=== PATIENT | female | born 1950 | race Caucasian/White ===

== ENCOUNTER 2017-11-17 07:13 | Emergency (ER) | payer MEDICARE, SELFPAY ==
[2017-11-17 07:19] VITALS: BP 147/77; PULSE 78; RESP 16; TEMP 36.6; O2SAT 97
--- NOTE | 2017-11-17 07:23 | ED.GENADUL ---
Disposition Clinical Impression: Olecranon bursitis, left elbow Disposition: HOME Condition: Stable Instructions: Elbow Bursitis (ED) Additional Instructions: follow up with your primary care provider if no improvement in 1 week if you have severe worsening of pain or it becomes red and warm to touch return to the emergency department Medical Decision Making - Medical Decision Making pt here with olecranon bursitis, no evidence of infection at this time. Advised RICE and f/u with pcp - Differential Diagnosis olecranon bursitis, cellulitis History of Present Illness - General Chief complaint: Orthopedic Stated complaint: LT ELBOW SWOLLEN Time Seen by Provider: 11/17/17 07:15 Source: patient Mode of arrival: ambulatory Limitations: no limitations - History of Present Illness Initial comments: 67 yo female comes in with cc of left elbow swelling for over a week. Denies trauma, redness, or pain. She has an enlarged olecranon bursa with no redness, warmth, tenderness and has full rom of the elbow. MD Complaint: left elbow swelling Onset/Timin -: week(s) Improves with: none Worsens with: none - Related Data Multivitamin 1 tab PO DAILY tab 10/01/16 Fluoxetine HCl 40 mg PO DAILY #90 tab-cap 12/12/16 Vitamin B Complex 1 each PO DAILY #90 cap 04/17/17 Ferrous Sulfate [Feosol] 325 mg PO DAILY #60 cap 05/13/17 Quetiapine Fumarate 50 mg PO hs prn #120 tab-cap 07/08/17 Thiamine Mononitrate [Vitamin B-1] 100 mg PO DAILY #90 tab 07/08/17 Pantoprazole Sodium 40 mg PO DAILY@0730 #90 tabcr 07/31/17 Cholecalciferol (Vitamin D3) [Vitamin D3] 3,000 unit PO DAILY #90 cap 08/10/17 Fluticasone Propionate [Flonase] 2 sprays NS BID #1 btl 08/18/17 Amlodipine Besylate 5 mg PO DAILY #60 tab-cap 09/25/17 Trazodone HCl 100 mg PO HS #120 tab-cap 09/25/17 Ventress-3 Fatty Acids/Fish Oil [Fish Oil 1,000 mg Softgel] 1 each PO DAILY #90 cap 11/13/17 Simvastatin 10 mg PO HS #90 tab 11/13/17 Sucralfate 1 gm PO AC & HS #90 tab 11/13/17 Allergies Allergy/AdvReac Type Severity Reaction Status Date / Time No Known Allergies Allergy Unverified 11/17/17 07:24 Review of Systems Constitutional: denies: fever Respiratory: denies: shortness of breath Cardiovascular: denies: chest pain Musculoskeletal: denies: back pain Skin: denies: rash Comment: All other systems reviewed and negative Past Medical History - Past Medical History Medical history: hypertension, liver disease anemia, duodenitis, gastritis, C. diff colitis Surgical history: hysterectomy - Social History Alcohol use: occasionally (reports significant decrease in alcohol consumption since last year) Drug use: none General Exam - General Limitations: no limitations General appearance: alert, in no apparent distress - Head Head exam: Present: atraumatic - Eye Eye exam: Present: normal apperance - ENT ENT exam: Present: mucous membranes moist - Neck Neck exam: Present: normal inspection - Respiratory Respiratory exam: Absent: respiratory distress - Cardiovascular Cardiovascular Exam: Present: regular rate - Extremities Exam Extremities exam: Present: full ROM, normal capillary refill - Neurological Exam Neurological exam: Present: alert, oriented X3. Absent: motor sensory deficit - Skin Skin exam: Present: warm Course Vital Signs - 24 hr 11/17/17 07:19 Temperature 97.8 F Pulse 78 Respiratory 16 Rate Blood Pressure 147/77 Pulse Oximetry 97
== END 2017-11-17 07:32 | disposition home or self-care (01) ==
PROVIDERS: Emergency Provider Emergency Medicine; PCP Internal Medicine
DX: M70.22 Olecranon bursitis, left elbow (principal); I10 Essential (primary) hypertension
CPT/HCPCS: 99282 ×2

== ENCOUNTER → 2017-12-03 07:53 | Outpatient (CLI) | payer MEDICARE, SELFPAY ==
[2017-12-03 11:27] LABS: Abs Immature Grans 0.01 k/cumm (0.0-0.09); Absolute Basophil Count 0.03 k/cumm (0.0-0.2); Absolute Lymphocyte Count 0.93 k/cumm (1.2-3.4); Absolute Monocyte Count 0.37 k/cumm (0.11-0.7); Absolute Neutrophil Count 4.51 k/cumm (1.2-6.7); Basophils % 0.5; Eosinophils % 1.7; HCT 38.5 % (36.0-46.0); HGB 13.1 g/dL (12.0-15.5); Immature Grans % 0.2; Lymphocytes % 15.6; Mean Corpuscular Hemoglobin 31.6 pg (27.0-33.0); Mean Platelet Volume 12.3 fL (8.0-11.0); Monocytes % 6.2; Neutrophils % 75.8; Platelet Count 193 x1000/uL (130-400); RBC 4.14 m/cumm (4.00-5.20); RBC Distribution Width 12.6 % (11.7-14.6); White Blood Cell Count 5.95 k/cumm (4.4-10.8)
[2017-12-03 11:41] LABS: Iron 80 ug/dL (50-175); Total Iron Binding Capacity 257 ug/dL (250-450); Transferrin Sat 31 % (15-50)
== END ==
PROVIDERS: PCP Internal Medicine; Visit Provider Internal Medicine
DX: D64.9 Anemia, unspecified (principal)
CPT/HCPCS: 36415; 83540; 83550; 85025

== ENCOUNTER 2018-04-21 09:08 | Outpatient (CLI) | payer MEDICARE, SELFPAY ==
[2018-04-21 11:43] LABS: Abs Immature Grans 0.01 k/cumm (0.0-0.09); Absolute Basophil Count 0.03 k/cumm (0.0-0.2); Absolute Eosinophil Count 0.23 k/cumm (0.0-0.7); Absolute Lymphocyte Count 0.81 k/cumm (1.2-3.4); Absolute Monocyte Count 0.44 k/cumm (0.11-0.7); Absolute Neutrophil Count 4.98 k/cumm (1.2-6.7); Basophils % 0.5; Eosinophils % 3.5; HCT 39.9 % (36.0-46.0); HGB 13.4 g/dL (12.0-15.5); Immature Grans % 0.2; Lymphocytes % 12.5; Mean Corp. HGB Concentration 33.6 g/dL (32.0-36.0); Mean Corpuscular Hemoglobin 30.4 pg (27.0-33.0); Mean Corpuscular Volume 90.5 fL (80-95); Mean Platelet Volume 12.3 fL (8.0-11.0); Monocytes % 6.8; Neutrophils % 76.5; Platelet Count 206 x1000/uL (130-400); RBC 4.41 m/cumm (4.00-5.20); RBC Distribution Width 12.3 % (11.7-14.6)
[2018-04-21 11:49] LABS: Iron 33 ug/dL (50-175); Total Iron Binding Capacity 269 ug/dL (250-450); Transferrin Sat 12 % (15-50)
[2018-04-21 11:57] LABS: ALT 19 U/L (12-78); AST 12 U/L (15-37); Alkaline Phosphatase 74 U/L (46-116); Anion Gap 7.5 mmol/L (3-11); BUN 21 mg/dL (7-18); Bilirubin, Total 0.6 mg/dL (0.2-1.0); CO2 27.5 mmol/L (21.0-32.0); CREATININE 1.09 mg/dL (0.55-1.02); Calcium 9.6 mg/dL (8.5-10.1); Chloride 104 mmol/L (98-107); Estimated GFR 50.07 (mL/min/1.73m2); Glucose 103 mg/dL (70-100); Potassium 3.6 mmol/L (3.5-5.1); Sodium 139 mmol/L (136-145); Total Protein 6.9 g/dL (6.4-8.2)
== END 2018-04-21 09:28 ==
PROVIDERS: PCP Internal Medicine; Visit Provider Internal Medicine
DX: F10.10 Alcohol abuse, uncomplicated (principal); D64.9 Anemia, unspecified; R42 Dizziness and giddiness; Z86.79 Personal history of other diseases of the circulatory system
CPT/HCPCS: 36415; 80053; 83540; 83550; 85025

== ENCOUNTER 2019-01-19 09:45 | Outpatient (CLI) | payer MEDICARE, SELFPAY ==
[2019-01-19 12:45] LABS: Abs Immature Grans 0.03 k/cumm (0.0-0.09); Absolute Basophil Count 0.04 k/cumm (0.0-0.2); Absolute Eosinophil Count 0.14 k/cumm (0.0-0.7); Absolute Lymphocyte Count 0.87 k/cumm (1.2-3.4); Absolute Neutrophil Count 6.05 k/cumm (1.2-6.7); Basophils % 0.5; Eosinophils % 1.9; HCT 37.8 % (36.0-46.0); HGB 12.5 g/dL (12.0-15.5); Immature Grans % 0.4; Lymphocytes % 11.6; Mean Corp. HGB Concentration 33.1 g/dL (32.0-36.0); Mean Corpuscular Hemoglobin 29.8 pg (27.0-33.0); Mean Corpuscular Volume 90.2 fL (80-95); Mean Platelet Volume 11.6 fL (8.0-11.0); Monocytes % 5.3; Neutrophils % 80.3; Platelet Count 235 x1000/uL (130-400); RBC 4.19 m/cumm (4.00-5.20); RBC Distribution Width 12.8 % (11.7-14.6); White Blood Cell Count 7.53 k/cumm (4.4-10.8)
[2019-01-19 13:48] LABS: ALT 14 U/L (14-59); AST 10 U/L (15-37); Alkaline Phosphatase 71 U/L (46-116); Anion Gap 6.7 mmol/L (3-11); BUN 15 mg/dL (7-18); Bilirubin, Total 0.6 mg/dL (0.2-1.0); CO2 28.3 mmol/L (21.0-32.0); CREATININE 1.21 mg/dL (0.55-1.02); Calcium 9.2 mg/dL (8.5-10.1); Chloride 103 mmol/L (98-107); Estimated GFR 44.38 (mL/min/1.73m2); Glucose 91 mg/dL (70-100); Potassium 4.2 mmol/L (3.5-5.1); Sodium 138 mmol/L (136-145); Total Protein 6.7 g/dL (6.4-8.2)
[2019-01-19 14:22] LABS: Iron 33 ug/dL (50-175); Total Iron Binding Capacity 282 ug/dL (250-450); Transferrin Sat 12 % (15-50)
== END 2019-01-19 10:05 ==
PROVIDERS: PCP Internal Medicine; Visit Provider Internal Medicine
DX: R50.9 Fever, unspecified (principal); I10 Essential (primary) hypertension; Z98.890 Other specified postprocedural states; D50.9 Iron deficiency anemia, unspecified
CPT/HCPCS: 36415; 80053; 83540; 83550; 85025

== ENCOUNTER 2019-02-19 02:09 | Outpatient (CLI) | payer MEDICARE, SELFPAY ==
--- NOTE | 2019-02-19 07:39 | DI.MAMMO_ITS ---
EXAM: MAMMO SCREENING CLINICAL HISTORY: screening, Z12.39 TECHNIQUE: Mammograms were interpreted according to the usual protocol including computer analysis w [employer] CAD system, tomosynthesis and C-view imaging. COMPARISON: January 2016 FINDINGS: The breasts are heterogeneously dense. No dominant mass or clumped microcalcification is identified in either breast. The current examination is compared with previous examinations including February 01 and there has been no gross interval change in appearance in comparison with the previous studies. IMPRESSION: No specific evidence of at this time. Routine screening examinations are suggested at yearly interva ls in this age group according to the ACS ACR guidelines. Category 1, breast density category C. BI-RADS Cat 1 - Negative Breast Density - Category C - Heterogeneously dense
== END 2019-02-19 02:29 ==
PROVIDERS: PCP Internal Medicine; Visit Provider Internal Medicine
DX: Z12.31 Encounter for screening mammogram for malignant neoplasm of breast (principal)
CPT/HCPCS: 77063; 77067

== ENCOUNTER 2019-10-05 14:32 | Emergency (ER) | payer MEDICARE, SELFPAY ==
[2019-10-05 14:37] VITALS: BP 165/84; PULSE 83; RESP 16; TEMP 36.7; O2SAT 97
--- NOTE | 2019-10-05 18:40 | ED.GENADUL_ITS ---
Discharge Plan Disposition Patient Disposition: HOME Condition: Stable Discharge Details Chief Complaint: RashLesion Clinical Impression: Bed bug bite, Itching Primary Care Provider: Allyson Gamez ED Provider: Jaz Golden Home Meds and New Rx's Prescriptions: New permethrin 5 % cream 1 applic TP ONCE Qty: 60 RF: 0 prednisone 20 mg tablet 40 mg PO DAILY Qty: 10 RF: 0 Continued sucralfate 1 gram tablet 1 gm PO BID RF: 0 ketoconazole 2 % shampoo 1 applic Topical PRN Qty: 120 RF: 3 simvastatin 10 mg tablet 10 mg PO HS Qty: 90 RF: 4 thiamine mononitrate (vit B1) 100 mg tablet 100 mg PO DAILY Qty: 90 RF: 4 amlodipine 5 mg tablet 5 mg PO DAILY Qty: 90 RF: 3 fluoxetine 40 mg capsule 40 mg PO DAILY Qty: 90 RF: 3 vitamin B complex Capsule 1 cap PO DAILY Qty: 90 RF: 3 quetiapine 25 mg tablet 50 mg PO hs prn Qty: 120 RF: 4 cholecalciferol (vitamin D3) 3,000 unit tablet 3,000 unit PO DAILY Qty: 90 RF: 4 pantoprazole 40 mg tablet,delayed release (DR/EC) 40 mg PO DAILY Qty: 90 RF: 3 trazodone 50 mg tablet 100 mg PO HS Qty: 120 RF: 4 omega-3 fatty acids-fish oil 300-1,000 mg capsule 1 cap PO DAILY Qty: 90 RF: 3 Discharge Instructions Instructions: Bed Bugs (ED) Additional Instructions: Use treatment for scabies after all close and bedding have been washed with hot water. Apply cream sparingly her face and leave on overnight then wash off in the morning and again re-wash the bedding in the clothes you slept in. Use Benadryl every 6 hours for itching if needed. Prednisone for inflammation for the next 5 days and to help alleviate itching. Follow-up with primary care doctor if not improved in the next 3 to 5 days. Return for any worsening, concerns or alarming symptoms sooner if needed Medical Decision Making 69-year-old woman concerned for possibility of bedbugs or mite infestation. Patient has had 1 month of symptoms described as itching and quite bothersome. Patient denies any changes to her lifestyle or new exposures. Patient reports her apartment complex was recently treated for bedbugs however patient symptoms have not resolved. Patient denies any difficulty breathing or shortness of breath or wheezing. Denies any symptoms of angioedema. Patient does have a diffuse hive-like rash which is somewhat confluent behind the knees. Rash is blanching. Patient is in no distress, breath sounds are clear and full. Patient's vital signs reviewed and mild hypertension noted without any sign of hypertension urgency or emergency. After evaluation of the patient will plan to treat with permethrin for the possibility of scabies as patient's rash has been present for quite some time and does have areas behind the folds of the knee which are somewhat concerning appearing. No significant webspace involvement. Patient does have a hive-like appearance to the rash therefore will recommend addition of Benadryl and prednisone x5 days. Patient agrees with this plan of care. Patient discussed and recommended precautions regarding washing her bedding and clothing prior to scabies treatment. Recommended patient follow-up with PCP for any persistence of symptoms or return to the emergency room for any worsening or concerns. Patient agrees with this plan of care. The patient was stable and requested discharge. Prior to discharge, my usual and customary return precautions were reviewed with the patient - this included follow-up instructions and reasons to return to the Emergency Department if conditions worsens, does not improve as expected, or other new concerns arise. HPI General Date/Time Provider Initiated Documentation: 10/05/19 14:57 . HPI Narrative: This is a pleasant 69-year-old woman who is describing a diffuse rash to her arms trunk and legs. Patient reports itching rash for the last month which began on August 22. Patient reports that the apartment complex in which she lives had noted bedbugs. Patient ultimately reports that her place of living was treated for bedbugs on September 22 however patient has persistent itching. Patient complains of diffuse itching and scattered hive-like rash. Patient denies any new exposures. Denies any new detergents. Patient denies any difficulty breathing shortness of breath or wheezing. She has no headache or dizziness. Patient reports been eating and drinking without difficulty. Urinating and moving bowels normally. Patient is in no apparent distress at this time. Patient has tried no management of her rash and itching. Patient concerned with the possibility of bed bugs and is requesting medication management. Patient denies any throat or perioral tingling or swelling. No sore throat, voice change. Patient again denies any new medications or changes in her lifestyle. Related Data Home Medications Medication Instructions Recorded Confirmed simvastatin 10 mg tablet 10 mg PO HS #90 tab 12/19/18 10/05/19 thiamine mononitrate (vit B1) 100 100 mg PO DAILY #90 tab 02/17/19 10/05/19 mg tablet amlodipine 5 mg tablet 5 mg PO DAILY #90 tab 03/20/19 10/05/19 fluoxetine 40 mg capsule 40 mg PO DAILY #90 cap 03/23/19 10/05/19 vitamin B complex 1 cap PO DAILY #90 cap 03/23/19 10/05/19 quetiapine 25 mg tablet 50 mg PO hs prn #120 tab-cap 04/16/19 10/05/19 cholecalciferol (vitamin D3) 75 3,000 unit PO DAILY #90 tab 06/02/19 10/05/19 mcg (3,000 unit) tablet pantoprazole 40 mg tablet,delayed 40 mg PO DAILY #90 tab 06/17/19 10/05/19 release ketoconazole 2 % shampoo 1 applic TOPICAL PRN #120 ml 07/09/19 10/05/19 sucralfate 1 gram tablet 1 gm PO BID tab 07/09/19 10/05/19 trazodone 50 mg tablet 100 mg PO HS #120 tab-cap 07/10/19 10/05/19 omega-3 fatty acids-fish oil 300 1 cap PO DAILY #90 cap 08/14/19 10/05/19 mg-1,000 mg capsule permethrin 1 applic TP ONCE #60 gm 10/05/19 prednisone 40 mg PO DAILY #10 tab 10/05/19 Previous Rx's Medication Instructions Recorded simvastatin 10 mg tablet 10 mg PO HS #90 tab 12/19/18 thiamine mononitrate (vit B1) 100 100 mg PO DAILY #90 tab 02/17/19 mg tablet amlodipine 5 mg tablet 5 mg PO DAILY #90 tab 03/20/19 fluoxetine 40 mg capsule 40 mg PO DAILY #90 cap 03/23/19 vitamin B complex 1 cap PO DAILY #90 cap 03/23/19 quetiapine 25 mg tablet 50 mg PO hs prn #120 tab-cap 04/16/19 cholecalciferol (vitamin D3) 75 3,000 unit PO DAILY #90 tab 06/02/19 mcg (3,000 unit) tablet pantoprazole 40 mg tablet,delayed 40 mg PO DAILY #90 tab 06/17/19 release ketoconazole 2 % shampoo 1 applic TOPICAL PRN #120 ml 07/09/19 trazodone 50 mg tablet 100 mg PO HS #120 tab-cap 07/10/19 omega-3 fatty acids-fish oil 300 1 cap PO DAILY #90 cap 08/14/19 mg-1,000 mg capsule permethrin 1 applic TP ONCE #60 gm 10/05/19 prednisone 40 mg PO DAILY #10 tab 10/05/19 Allergies Allergy/AdvReac Type Severity Reaction Status Date / Time No Known Allergies Allergy Unverified 10/05/19 14:44 General Stated Complaint: RashLesion MAUDE: 4 Review of Systems All systems reviewed & are unremarkable except as noted in HPI and below PFSH Medical History adult child of alcoholic parents (Inactive) Anxiety (Inactive) adult child of alcoholic Arthritis of first MTP joint (Inactive) Clostridium difficile colitis (Inactive) Family estrangement (Inactive) History of anxiety disorder (Inactive) 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 Brother No problems noted. Social History Smoking/Tobacco Use Status: Former Tobacco Use Alcohol Intake: current Alcohol Intake frequency: a few times a week Drug use: Occasionally Substance use type: marijuana Household members: none Pets and animals: No Duration: 30-45 minutes/day Frequency: 5-6 times per week Shira/Buddhism: None Special shira needs: No Do you feel safe at home: Yes Do you feel safe in your relationship?: Yes Exam Narrative Exam Narrative: CONST: Healthy appearing patient, in no acute distress. Well hydrated. Alert and oriented. HENMT: Head nomocephalic, normal to inspection. Atraumatic. Hearing grossly normal. Normal facial exam. Oral mucosa normal. Tounge normal. Dentition normal. Normal posterior oropharynx. Uvula midline. EYES: General normal appearance. Alignment normal. Eyelids normal. Conjunctiva normal. Sclera normal. NECK: Normal visual inspection. FROM. No lymphadenopathy. Trachea midline. No Midline tenderness. CHEST: Normal insepection of the chest. RESP: Normal respiratory effort. Speaking full sentences. No cough. No wheezing. No retractions. Clear to auscaltation. Breath sound equal and present bilaterally. CARDIO: No JVD. Normal PMI. Regular Rate. Regular Rhythm. Normal peripheral pulses. GI: Normal inspection of abdomen. No distension. Soft. Nontender. Bowel sounds present in all 4 quadrants. No rebound. No gaurding. MUSCULOSKELETAL: Normal Gait. FROM of all extremities. Distal neurovascularly intact. Sensation intact distally. SKIN: Normal. Dry. No rashes. Diffuse scattered hive-like rash, some areas that appear as if they could be tracts of rash. Patient indicates area behind her knees is mostly bothersome. Patient has welts noted diffusely which do jonathan. There is a area of swelling noted to the right thenar eminence consistent with either a confluent area of rash or a recent insect bite versus sting. Spares face and scalp NEURO: Alert and awake. Speech clear. PSYCH: Normal affect. Cooperative. Course Vital Signs Vital signs: Vital Signs Temperature 36.7 C 10/05/19 14:37 Pulse 83 10/05/19 14:37 Respiratory Rate 16 10/05/19 14:37 Blood Pressure 165/84 H 10/05/19 14:37 Pulse Oximetry 97 10/05/19 14:37 Temperature 36.7 C 10/05/19 14:37 Temperature Source Temporal Artery Scan 10/05/19 14:37 Pulse 83 10/05/19 14:37 Respiratory Rate 16 10/05/19 14:37 Respiratory Effort Non-Labored 10/05/19 14:42 Blood Pressure 165/84 H 10/05/19 14:37 Blood Pressure Position Sitting 10/05/19 14:37 Pulse Oximetry 97 10/05/19 14:37 Oxygen Delivery Method Room Air 10/05/19 14:37 Oxygen Flow Rate 0 10/05/19 14:37
== END 2019-10-05 15:55 | disposition home or self-care (01) ==
PROVIDERS: Emergency Provider Physician Assistant; PCP Nurse Practitioner
DX: L29.8 Other pruritus (principal); S80.871A Other superficial bite, right lower leg, initial encounter; S80.872A Other superficial bite, left lower leg, initial encounter; W57.XXXA Bitten or stung by nonvenomous insect and other nonvenomous arthropods, initial encounter; I10 Essential (primary) hypertension
CPT/HCPCS: 99283

== ENCOUNTER 2020-01-12 09:49 | Outpatient (REF) | payer MEDICARE, SELFPAY ==
[2020-01-12 13:55] LABS: Bilirubin Negative (Negative); Blood Negative (Negative); Clarity Sl Cloudy (Clear); Glucose Negative (Negative); Ketones Negative (Negative); Leukocyte Esterase Negative (Negative); Nitrite Negative (Negative)
== END 2020-01-12 10:09 ==
LOC: LBN 09:49
PROVIDERS: PCP Nurse Practitioner; Visit Provider Nurse Practitioner
DX: R39.15 Urgency of urination (principal)
CPT/HCPCS: 81003; 87086

== ENCOUNTER 2020-07-14 03:19 | Outpatient (CLI) | payer MEDICARE, SELFPAY ==
--- NOTE | 2020-07-14 07:15 | DI.MAMMO_ITS ---
EXAM: MG MAMMO SCREENING CLINICAL HISTORY: screening,z12.39. TECHNIQUE: Bilateral full field digital CC and MLO mammographic images were obtained with 3D tomosyn thesis and utilizing computer aided detection (CAD). COMPARISON: Prior mammograms dating back to 2011, the most recent being February 2019. FINDINGS: No new significant radiograph findings in the right breast. In the left breast a nodular densities anteriorly are unchanged from prior studies. No new spiculate d masses nor malignant-appearing microcalcification groups in either breast.. There is no significant architectural distortion nor skin thickening-retraction. IMPRESSION: Stable benign findings. No radiographic evidence of malignancy. BI-RADS Category 2 - Benign Findings Breast Density - Category C - Heterogeneously dense Breast density Category C or D implies that the patient has dense breast tissue. Dense breast tissue can make it harder to find cancer on a mammogram. Dense breast tissue is also associated with an incr eased risk of breast cancer. This information about the result of the mammogram report was provided to the patient to raise their awareness. Use this report when you speak with the patient about their risks for breast cancer, which includes their family history. At that time, you may recommend additional screening tests (Ultrasoun d or MRI) as these tests may add significant information. A negative radiographic report should not delay biopsy if a dominant or clinically suspicious mass is present. Up to ten percent of cancers are not identified on mammography. A negative report may reinforce clinical impression. Adenosis and dense breasts may obscure an underlying neoplasm. False positive reports average 6 to 10%. Patient will receive a letter notifying them of these results.
[2020-07-14 11:48] LABS: ALT 21 U/L (14-59); AST 14 U/L (15-37); Albumin 3.7 g/dL (3.4-5.0); Alkaline Phosphatase 78 U/L (46-116); Bilirubin, Direct 0.3 mg/dL (0.0-0.2); Total Protein 6.6 g/dL (6.4-8.2)
[2020-07-14 12:00] LABS: Calculated LDL 86 mg/dL (<100); Cholesterol 162 mg/dL (<200); HDL Cholesterol 60 mg/dL (40-60); Triglyceride 80 mg/dL (<150)
== END 2020-07-14 03:20 | disposition home or self-care (01) ==
LOC: LBO 03:19
PROVIDERS: PCP Nurse Practitioner; Visit Provider Nurse Practitioner
DX: Z12.31 Encounter for screening mammogram for malignant neoplasm of breast (principal); I10 Essential (primary) hypertension; F10.21 Alcohol dependence, in remission
CPT/HCPCS: 36415; 77063; 77067; 80061; 80076

== ENCOUNTER 2020-10-01 16:17 | Outpatient (REF) | payer MEDICARE, SELFPAY ==
[2020-10-01 16:41] LABS: ALT 13 U/L (14-59); AST 13 U/L (15-37); Albumin 3.7 g/dL (3.4-5.0); Alkaline Phosphatase 78 U/L (46-116); Anion Gap 12.5 mmol/L (3-11); BUN 17 mg/dL (7-18); CO2 25.5 mmol/L (21.0-32.0); CREATININE 1.3 mg/dL (0.55-1.02); Calcium 8.8 mg/dL (8.5-10.1); Chloride 103 mmol/L (98-107); Estimated GFR 40.61 (mL/min/1.73m2); Glucose 105 mg/dL (74-106); Magnesium 1.6 mg/dL (1.8-2.4); Sodium 141 mmol/L (136-145); Total Protein 6.4 g/dL (6.4-8.2)
[2020-10-01 16:50] LABS: Potassium 2.8 mmol/L (3.5-5.1)
== END 2020-10-02 16:18 | disposition home or self-care (01) ==
LOC: LBN 16:17
PROVIDERS: PCP Nurse Practitioner; Visit Provider Physician Assistant
DX: R60.0 Localized edema (principal)
CPT/HCPCS: 80053; 83735

== ENCOUNTER 2020-10-07 02:44 | Outpatient (CLI) | payer MEDICARE, SELFPAY ==
[2020-10-07 11:20] LABS: Anion Gap 9.9 mmol/L (3-11); BUN 16 mg/dL (7-18); CO2 28.1 mmol/L (21.0-32.0); CREATININE 1.1 mg/dL (0.55-1.02); Calcium 9.2 mg/dL (8.5-10.1); Chloride 104 mmol/L (98-107); Estimated GFR 49.25 (mL/min/1.73m2); Glucose 102 mg/dL (74-106); Potassium 3.8 mmol/L (3.5-5.1); Sodium 142 mmol/L (136-145)
== END 2020-10-07 02:45 | disposition home or self-care (01) ==
LOC: LBO 02:44
PROVIDERS: PCP Nurse Practitioner; Visit Provider Nurse Practitioner
DX: E87.6 Hypokalemia (principal)
CPT/HCPCS: 36415; 80048

== ENCOUNTER → 2020-12-01 09:56 | Outpatient (BNVA) | payer MEDICARE, SELFPAY | PROVIDERS: PCP Nurse Practitioner; Referring Provider Nurse Practitioner; Visit Provider Physical Therapy Assistant | DX: Z12.11 Encounter for screening for malignant neoplasm of colon (principal); I10 Essential (primary) hypertension ==

== ENCOUNTER 2022-03-27 02:34 | Outpatient (CLI) | payer OTHER, SELFPAY ==
[2022-03-27 12:30] LABS: HCT 39.4 % (36.0-46.0); MCH 29.8 pg (27.0-33.0); MCV 90 fL (80-95); MPV 11.7 fL (8.0-11.0); Platelet Count 210 10^3/uL (130-400); RBC 4.36 10^6/uL (3.93-5.22); RDW 14.1 % (11.7-14.6); RDW-SD 46.9 fL; WBC 7.07 10^3/uL (4.4-10.8)
[2022-03-27 12:48] LABS: ALT 26 U/L (14-59); AST 20 U/L (15-37); Albumin 3.7 g/dL (3.4-5.0); Alkaline Phosphatase 72 U/L (46-116); Anion Gap 8.5 mmol/L (3-11); BUN 20 mg/dL (7-18); Bilirubin, Total 1.2 mg/dL (0.2-1.0); CO2 29.5 mmol/L (21.0-32.0); CREATININE 1.3 mg/dL (0.55-1.02); Calcium 9.1 mg/dL (8.5-10.1); Calculated LDL 97 mg/dL (<100); Chloride 100 mmol/L (98-107); Cholesterol 175 mg/dL (<200); Estimated GFR 43.96 (mL/min/1.73m2); Glucose 106 mg/dL (74-106); HDL Cholesterol 59 mg/dL (40-60); Potassium 3.1 mmol/L (3.5-5.1); Sodium 138 mmol/L (136-145); Triglyceride 96 mg/dL (<150)
== END 2022-03-27 02:35 | disposition home or self-care (01) ==
LOC: LOS 02:35
PROVIDERS: PCP Nurse Practitioner Family; Visit Provider Nurse Practitioner Family
DX: K29.90 Gastroduodenitis, unspecified, without bleeding (principal); Z00.00 Encounter for general adult medical examination without abnormal findings; I10 Essential (primary) hypertension
CPT/HCPCS: 36415; 80053; 80061; 85027

== ENCOUNTER 2022-04-23 03:09 | Outpatient (CLI) | payer OTHER, SELFPAY ==
[2022-04-23 12:31] LABS: Anion Gap 8.6 mmol/L (3-11); BUN 21 mg/dL (7-18); CO2 30.4 mmol/L (21.0-32.0); CREATININE 1.3 mg/dL (0.55-1.02); Calcium 9.4 mg/dL (8.5-10.1); Chloride 100 mmol/L (98-107); Estimated GFR 43.96 (mL/min/1.73m2); Glucose 86 mg/dL (74-106); Sodium 139 mmol/L (136-145)
[2022-04-23 12:49] LABS: Potassium 2.7 mmol/L (3.5-5.1)
== END 2022-04-23 03:10 | disposition home or self-care (01) ==
LOC: LOS 03:09
PROVIDERS: PCP Nurse Practitioner Family; Visit Provider Nurse Practitioner Family
DX: I10 Essential (primary) hypertension (principal)
CPT/HCPCS: 36415; 80048

== ENCOUNTER 2022-04-27 01:10 | Outpatient (CLI) | payer OTHER, SELFPAY ==
[2022-04-27 12:23] LABS: Anion Gap 9.4 mmol/L (3-11); BUN 21 mg/dL (7-18); CO2 26.6 mmol/L (21.0-32.0); CREATININE 1.3 mg/dL (0.55-1.02); Calcium 9.1 mg/dL (8.5-10.1); Chloride 102 mmol/L (98-107); Estimated GFR 43.96 (mL/min/1.73m2); Glucose 103 mg/dL (74-106); Potassium 3.5 mmol/L (3.5-5.1); Sodium 138 mmol/L (136-145)
== END 2022-04-27 01:11 | disposition home or self-care (01) ==
LOC: LOS 01:11
PROVIDERS: PCP Nurse Practitioner Family; Visit Provider Nurse Practitioner Family
DX: E87.6 Hypokalemia (principal)
CPT/HCPCS: 36415; 80048

== ENCOUNTER 2022-07-18 01:52 | Outpatient (CLI) | payer OTHER, SELFPAY ==
--- NOTE | 2022-07-18 09:28 | DI.MAMMO_ITS ---
Exam(s) MAMMO SCREENING EXAM: MAMMO SCREENING CLINICAL HISTORY: screening,Z12.39 TECHNIQUE: Mammograms were interpreted according to the usual protocol including computer analysis w [employer] CAD system, tomosynthesis and C-view imaging. COMPARISON: 2013 through 2020 FINDINGS: The breasts are composed of heterogeneously dense fibroglandular densities, Breast Density category C . No suspicious masses or suspicious microcalcifications are seen. No skin thickening or abnormal axillary lymph nodes are seen. There has been no significant change from prior exams. IMPRESSION: BI-RADS Category 1, Negative mammogram. Yearly screening mammography is recommended. Breast Density Category C, heterogeneously Dense. The mammogram demonstrates the patient's breast tissue is dense. Dense breast tissue is very common a nd is not abnormal but dense breast tissue can make it harder to find cancer on a mammogram. Also, de nse breast tissue may increase breast cancer risk. This information about the result of the mammogram report was provided to the patient to raise their awareness. Use this report when you speak with the patient about their risks for breast cancer, which includes their family history. At that time, you may recommend additional screening tests (Ultrasound or MRI) as they might be useful based on their r isk. A negative radiographic report should not delay biopsy if a dominant or clinically suspicious mass is present. Up to ten percent of cancers are not identified on mammography. A negative report may reinforce clinical impression. Adenosis and dense breasts may obscure an underlying neoplasm. False positive reports average 6 to 10%.
== END 2022-07-18 02:12 ==
LOC: DI 01:53
PROVIDERS: PCP Nurse Practitioner Family; Visit Provider Nurse Practitioner Family
DX: Z12.31 Encounter for screening mammogram for malignant neoplasm of breast (principal)
CPT/HCPCS: 77063; 77067

== ENCOUNTER 2022-08-21 16:48 | Observation (INO) | payer OTHER, SELFPAY ==
[2022-08-21] VITALS (68 sets, daily range): BP systolic 157–179; BP diastolic 59–101; PULSE 56–86; RESP 13–29; TEMP 36.6; O2SAT 92–100
[2022-08-21] MEDS: Normal Saline 1,000 ML 1000 ML IV (17:52)
[2022-08-21 17:53] LABS: Abs Immature Grans 0.08 10^3/uL (0.0-0.06); Absolute Basophil Count 0.07 10^3/uL (0.0-0.2); Absolute Monocyte Count 0.77 10^3/uL (0.1-0.8); Basophils % 0.5; HCT 41.5 % (36.0-46.0); HGB 14.1 g/dL (11.2-15.7); Immature Grans % 0.6; MCH 30.2 pg (27.0-33.0); MCV 89 fL (80-95); MPV 11.1 fL (8.0-11.0); Monocytes % 5.8; Neutrophils % 85.1; Platelet Count 314 10^3/uL (130-400); RBC 4.67 10^6/uL (3.93-5.22); RDW 13.8 % (11.7-14.6); RDW-SD 44.5 fL
[2022-08-21 17:54] LABS: Absolute Lymphocyte Count 1.06 10^3/uL (1.2-3.4); Absolute Neutrophil Count 11.32 10^3/uL (1.2-6.7)
[2022-08-21 18:04] LABS: Prothrombin Time 10.2 sec (9.3-11.0)
[2022-08-21 18:08] LABS: ALT 29 U/L (14-59); AST 20 U/L (15-37); Albumin 4.3 g/dL (3.4-5.0); Alkaline Phosphatase 85 U/L (46-116); Anion Gap 17.6 mmol/L (3-11); BUN 10 mg/dL (7-18); Bilirubin, Total 2.1 mg/dL (0.2-1.0); CO2 19.4 mmol/L (21.0-32.0); CREATININE 1.4 mg/dL (0.55-1.02); Calcium 10.1 mg/dL (8.5-10.1); Chloride 105 mmol/L (98-107); Estimated GFR 40.22 (mL/min/1.73m2); Glucose 141 mg/dL (74-106); Magnesium 1.5 mg/dL (1.8-2.4); Sodium 142 mmol/L (136-145); Total Protein 7.8 g/dL (6.4-8.2)
[2022-08-21 18:10] LABS: Potassium 2.8 mmol/L (3.5-5.1)
[2022-08-21] MEDS: POTASSIUM CHLORIDE 10 MEQ/100 ML BAG 100 MEQ IVPB ×4 (18:29→21:45)
--- NOTE | 2022-08-21 18:40 | W.ED.GENAD ---
Discharge Plan Disposition Patient Disposition: Admit to [facility] Discharge Details Clinical Impression: Hypokalemia, Diarrhea, Hypomagnesemia Admit Date/Time: 08/21/22 21:46 Admit Provider: David Mustafa Attending Provider: David Mustafa Primary Care Provider: Jessica Hare ED Provider: Sherry Aguilar Discharge Data Discharge Date/Time-TO BE ENTERED AT DEPARTURE: 08/21/22 23:28 Medical Decision Making <Sherry Aguilar NP - Last Filed: 08/21/22 20:59> This is a 72-year-old female patient history of alcohol abuse and C. difficile colitis no recent antibiotic use presents for 1 week history of reported bloody diarrhea. No sick contacts with similar symptoms. Differentials include colitis, GI bleed, Hemodynamically she is stable. Will obtain stool to evaluate for C. difficile or other infectious colitis. She is given 1 L of normal saline. Labs are reviewed hemoglobin and hematocrit are 14 and 41. She has been unable to produce stool here. After receiving 1 L of normal saline she reports feeling markedly improved. Her abdominal exam is benign. Vital signs remained stable while being monitored in the department. She is given pantoprazole 40 mg IV push potassium repleted with 40 mEq of IV piggyback and magnesium with 2 g IV piggyback. Rectal exam performed no stool in rectal vault stool is negative for occult blood. Repeat abdominal exam remains benign will hold off on imaging for now. Her case is discussed with hospitalist services who will refer her to observation for further management and monitoring. Stool sampling collection is still pending. Report and care of patient is handed off to Dr. Mustafa Medical Records Medical records reviewed: Yes I reviewed the patient's medical records. Lab Data Lab results reviewed: Yes I reviewed the patient's lab results. Lab results narrative: 08/21/22 17:41 Stool Lactoferrin Latex Agglutination - Pending Laboratory Tests Range/Units 08/21/22 08/21/22 08/21/22 16:20 16:20 17:10 WBC Cancelled RBC Cancelled Hgb Cancelled Hct Cancelled MCV Cancelled MCH Cancelled MCHC Cancelled RDW Cancelled Plt Count Cancelled MPV Cancelled Immature Gran % Cancelled Neutrophils % Cancelled Band Neutrophils % Cancelled Lymphocytes % Cancelled Atypical Lymphs % Cancelled Monocytes % Cancelled Eosinophils % Cancelled Basophils % Cancelled Metamyelocytes % Cancelled Myelocytes % Cancelled Promyelocytes % Cancelled Other Cells % Cancelled Nucleated RBC % Cancelled Absolute Neutrophils Cancelled Absolute Lymphocytes Cancelled Absolute Monocytes Cancelled Absolute Eosinophils Cancelled Absolute Basophils Cancelled RBC Morphology Cancelled Polychromasia Cancelled Hypochromasia Cancelled Poikilocytosis Cancelled Basophilic Stippling Cancelled Anisocytosis Cancelled Microcytosis Cancelled Macrocytosis Cancelled Spherocytes Cancelled Tear Drop Cells Cancelled Ovalocytes Cancelled Stomatocytes Cancelled Joseph-[place] Bodies Cancelled [place] Cells/Echinocytes Cancelled Acanthocytes (Spur) Cancelled Schistocytes Cancelled PT (9.3-11.0) sec INR (0.9-1.1) VBG Lactate Sodium Cancelled 142 Potassium Cancelled 2.8 L* Chloride Cancelled 105 Carbon Dioxide Cancelled 19.4 L Anion Gap Cancelled 17.6 H BUN Cancelled 10 Creatinine Cancelled 1.4 H Est GFR (CKD-EPI 2020) Cancelled 40.22 Glucose Cancelled 141 H Calcium Cancelled 10.1 Magnesium (1.8-2.4) mg/dL 1.5 L Total Bilirubin Cancelled 2.1 H AST Cancelled 20 ALT Cancelled 29 Alkaline Phosphatase Cancelled 85 Total Protein Cancelled 7.8 Albumin Cancelled 4.3 Urine Color (Yellow) Urine Clarity (Clear) Urine pH (5-8) Ur Specific [place] (1.005-1.025) Urine Protein (Negative) mg/dL Urine Ketones (Negative) mg/dL Urine Blood (Negative) Urine Nitrite (Negative) Urine Bilirubin (Negative) Urine Urobilinogen (Up to 0.2) mg/dL Ur Leukocyte Esterase (Negative) Urine RBC (0-2) HPF Urine WBC (0-5) HPF Ur Epithelial Cells (Negative) HPF Urine Crystals (Negative) HPF Urine Bacteria (Negative) HPF Urine Casts (Negative) LPF Urine Mucus (Negative) Ur Culture Indicated? Urine Glucose (Negative) mg/dL Range/Units 08/21/22 08/21/22 08/21/22 17:10 17:10 19:35 WBC 13.30 H RBC 4.67 Hgb 14.1 Hct 41.5 MCV 89 MCH 30.2 MCHC 34.0 RDW 13.8 Plt Count 314 MPV 11.1 H Immature Gran % 0.6 Neutrophils % 85.1 Band Neutrophils % Lymphocytes % 8.0 Atypical Lymphs % Monocytes % 5.8 Eosinophils % 0.0 Basophils % 0.5 Metamyelocytes % Myelocytes % Promyelocytes % Other Cells % Nucleated RBC % 0.0 Absolute Neutrophils 11.32 H Absolute Lymphocytes 1.06 L Absolute Monocytes 0.77 Absolute Eosinophils 0.00 Absolute Basophils 0.07 RBC Morphology Polychromasia Hypochromasia Poikilocytosis Basophilic Stippling Anisocytosis Microcytosis Macrocytosis Spherocytes Tear Drop Cells Ovalocytes Stomatocytes Joseph-[place] Bodies [place] Cells/Echinocytes Acanthocytes (Spur) Schistocytes PT (9.3-11.0) sec 10.2 INR (0.9-1.1) 1.0 VBG Lactate Sodium Potassium Chloride Carbon Dioxide Anion Gap BUN Creatinine Est GFR (CKD-EPI 2020) Glucose Calcium Magnesium (1.8-2.4) mg/dL Total Bilirubin AST ALT Alkaline Phosphatase Total Protein Albumin Urine Color (Yellow) Yellow Urine Clarity (Clear) Clear Urine pH (5-8) 6.0 Ur Specific [place] (1.005-1.025) 1.020 Urine Protein (Negative) mg/dL Trace H Urine Ketones (Negative) mg/dL Trace H Urine Blood (Negative) Negative Urine Nitrite (Negative) Negative Urine Bilirubin (Negative) Negative Urine Urobilinogen (Up to 0.2) mg/dL 1.0 H Ur Leukocyte Esterase (Negative) Negative Urine RBC (0-2) HPF Negative Urine WBC (0-5) HPF Negative Ur Epithelial Cells (Negative) HPF Moderate Urine Crystals (Negative) HPF Negative Urine Bacteria (Negative) HPF Few Urine Casts (Negative) LPF 0-2 Hyaline Urine Mucus (Negative) Moderate Ur Culture Indicated? No/Sq. Contamination Urine Glucose (Negative) mg/dL Negative Range/Units 08/21/22 20:49 WBC RBC Hgb Hct MCV MCH MCHC RDW Plt Count MPV Immature Gran % Neutrophils % Band Neutrophils % Lymphocytes % Atypical Lymphs % Monocytes % Eosinophils % Basophils % Metamyelocytes % Myelocytes % Promyelocytes % Other Cells % Nucleated RBC % Absolute Neutrophils Absolute Lymphocytes Absolute Monocytes Absolute Eosinophils Absolute Basophils RBC Morphology Polychromasia Hypochromasia Poikilocytosis Basophilic Stippling Anisocytosis Microcytosis Macrocytosis Spherocytes Tear Drop Cells Ovalocytes Stomatocytes Joseph-[place] Bodies Cas Cells/Echinocytes Acanthocytes (Spur) Schistocytes PT (9.3-11.0) sec INR (0.9-1.1) VBG Lactate Cancelled Sodium Potassium Chloride Carbon Dioxide Anion Gap BUN Creatinine Est GFR (CKD-EPI 2020) Glucose Calcium Magnesium (1.8-2.4) mg/dL Total Bilirubin AST ALT Alkaline Phosphatase Total Protein Albumin Urine Color (Yellow) Urine Clarity (Clear) Urine pH (5-8) Ur Specific [place] (1.005-1.025) Urine Protein (Negative) mg/dL Urine Ketones (Negative) mg/dL Urine Blood (Negative) Urine Nitrite (Negative) Urine Bilirubin (Negative) Urine Urobilinogen (Up to 0.2) mg/dL Ur Leukocyte Esterase (Negative) Urine RBC (0-2) HPF Urine WBC (0-5) HPF Ur Epithelial Cells (Negative) HPF Urine Crystals (Negative) HPF Urine Bacteria (Negative) HPF Urine Casts (Negative) LPF Urine Mucus (Negative) Ur Culture Indicated? Urine Glucose (Negative) mg/dL <Martha Thorpe, DO - Last Filed: 08/22/22 02:46> This is a 72-year-old female patient history of alcohol abuse and C. difficile colitis no recent antibiotic use presents for 1 week history of reported bloody diarrhea. No sick contacts with similar symptoms. Differentials include colitis, GI bleed, Hemodynamically she is stable. Will obtain stool to evaluate for C. difficile or other infectious colitis. She is given 1 L of normal saline. Labs are reviewed hemoglobin and hematocrit are 14 and 41. She has been unable to produce stool here. After receiving 1 L of normal saline she reports feeling markedly improved. Her abdominal exam is benign. Vital signs remained stable while being monitored in the department. She is given pantoprazole 40 mg IV push potassium repleted with 40 mEq of IV piggyback and magnesium with 2 g IV piggyback. Rectal exam performed no stool in rectal vault stool is negative for occult blood. Repeat abdominal exam remains benign will hold off on imaging for now. Her case is discussed with hospitalist services who will refer her to observation for further management and monitoring. Stool sampling collection is still pending. Report and care of patient is handed off to Dr. Moon Thorpe Patient not seen or examined by me but I was available for consult if needed. HPI <Sherry Aguilar NP - Last Filed: 08/21/22 20:59> General Date/Time Provider Initiated Documentation: 08/21/22 16:52. Limitations to Documentation: no limitations. Information obtained by: patient. HPI Narrative: This is a 72-year-old female patient with a past medical history significant for alcohol abuse CVA with residual right-sided weakness, depression, who lives at the [facility] in comes in by EMS after 1 week history of reported bloody diarrhea. She states that the symptoms are similar to her previous history with C. difficile colitis. She denies any fevers. States that her oral intake has been poor secondary to her symptoms. She denies chest pain shortness of breath or fever. no recent antibiotic use She is extremely anxious on arrival. last etoh drink last night, denies history of withdrawal seizures or complications, reports drinking 4 vodka and cokes a day. Related Data Home Medications Medication Instructions Recorded Confirmed doxylamine succinate 25 mg tablet 25 mg PO QHS PRN 07/12/20 08/21/22 (Unisom (doxylamine)) losartan 100 mg tablet 100 mg PO DAILY #30 tabs 04/23/22 08/21/22 cholecalciferol (vitamin D3) 75 3,000 unit PO DAILY #90 tabs 06/28/22 08/21/22 mcg (3,000 unit) tablet omega-3 fatty acids-fish oil 300 1 cap PO DAILY #90 caps 06/28/22 08/21/22 mg-1,000 mg capsule pantoprazole 40 mg tablet,delayed 40 mg PO DAILY #90 tabs 06/28/22 08/21/22 release potassium chloride 20 mEq 20 meq PO DAILY #90 tabs 06/28/22 08/21/22 tablet,extended release simvastatin 10 mg tablet 10 mg PO HS #90 tabs 06/28/22 08/21/22 thiamine mononitrate (vit B1) 100 100 mg PO DAILY #90 tabs 06/28/22 08/21/22 mg tablet sucralfate 1 gram tablet 1 g PO BID #180 tabs 07/12/22 08/21/22 vitamin B complex 1 cap PO DAILY #90 caps 07/30/22 08/21/22 amlodipine 5 mg tablet 5 mg PO DAILY #90 tabs 08/07/22 08/21/22 fluoxetine 20 mg capsule 20 mg PO DAILY #90 caps 08/13/22 08/21/22 fluoxetine 40 mg capsule 40 mg PO DAILY #90 caps 08/13/22 08/21/22 quetiapine 50 mg tablet 50 mg PO DAILY #90 tabs 08/13/22 08/21/22 trazodone 100 mg tablet 100 mg PO QHS PRN sleep #90 tabs 08/13/22 08/21/22 Previous Rx's Medication Instructions Recorded losartan 100 mg tablet 100 mg PO DAILY #30 tabs 04/23/22 cholecalciferol (vitamin D3) 75 3,000 unit PO DAILY #90 tabs 06/28/22 mcg (3,000 unit) tablet omega-3 fatty acids-fish oil 300 1 cap PO DAILY #90 caps 06/28/22 mg-1,000 mg capsule pantoprazole 40 mg tablet,delayed 40 mg PO DAILY #90 tabs 06/28/22 release potassium chloride 20 mEq 20 meq PO DAILY #90 tabs 06/28/22 tablet,extended release simvastatin 10 mg tablet 10 mg PO HS #90 tabs 06/28/22 thiamine mononitrate (vit B1) 100 100 mg PO DAILY #90 tabs 06/28/22 mg tablet sucralfate 1 gram tablet 1 g PO BID #180 tabs 07/12/22 vitamin B complex 1 cap PO DAILY #90 caps 07/30/22 amlodipine 5 mg tablet 5 mg PO DAILY #90 tabs 08/07/22 fluoxetine 20 mg capsule 20 mg PO DAILY #90 caps 08/13/22 fluoxetine 40 mg capsule 40 mg PO DAILY #90 caps 08/13/22 quetiapine 50 mg tablet 50 mg PO DAILY #90 tabs 08/13/22 trazodone 100 mg tablet 100 mg PO QHS PRN sleep #90 tabs 08/13/22 Allergies Allergy/AdvReac Type Severity Reaction Status Date / Time No Known Allergies Allergy Verified 08/21/22 16:56 General Stated Complaint: Nausea/Vomit/Diar MAUDE: 3 Review of Systems <Sherry Aguilar NP - Last Filed: 08/21/22 20:59> All systems reviewed & are unremarkable except as noted in HPI and below PFSH <Sherry Aguilar NP - Last Filed: 08/21/22 20:59> All Active Problems (Updated 08/21/22 @ 23:37 by David Mustafa) H/O Clostridium difficile infection (Acute) Gastroenteritis (Acute) Alcoholic liver disease (Chronic) Hematochezia (Acute) Diarrhea (Acute) Hypomagnesemia (Acute) Blood in the stool (Acute) Hypokalemia (Acute) Restless leg syndrome (Acute) Insomnia (Acute) Gastroesophageal reflux disease (Acute) Alcohol use disorder, moderate, in early remission (Chronic 11/01/16) Cerebrovascular accident (CVA) (Chronic 11/18/12) residual tingling on right tn right but no weakness tell us that the residual headaches tingling Depressive disorder (Acute) Osteoarthritis (Acute) Gastritis and duodenitis (Acute) Hypertension (Acute) Medical History adult child of alcoholic parents Anxiety adult child of alcoholic Arthritis of first MTP joint Clostridium difficile colitis Elevated liver function tests normal in 2020 Family estrangement Goiter (12/04/12) NORMAL THYROID FUNCTION History of anxiety disorder Insomnia (12/05/15) uses otc Insomnia due to alcohol NSAID induced gastritis Peptic ulcer disease Right renal mass cyst CT 2017- no f/u needed Screening for colon cancer declines screening Surgical History Arthroplasty of knee (~1989) LEFT Dilation and curettage History of arthroscopy of knee Hysterectomy, Laproscopic HAS OVARIES Status post dilation and curettage Status post laparoscopic hysterectomy Family History Mother Diabetes Father Neoplasm Social History Smoking/Tobacco Use Status: Former Tobacco Use tobacco type: cigarettes Second Hand Exposure: Yes Smoking risk assessment performed?: Yes Alcohol Intake: current Alcohol Intake frequency: a few times a week Alcohol type: beer Drug use: Occasionally Substance use type: marijuana Caregiver/Support person: No Do you need help understanding health information?: Rarely Pets and animals: No Sexually active: No Do you think of yourself as: straight/heterosexual Current gender identity: female What is your relationship status?: How often do you talk on the phone with friends or family?: three or more times per week How often do you get together with friends or relatives?: once per week How often do you attend mormonism or adventist services?: 1-3 times per year Do you belong to any clubs or organized social groups?: no Panel score (0-1 are the most socially isolated patients): 1 Shira/Jain: None Special shira needs: No Seatbelt use: always Drive intox or ride w/intox driver manager: No Do you feel safe at home: Yes Do you feel safe in your relationship?: Yes Exam <Sherry Aguilar NP - Last Filed: 08/21/22 20:59> Const General: cooperative, in distress moderate (Anxiety) and ill appearing chronically Nutritional Appearance: average body habitus Orientation: alert, awake and oriented x3 HENMT Head: normal to inspection, normocephalic and atraumatic Mouth: moist mucous membranes abnormal (Slightly dry no exudate) Resp Effort & Inspection: normal respiratory effort Cardio Rate: regular rate Rhythm: regular rhythm GI Inspection: normal to inspection and non-distended Palpation: soft, not firm and no guarding Rectal Exam - female: visual inspection normal, normal sphincter tone, heme negative stool and other (No stool in rectal vault) Skin General skin exam: no rashes or lesions noted Psych Appearance: disheveled Mood: anxious mood Affect: anxious affect Attitude: cooperative Insight: fair Judgment: fair Course <Sherry Aguilar NP - Last Filed: 08/21/22 20:59> Vital Signs Vital signs: Vital Signs Temperature 36.6 C 08/21/22 16:52 Pulse 76 08/21/22 16:52 Respiratory Rate 24 08/21/22 16:52 Blood Pressure 172/88 H 08/21/22 16:52 Pulse Oximetry 100 08/21/22 16:52 Temperature 36.6 C 08/21/22 16:52 Temperature Source Skin 08/21/22 16:52 Pulse 59 L 08/21/22 18:30 Respiratory Rate 24 08/21/22 16:52 Respiratory Effort Normal 08/21/22 16:56 Blood Pressure 166/73 H 08/21/22 18:30 Blood Pressure Mean 97 08/21/22 18:30 Blood Pressure Position Sitting 08/21/22 16:52 Pulse Oximetry 97 08/21/22 18:31 Oxygen Delivery Method Room Air 08/21/22 16:52 Oxygen Flow Rate 0 08/21/22 16:52 Pain Level 2 08/21/22 16:52 Lab/Test Results Lab/Test Results: 08/21/22 17:41 Stool Lactoferrin Latex Agglutination - Pending Laboratory Tests Range/Units 08/21/22 08/21/22 08/21/22 17:10 17:10 17:10 WBC (4.4-10.8) 10^3/uL 13.30 H RBC (3.93-5.22) 10^6/uL 4.67 Hgb (11.2-15.7) g/dL 14.1 Hct (36.0-46.0) % 41.5 MCV (80-95) fL 89 MCH (27.0-33.0) pg 30.2 MCHC (32.0-36.0) % 34.0 RDW (11.7-14.6) % 13.8 Plt Count (130-400) 10^3/uL 314 MPV (8.0-11.0) fL 11.1 H Immature Gran % 0.6 Neutrophils % 85.1 Lymphocytes % 8.0 Monocytes % 5.8 Eosinophils % 0.0 Basophils % 0.5 Nucleated RBC % (0.0-0.3) % 0.0 Absolute Neutrophils (1.2-6.7) 10^3/uL 11.32 H Absolute Lymphocytes (1.2-3.4) 10^3/uL 1.06 L Absolute Monocytes (0.1-0.8) 10^3/uL 0.77 Absolute Eosinophils (0.0-0.7) 10^3/uL 0.00 Absolute Basophils (0.0-0.2) 10^3/uL 0.07 PT (9.3-11.0) sec 10.2 INR (0.9-1.1) 1.0 Sodium (136-145) mmol/L 142 Potassium (3.5-5.1) mmol/L 2.8 L* Chloride (98-107) mmol/L 105 Carbon Dioxide (21.0-32.0) mmol/L 19.4 L Anion Gap (3-11) mmol/L 17.6 H BUN (7-18) mg/dL 10 Creatinine (0.55-1.02) mg/dL 1.4 H Est GFR (CKD-EPI 2020) (mL/min/1.73m2) 40.22 Glucose (74-106) mg/dL 141 H Calcium (8.5-10.1) mg/dL 10.1 Magnesium (1.8-2.4) mg/dL 1.5 L Total Bilirubin (0.2-1.0) mg/dL 2.1 H AST (15-37) U/L 20 ALT (14-59) U/L 29 Alkaline Phosphatase (46-116) U/L 85 Total Protein (6.4-8.2) g/dL 7.8 Albumin (3.4-5.0) g/dL 4.3 PAWSS <Sherry Aguilar NP - Last Filed: 08/21/22 20:59> Have you Been Recently Intoxicated or Drunk Within the Last 30 days?: Yes Have you Ever Experienced Previous Episodes of Alcohol Withdrawal?: No Have you ever Experienced Withdrawal Seizures?: No Have you ever Experienced Delirium Tremens(DT)s?: No Have you ever undergone Alcohol Rehabilitation Treatment (i.e, inpt ot outpatient treatment programs)?: No Have you ever Experienced Blackouts?: No Have you ever Combined Alcohol with other Downers within the last 90 days?: No Have you ever Combined Alcohol with any other Substance of Abuse during the last 90 days?: No Positive Blood Alcohol level on Presentation? [PCS.BAL]: No Evidence of Increased Autonomic Activity (i.e. HR>120, tremor, sweating, agitation, nausea)?: No Result: 1 <Martha Thorpe DO - Last Filed: 08/22/22 02:46> Result: 1
[2022-08-21] MEDS: MAGNESIUM SULFATE 2 GM/50 ML BAG IVPB (18:49)
[2022-08-21 19:44] LABS: Bilirubin Negative (Negative); Blood Negative (Negative); Clarity Clear (Clear); Glucose Negative (Negative); Ketones Trace mg/dL (Negative); Leukocyte Esterase Negative (Negative); Nitrite Negative (Negative)
[2022-08-21 20:00] LABS: Bacteria Few HPF (Negative); C & S Indicated? No/Sq. Contamination; Casts 0-2 Hyaline LPF (Negative); Crystals Negative HPF (Negative); Epithelial Cells Moderate HPF (Negative); Mucus Moderate (Negative); RBC Negative HPF (0-2); WBC Negative HPF (0-5)
[2022-08-21] MEDS: Pantoprazole 40 MG VIAL IVP (20:00)
[2022-08-21 21:31] LABS: Prothrombin Time 10.3 sec (9.3-11.0)
[2022-08-21 21:36] LABS: ETHANOL BLOOD < 3.0 mg/dL (<10)
--- NOTE | 2022-08-21 21:39 | W.PM.HP.N ---
Date of service: 08/21/22 Time of Service: 21:39 Assessment and Plan Assessment and plan (1) Gastroenteritis: Start date: 08/21/22 Status: Acute Assessment and plan: Patient appears to have a new onset of loose stools but no nausea and vomiting though this was indicated on the ED report. She does have no stool in her vault and negative heme testing of her stools in the ED. She has had no diarrheal stools in the ED. She does feel better after an IV fluids of 1 L normal saline and may have been slightly dry. She will be observed overnight with clear fluid diet with labs in the morning to check for repletion of electrolytes. CIWA protocol is in place. She is a full code. (2) Hematochezia: Start date: 08/21/22 Status: Acute Assessment and plan: Patient has negative stool in the rectal vault per ED physician after rectal exam. Observe for continued symptoms while hospitalized with clear fluid diet. If no recurrence consider colonoscopy at some point for evaluation which I think the patient has refused in the past. Recheck hemoglobin in the morning with patient not being anemic with her reported blood loss. (3) Hypomagnesemia: Start date: 08/21/22 Status: Acute Assessment and plan: Replete with IV magnesium and follow-up lab in the morning. Patient may need to be on oral magnesium but definitely needs to stop drinking alcohol. (4) Hypokalemia: Start date: 08/21/22 Status: Acute Assessment and plan: Replete with IV potassium and follow-up lab in the morning. Patient is already on potassium supplementation though she is on no diuretics. This may be secondary to her chronic alcohol use. Alcohol cessation would be ideal. (5) H/O Clostridium difficile infection: Status: Acute (6) Alcohol use disorder, moderate, in early remission: Status: Chronic Assessment and plan: Patient not drink alcohol prior to admission today but does drink significantly weekly. She will be placed on CIWA protocol and long-term should stop alcohol entirely which may be worsening her hypertension as well as electrolyte abnormalities. She does not drink to help her sleep though she does have insomnia. (7) Alcoholic liver disease: Status: Chronic Assessment and plan: Follow-up lab in the morning. Patient is advised to stop drinking alcohol and because of alcohol use almost daily we will have alcohol withdrawal protocol with CIWA scoring and Ativan if needed. She will receive 1 dose of Ativan to help with sleep tonight. (8) Cerebrovascular accident (CVA): Status: Chronic Assessment and plan: Left cerebral hemisphere in the past with right-sided weakness which is resolved. Patient is on statin therapy. Physical therapy to evaluate for safety at home. Qualifiers: CVA mechanism: unspecified Qualified Code(s): I63.9 - Cerebral infarction, unspecified (9) Gastroesophageal reflux disease: Status: Acute Assessment and plan: Continue PPI. Qualifiers: Esophagitis presence: esophagitis presence not specified Qualified Code(s): K21.9 - Gastro-esophageal reflux disease without esophagitis (10) Anxiety: Assessment and plan: Continue high-dose Prozac and Seroquel the patient also on trazodone with help with sleep. Oddly she takes these medicines all at 2 PM and still does not go to sleep until midnight. She needs to review this regimen with a sleep specialist and her PCP. History of Present Illness History of Present Illness Chief Complaint: Diarrhea with bloody stools. Narrative: This is a 72-year-old female patient who lives alone at the [facility] and and has alcohol intake of about 3/5 of vodka weekly drinking vodka and coke daily as mixed drinks who presented to the ED with diarrhea over the last several days and bright red blood in her stool at times which was similar to when she had had C. difficile in the past. She does have a long history of sleeplessness taking her nighttime pills at 2 PM at high doses of trazodone 100 mg and Prozac 60 mg along with Seroquel but still does not fall asleep till midnight and is up early in the morning. 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 She has not gotten off the sleep pattern and finds this difficult. She has not seen sleep medicine. She does have hypertension and some chronic liver function changes from her alcohol use. She does like to drink and does not drink to help her sleep. She is a very poor historian. Her recent diarrhea did not cause any weakness or dizziness and she denies any abdominal pain with no nausea or vomiting. She simply has had looser stools. The blood in her stool has been not a large volume. She received 1 L of fluid in the ED and felt better but is able to eat and drink and will be switched to a clear fluid diet. She has electrolyte abnormalities which may be from her diarrhea and alcohol use and these were repleted in the ED with follow-up lab in morning. She will be observed overnight and if stable discharge home. She is at risk for alcohol withdrawal and CIWA protocol will be in place with a low-dose of Ativan to be given tonight to help with sleep. She is already taking her daily medications including her nighttime pills at 2 PM. She will be given a single dose of amlodipine because of elevated blood pressure upon admission. She is a full code. Review of Systems Narrative: 13 point review of systems otherwise unrevealing or stable. Patient denies any weight loss. She is chronically anxious. PFSH All Active Problems (Updated 08/21/22 @ 23:37 by David Mustafa) H/O Clostridium difficile infection (Acute) Gastroenteritis (Acute) Alcoholic liver disease (Chronic) Hematochezia (Acute) Diarrhea (Acute) Hypomagnesemia (Acute) Blood in the stool (Acute) Hypokalemia (Acute) Restless leg syndrome (Acute) Insomnia (Acute) Gastroesophageal reflux disease (Acute) Alcohol use disorder, moderate, in early remission (Chronic 11/01/16) Cerebrovascular accident (CVA) (Chronic 11/18/12) residual tingling on right tn right but no weakness tell us that the residual headaches tingling Depressive disorder (Acute) Osteoarthritis (Acute) Gastritis and duodenitis (Acute) Hypertension (Acute) Medical History adult child of alcoholic parents Anxiety adult child of alcoholic Arthritis of first MTP joint Clostridium difficile colitis Elevated liver function tests normal in 2020 Family estrangement Goiter (12/04/12) NORMAL THYROID FUNCTION History of anxiety disorder Insomnia (12/05/15) uses otc Insomnia due to alcohol NSAID induced gastritis Peptic ulcer disease Right renal mass cyst CT 2017- no f/u needed Screening for colon cancer declines screening Surgical History Arthroplasty of knee (~1989) LEFT Dilation and curettage History of arthroscopy of knee Hysterectomy, Laproscopic HAS OVARIES Status post dilation and curettage Status post laparoscopic hysterectomy Family History Mother Diabetes Father Neoplasm Social History Smoking/Tobacco Use Status: Former Tobacco Use tobacco type: cigarettes Second Hand Exposure: Yes Smoking risk assessment performed?: Yes Alcohol Intake: current Alcohol Intake frequency: a few times a week Alcohol type: beer Drug use: Occasionally Substance use type: marijuana Caregiver/Support person: No Do you need help understanding health information?: Rarely Pets and animals: No Sexually active: No Do you think of yourself as: straight/heterosexual Current gender identity: female What is your relationship status?: How often do you talk on the phone with friends or family?: three or more times per week How often do you get together with friends or relatives?: once per week How often do you attend holiness or alevism services?: 1-3 times per year Do you belong to any clubs or organized social groups?: no Panel score (0-1 are the most socially isolated patients): 1 Shira/Cheondoism: None Special shira needs: No Seatbelt use: always Drive intox or ride w/intox stage driver: No Do you feel safe at home: Yes Do you feel safe in your relationship?: Yes Meds Allergies and Home Medications Allergies Allergy/AdvReac Type Severity Reaction Status Date / Time No Known Allergies Allergy Verified 08/21/22 16:56 Home Medications Medication Instructions Recorded Confirmed Type doxylamine succinate 25 mg tablet 25 mg PO QHS PRN 07/12/20 08/21/22 History (Unisom (doxylamine)) losartan 100 mg tablet 100 mg PO DAILY #30 tabs 04/23/22 08/21/22 Rx cholecalciferol (vitamin D3) 75 3,000 unit PO DAILY #90 tabs 06/28/22 08/21/22 Rx mcg (3,000 unit) tablet omega-3 fatty acids-fish oil 300 1 cap PO DAILY #90 caps 06/28/22 08/21/22 Rx mg-1,000 mg capsule pantoprazole 40 mg tablet,delayed 40 mg PO DAILY #90 tabs 06/28/22 08/21/22 Rx release potassium chloride 20 mEq 20 meq PO DAILY #90 tabs 06/28/22 08/21/22 Rx tablet,extended release simvastatin 10 mg tablet 10 mg PO HS #90 tabs 06/28/22 08/21/22 Rx thiamine mononitrate (vit B1) 100 100 mg PO DAILY #90 tabs 06/28/22 08/21/22 Rx mg tablet sucralfate 1 gram tablet 1 g PO BID #180 tabs 07/12/22 08/21/22 Rx vitamin B complex 1 cap PO DAILY #90 caps 07/30/22 08/21/22 Rx amlodipine 5 mg tablet 5 mg PO DAILY #90 tabs 08/07/22 08/21/22 Rx fluoxetine 20 mg capsule 20 mg PO DAILY #90 caps 08/13/22 08/21/22 Rx fluoxetine 40 mg capsule 40 mg PO DAILY #90 caps 08/13/22 08/21/22 Rx quetiapine 50 mg tablet 50 mg PO DAILY #90 tabs 08/13/22 08/21/22 Rx trazodone 100 mg tablet 100 mg PO QHS PRN sleep #90 tabs 08/13/22 08/21/22 Rx Exam Narrative Exam Narrative: General: Patient appears appropriate for age, anxious with good eye contact but pressured speech. She is alert and oriented to person, place and time. She is in moderate distress from her anxiety and concerned about general health. HEENT: Normocephalic, unkempt hair, coarsened facial features, eyes with pupils equal reactive to light symmetrically, extraocular movement tact and sclera anicteric. Oropharynx with moist mucosa and fair dentition. Neck: Supple without JVD. Back: Stooped posture without CVA tenderness. Lungs: Fair aeration clear to auscultation percussion. Breast: Exam deferred. Heart: Regular rate and rhythm with no murmurs gallops appreciated. Abdomen: Obese contour, soft and nontender to palpation with no guarding or rebound. No palpable hepatosplenomegaly. Bowel sounds positive and hyperactive in all quadrants. Genitalia/rectal: Exam deferred. Extremities: Without clubbing, cyanosis or pitting edema. Fair capillary refill. Skin: Normal color, warm and dry. Neuro: Cranial nerves II through XII gross intact, no focalizing motor deficits despite previous left CVA with right hemiparesis which has resolved. No tremor. Psych: Anxious with depressed mood. Labile affect. No abnormal thought processes. Remote and recent memory grossly intact. Results Labs 08/21/22 17:10 08/21/22 17:10 Labs: Laboratory Results - last 24 hr 08/21/22 08/21/22 08/21/22 16:20 16:20 17:10 WBC Cancelled RBC Cancelled Hgb Cancelled Hct Cancelled MCV Cancelled MCH Cancelled MCHC Cancelled RDW Cancelled Plt Count Cancelled MPV Cancelled Immature Gran % Cancelled Neutrophils % Cancelled Band Neutrophils % Cancelled Lymphocytes % Cancelled Atypical Lymphs % Cancelled Monocytes % Cancelled Eosinophils % Cancelled Basophils % Cancelled Metamyelocytes % Cancelled Myelocytes % Cancelled Promyelocytes % Cancelled Other Cells % Cancelled Nucleated RBC % Cancelled Absolute Neutrophils Cancelled Absolute Lymphocytes Cancelled Absolute Monocytes Cancelled Absolute Eosinophils Cancelled Absolute Basophils Cancelled RBC Morphology Cancelled Polychromasia Cancelled Hypochromasia Cancelled Poikilocytosis Cancelled Basophilic Stippling Cancelled Anisocytosis Cancelled Microcytosis Cancelled Macrocytosis Cancelled Spherocytes Cancelled Tear Drop Cells Cancelled Ovalocytes Cancelled Stomatocytes Cancelled Joseph-Glenford Bodies Cancelled Sterling Cells/Echinocytes Cancelled Acanthocytes (Spur) Cancelled Schistocytes Cancelled PT INR VBG Lactate Sodium Cancelled 142 Potassium Cancelled 2.8 L* Chloride Cancelled 105 Carbon Dioxide Cancelled 19.4 L Anion Gap Cancelled 17.6 H BUN Cancelled 10 Creatinine Cancelled 1.4 H Est GFR (CKD-EPI 2020) Cancelled 40.22 Glucose Cancelled 141 H Calcium Cancelled 10.1 Magnesium 1.5 L Total Bilirubin Cancelled 2.1 H AST Cancelled 20 ALT Cancelled 29 Alkaline Phosphatase Cancelled 85 Total Protein Cancelled 7.8 Albumin Cancelled 4.3 Urine Color Urine Clarity Urine pH Ur Specific Harrells Urine Protein Urine Ketones Urine Blood Urine Nitrite Urine Bilirubin Urine Urobilinogen Ur Leukocyte Esterase Urine RBC Urine WBC Ur Epithelial Cells Urine Crystals Urine Bacteria Urine Casts Urine Mucus Ur Culture Indicated? Urine Glucose Ethyl Alcohol 08/21/22 08/21/22 08/21/22 17:10 17:10 19:35 WBC 13.30 H RBC 4.67 Hgb 14.1 Hct 41.5 MCV 89 MCH 30.2 MCHC 34.0 RDW 13.8 Plt Count 314 MPV 11.1 H Immature Gran % 0.6 Neutrophils % 85.1 Band Neutrophils % Lymphocytes % 8.0 Atypical Lymphs % Monocytes % 5.8 Eosinophils % 0.0 Basophils % 0.5 Metamyelocytes % Myelocytes % Promyelocytes % Other Cells % Nucleated RBC % 0.0 Absolute Neutrophils 11.32 H Absolute Lymphocytes 1.06 L Absolute Monocytes 0.77 Absolute Eosinophils 0.00 Absolute Basophils 0.07 RBC Morphology Polychromasia Hypochromasia Poikilocytosis Basophilic Stippling Anisocytosis Microcytosis Macrocytosis Spherocytes Tear Drop Cells Ovalocytes Stomatocytes Joseph-Glenford Bodies Cas Cells/Echinocytes Acanthocytes (Spur) Schistocytes PT 10.2 INR 1.0 VBG Lactate Sodium Potassium Chloride Carbon Dioxide Anion Gap BUN Creatinine Est GFR (CKD-EPI 2020) Glucose Calcium Magnesium Total Bilirubin AST ALT Alkaline Phosphatase Total Protein Albumin Urine Color Yellow Urine Clarity Clear Urine pH 6.0 Ur Specific Harrells 1.020 Urine Protein Trace H Urine Ketones Trace H Urine Blood Negative Urine Nitrite Negative Urine Bilirubin Negative Urine Urobilinogen 1.0 H Ur Leukocyte Esterase Negative Urine RBC Negative Urine WBC Negative Ur Epithelial Cells Moderate Urine Crystals Negative Urine Bacteria Few Urine Casts 0-2 Hyaline Urine Mucus Moderate Ur Culture Indicated? No/Sq. Contamination Urine Glucose Negative Ethyl Alcohol 08/21/22 08/21/22 08/21/22 20:49 21:07 21:07 WBC RBC Hgb Hct MCV MCH MCHC RDW Plt Count MPV Immature Gran % Neutrophils % Band Neutrophils % Lymphocytes % Atypical Lymphs % Monocytes % Eosinophils % Basophils % Metamyelocytes % Myelocytes % Promyelocytes % Other Cells % Nucleated RBC % Absolute Neutrophils Absolute Lymphocytes Absolute Monocytes Absolute Eosinophils Absolute Basophils RBC Morphology Polychromasia Hypochromasia Poikilocytosis Basophilic Stippling Anisocytosis Microcytosis Macrocytosis Spherocytes Tear Drop Cells Ovalocytes Stomatocytes Joseph-Glenford Bodies Cas Cells/Echinocytes Acanthocytes (Spur) Schistocytes PT 10.3 INR 1.0 VBG Lactate Cancelled Sodium Potassium Chloride Carbon Dioxide Anion Gap BUN Creatinine Est GFR (CKD-EPI 2020) Glucose Calcium Magnesium Total Bilirubin AST ALT Alkaline Phosphatase Total Protein Albumin Urine Color Urine Clarity Urine pH Ur Specific Harrells Urine Protein Urine Ketones Urine Blood Urine Nitrite Urine Bilirubin Urine Urobilinogen Ur Leukocyte Esterase Urine RBC Urine WBC Ur Epithelial Cells Urine Crystals Urine Bacteria Urine Casts Urine Mucus Ur Culture Indicated? Urine Glucose Ethyl Alcohol < 3.0 Last Vital Signs Temp 36.6 C 08/21/22 16:52 Pulse 65 08/21/22 21:01 Resp 22 08/21/22 21:10 BP 173/80 H 08/21/22 21:01 Pulse Ox 93 08/21/22 21:10 PAWSS Have you Been Recently Intoxicated or Drunk Within the Last 30 days?: Yes Have you Ever Experienced Previous Episodes of Alcohol Withdrawal?: No Have you ever Experienced Withdrawal Seizures?: No Have you ever Experienced Delirium Tremens(DT)s?: No Have you ever undergone Alcohol Rehabilitation Treatment (i.e, inpt ot outpatient treatment programs)?: No Have you ever Experienced Blackouts?: No Have you ever Combined Alcohol with other Downers within the last 90 days?: No Have you ever Combined Alcohol with any other Substance of Abuse during the last 90 days?: No Positive Blood Alcohol level on Presentation? [PCS.BAL]: No Evidence of Increased Autonomic Activity (i.e. HR>120, tremor, sweating, agitation, nausea)?: No Result: 1 Time Spent Time spent with Patient: >75 minutes Time was spent: preparing to see the patient(eg.review tests), obtaining and/or reviewing separately otained hiistory, ordering medications,tests, procedures, referring, communicating with other health career development facilitator, indepentently interpreting results, counseling the patient and care coordination
--- NOTE | 2022-08-21 23:49 | NUR.NOTE ---
Nursing Note: Dr. Mustafa placed admitting orders for patients home medications. Patient stated she had already taken medications MEDICAL ATTENDANT. Called and spoke with Dr. Mustafa who came and spoke with the patient at bedside about medication timing. This RN instructed not to give duplicate medications.
--- NOTE | 2022-08-22 | DI.CT_ITS ---
Exam(s) CT ABDOMEN PELVIS W EXAM: CT ABDOMEN PELVIS W CLINICAL HISTORY: diarrhea, ?colitis. TECHNIQUE: Imaging Protocol: Axial computed tomography images with coronal and sagittal reformatted images were created and reviewed CONTRAST MATERIAL: Intravenous: Omnipaque 350 Contrast volume:100 ml Oral: yes / no COMPARISON: CT ABD PELVIS WO CONTRAST from 01/04/2017 FINDINGS: ABDOMEN: Lung Bases: Normal where visualized. Liver: Normal density. No measurable mass. Gallbladder and biliary tract: No radiodense calculus or dilation. Pancreas: Normal density, no abnormal calcifications or inflammatory process. Spleen: Normal. Kidneys: Normal size, contour and axis. No radiodense stones or obstructive uropathy. Renal cysts. No suspicious masses seen. Adrenal glands: No masses seen. Abdominal Aorta: Abdominal portion non-dilated. Atherosclerotic changes. Soft tissues: Unremarkable. PELVIS: Bladder: No gross wall thickening. No calculi.No focal mass. Bowel: Descending and sigmoid colon are collapsed intent contained a small amount of administered con trast material. No findings to suggest colitis. No obstruction. No bowel wall thickening. Appendi x normal. Peritoneal cavity: No ascites, collection or mesenteric inflammatory response. Bones: Degenerative changes. Reproductive organs: Status post hysterectomy. Lymph nodes: Unremarkable. Impression: No acute abnormality in the abdomen or pelvis. No findings to suggest colitis. RADIATION DOSE DELIVERED: 776.74mGy.cm Total DLP DATA REPOSITORY: All CT scans at this facility are submitted to the National Radiology Data Registry (NRDR) Dose Index Registry (DIR) with the [employer] (ACR). RADIATION OPTIMIZATION: All CT scans at this facility use at least one of these dose optimization te chniques: automated exposure control; mA and/or kV adjustment per patient size (includes targeted exa ms where dose is matched to clinical indication); or iterative reconstruction.
[2022-08-22 00:11] LABS: TSH (W/Ref FT4) 4.38 uIU/mL (0.36-3.74)
[2022-08-22 00:12] VITALS: PULSE 65
[2022-08-22] MEDS: LORazepam 1 MG TAB PO/SL (00:13)
[2022-08-22 00:29] LABS: FREE T4 1.57 ng/dL (0.76-1.46)
[2022-08-22 01:39] LABS: *AMPHETAMINES SCREEN URINE Negative (Negative); *BARBITURATES SCREEN URINE Negative (Negative); *BENZODIAZEPINES SCREEN URINE Negative (Negative); Cannabinoids THC Positive (Negative); Cocaine Screen,Urine Negative (Negative); METHADONE URINE SCREEN Negative (Negative); OPIATES URINE SCREEN Negative (Negative)
[2022-08-22 01:52] LABS: Tricyclic Antidepressants Negative (Negative)
[2022-08-22 03:54] VITALS: BP 152/82; PULSE 62; RESP 16; TEMP 36; O2SAT 97
[2022-08-22 07:16] LABS: HCT 34.3 % (36.0-46.0); HGB 11.6 g/dL (11.2-15.7); MCH 30.2 pg (27.0-33.0); MCHC 33.8 % (32.0-36.0); MCV 89 fL (80-95); MPV 11.2 fL (8.0-11.0); Platelet Count 237 10^3/uL (130-400); RBC 3.84 10^6/uL (3.93-5.22); RDW 13.9 % (11.7-14.6)
[2022-08-22 07:33] LABS: Lab Add On Test DONE
[2022-08-22 07:35] LABS: Prothrombin Time 10.4 sec (9.3-11.0)
[2022-08-22 07:39] LABS: ALT 24 U/L (14-59); AST 15 U/L (15-37); Albumin 3.3 g/dL (3.4-5.0); Alkaline Phosphatase 67 U/L (46-116); Anion Gap 11.3 mmol/L (3-11); BUN 7 mg/dL (7-18); C-Reactive Protein 0.37 mg/dL (0.0-0.3); CO2 22.7 mmol/L (21.0-32.0); CREATININE 1.1 mg/dL (0.55-1.02); Calcium 8.5 mg/dL (8.5-10.1); Chloride 107 mmol/L (98-107); Estimated GFR 53.72 (mL/min/1.73m2); Glucose 111 mg/dL (74-106); Magnesium 1.9 mg/dL (1.8-2.4); PHOSPHORUS 2.5 mg/dL (2.6-4.7); Sodium 141 mmol/L (136-145); Total Protein 6.3 g/dL (6.4-8.2)
[2022-08-22 07:42] LABS: Potassium 2.9 mmol/L (3.5-5.1)
[2022-08-22 07:45] VITALS: BP 176/86; PULSE 67; RESP 19; TEMP 37.2; O2SAT 98
[2022-08-22] MEDS: Cholecalciferol (Vitamin D3) 1,000 UNIT TAB 3000 UNITS PO (07:46)
[2022-08-22] MEDS: Breeza Beverage 473 ML BTL PO ×2 (07:46→07:47)
[2022-08-22] MEDS: Potassium Chloride 20 MEQ TABCR PO ×2 (07:47→10:11)
[2022-08-22] MEDS: Folic Acid 1 MG TAB PO (07:47)
[2022-08-22] MEDS: Omega-3 Fatty Acids 1000 MG CAP PO (07:47)
[2022-08-22] MEDS: Multivitamin TAB 1 TAB PO (07:47)
[2022-08-22] MEDS: Sucralfate 1 GM TAB PO (07:47)
[2022-08-22] MEDS: Losartan 50 MG TAB 100 MG PO (07:47)
[2022-08-22] MEDS: Pantoprazole 40 MG TABCR PO (07:47)
[2022-08-22] MEDS: Thiamine 100 MG TAB PO (07:47)
[2022-08-22] MEDS: amLODIPine 5 MG TAB PO (07:47)
[2022-08-22] MEDS: Omnipaque 350 MG/ML 50 ML BTL IJ (07:48)
--- NOTE | 2022-08-22 07:52 | INITIAL_ITS ---
Date of service: 08/22/22 Time of Service: 07:52 Care Management Initial Assmt Initial Assessment REASON FOR HOSPITALIZATION:: Gastroenteritis, Hematochezia, hypokalemia PREVIOUS FUNCTIONAL STATUS/SOCIAL/FAMILY SUPPORTS:: Alona resides at the [facility] in [place], [place], she is independent at baseline, and reports supportive friends and family. CURRENT FUNCTIONAL STATUS:: Prepared for discharge. ADVANCE DIRECTIVES:: Agent: Letty Good, Alternate: Elizabeth Fernandez, other: Iva Anderson Has patient been provided with info about the portal/API?: Yes Did the patient sign up for the portal?: Yes CODE STATUS:: Full Code INSURANCE COVERAGE / FINANCIAL ISSUES:: [facility] PRIMARY CARE PHYSICIAN:: Jessica Hare POTENTIAL DISCHARGE NEEDS:: Evaluation for increased services, follow up appointments. PATIENT/FAMILY EDUCATION NEEDS:: Review discharge instructions, discuss Ask Me Three. ANTICIPATED BARRIERS TO DISCHARGE:: None identified at this time. TRANSPORTATION:: Via private vehicle with a friend. PLAN:: Alona will return home when ready per MD. She will follow up with her PCP and plan of care as prescribed. She will have new orders for home health PT through [facility]. She will transport via private vehicle with a friend. [facility] All Active Problems (Updated 08/21/22 @ 23:37 by David Mustafa) H/O Clostridium difficile infection (Acute) Gastroenteritis (Acute) Alcoholic liver disease (Chronic) Hematochezia (Acute) Diarrhea (Acute) Hypomagnesemia (Acute) Blood in the stool (Acute) Hypokalemia (Acute) Restless leg syndrome (Acute) Insomnia (Acute) Gastroesophageal reflux disease (Acute) Alcohol use disorder, moderate, in early remission (Chronic 11/01/16) Cerebrovascular accident (CVA) (Chronic 11/18/12) residual tingling on right tn right but no weakness tell us that the residual headaches tingling Depressive disorder (Acute) Osteoarthritis (Acute) Gastritis and duodenitis (Acute) Hypertension (Acute) Medical History adult child of alcoholic parents Anxiety adult child of alcoholic Arthritis of first MTP joint Clostridium difficile colitis Elevated liver function tests normal in 2020 Family estrangement Goiter (12/04/12) NORMAL THYROID FUNCTION History of anxiety disorder Insomnia (08/22/16) uses otc Insomnia due to alcohol NSAID induced gastritis Peptic ulcer disease Right renal mass cyst CT 2017- no f/u needed Screening for colon cancer declines screening Surgical History Arthroplasty of knee (~1989) LEFT Dilation and curettage History of arthroscopy of knee Hysterectomy, Laproscopic HAS OVARIES Status post dilation and curettage Status post laparoscopic hysterectomy Family History Mother Diabetes Father Neoplasm Social History Smoking/Tobacco Use Status: Former Tobacco Use tobacco type: cigarettes Second Hand Exposure: Yes Smoking risk assessment performed?: Yes Alcohol Intake: current Alcohol Intake frequency: a few times a week Alcohol type: beer Drug use: Occasionally Substance use type: marijuana Caregiver/Support person: No Do you need help understanding health information?: Rarely Pets and animals: No Sexually active: No Do you think of yourself as: straight/heterosexual Current gender identity: female What is your relationship status?: How often do you talk on the phone with friends or family?: three or more times per week How often do you get together with friends or relatives?: once per week How often do you attend jew or rastafari services?: 1-3 times per year Do you belong to any clubs or organized social groups?: no Panel score (0-1 are the most socially isolated patients): 1 Shira/Shinto: None Special shira needs: No Seatbelt use: always Drive intox or ride w/intox straddle bug driver: No Do you feel safe at home: Yes Do you feel safe in your relationship?: Yes
[2022-08-22 08:31] LABS: C Diff PCR Negative (Negative)
[2022-08-22 09:17] LABS: Source Nasal/Nares
[2022-08-22] MEDS: Normal Saline - Diluent 50 ML VIAL IJ (09:32)
[2022-08-22] MEDS: Omnipaque 350 MG/ML 500 ML BTL-Imaging package 100 ML IJ (09:33)
[2022-08-22 10:01] LABS: COVID-19 PCR Negative (Negative)
[2022-08-22] MEDS: Normal Saline Flush 10 ML SYR IVP (10:12)
[2022-08-22] MEDS: POTASSIUM CHLORIDE 20 MEQ/100 ML BAG 50 MEQ IVPB ×2 (10:12→12:16)
--- NOTE | 2022-08-22 10:40 | CHAPLAIN ---
Alona was up in the chair when I visited. She said she's feeling better this morning and asked for fresh water. Alona lives at the [facility] and will be returning there. She was pleasant and easily engaged in a conversation.
--- NOTE | 2022-08-22 10:57 | PT.INIE ---
Date of service: 08/22/22 Time of Service: 10:25 PT Notes Visit Reasons: Gastroeneteritis,Hematochezia,Hypokalemia, Physical Therapy Inpatient Initial Evaluation Date: 08/22/2022 Referring Doctor: David Mustafa MD PT Orders: PT CONSULT: Safety consult for D/C Precautions: Fall. Standard. Activity as tolerated. Patient Profile/Admitting Diagnosis: Alona is a 72-year-old female who presented to the ED on 08/21/2022 due to a weeklong bloody diarrhea. Patient is admitted to [facility] for management of gastroenteritis, hematochezia, hypomagnesemia, hypokalemia kalemia, history of C. difficile, EtOH disorder EtOH liver disease, GERD, and previous CVA. PT referral was made for safety consult for D/C related to previous stroke PMHX: All Active Problems?(Updated 08/21/22 @ 23:37 by David Mustafa) H/O Clostridium difficile infection (Acute) Gastroenteritis (Acute) Alcoholic liver disease (Chronic) Hematochezia (Acute) Diarrhea (Acute) Hypomagnesemia (Acute) Blood in the stool (Acute) Hypokalemia (Acute) Restless leg syndrome (Acute) Insomnia (Acute) Gastroesophageal reflux disease (Acute) Alcohol use disorder, moderate, in early remission (Chronic 11/01/16) Cerebrovascular accident (CVA) (Chronic 11/18/12) residual tingling on right tn right but no weakness tell us that the residual headaches tinglingDepressive disorder (Acute) Osteoarthritis (Acute) Gastritis and duodenitis (Acute) Hypertension (Acute) Medical History? adult child of alcoholic parents Anxiety Arthritis of first MTP joint Clostridium difficile colitis Elevated liver function tests normal in 2020 Family estrangement Goiter (12/04/12) NORMAL THYROID FUNCTION History of anxiety disorder Insomnia (12/05/15) uses otcInsomnia due to alcohol NSAID induced gastritis Peptic ulcer disease Right renal mass cyst CT 2017- no f/u needed Screening for colon cancer declines screening Surgical History? Arthroplasty of knee (~1989) LEFT Dilation and curettage History of arthroscopy of knee Hysterectomy, Laproscopic HAS OVARIES Status post dilation and curettage Status post laparoscopic hysterectomy Social History/Home Situation: Lives at [facility] independent with all aspects of ADLs prior to admission. Uses single-point cane occasionally. Still drives. Equipment Owned/DME: [facility] Subjective: Feels much better than she did on admission. Strength is almost at baseline. Complaints of new onset leg shaking. Reports pain at the IV site where she is getting IV potassium. Objective: General Observation: Seated on bedside recliner. IV through the left UE Mental Status: Alert and oriented as to person, place, time, and purpose. Able to pay attention, focus, and respond appropriately. Pain: Minimal pain at IV site Vital Signs: Closely monitored by nursing staff ROM:4 Right Upper Extremity: Shoulder Flexion WFL. Shoulder abduction WFL. Elbow flexion WFL. Wrist flexion WFL. Functional opening and closing of hand WFL. Left Upper Extremity: Shoulder Flexion WFL. Shoulder abduction WFL. Elbow flexion WFL. Wrist flexion WFL. Functional opening and closing of hand WFL. Right Lower Extremity: Hip flexion WFL. Hip abduction WFL. Knee flexion WFL. Ankle dorsiflexion WFL. Ankle plantarflexion WFL. Left Lower Extremity: Hip flexion WFL. Hip abduction WFL. Knee flexion WFL. Ankle dorsiflexion WFL. Ankle plantarflexion WFL. Strength: Right Upper Extremity: Shoulder flexors 4/5. Shoulder abductors 4/5. Elbow flexors 4/5. Elbow extensors 4/5. 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 Left Upper Extremity: Shoulder flexors 4/5. Shoulder abductors 4/5. Elbow flexors 4/5. Elbow extensors 4/5. 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 Right Lower Extremity: Hip flexors 4/5. Hip abductors 4/5. Knee flexors 4/5. Knee extensors 4/5. Ankle dorsiflexors 4/5. Ankle plantarflexors 4/5. Left Lower Extremity: Hip flexors 4/5. Hip abductors 4/5. Knee flexors 4/5. Knee extensors 4/5. Ankle dorsiflexors 4/5. Ankle plantarflexors 4/5. Bed Mobility/Transfers: Sit to stand standby assist with FWW Stand to sit standby assist with FWW Bed to toilet seat with standby assist with FWW Toilet seat to bed with standby assist with FWW Gait: Instructed patient with level surface ambulation of 250 feet requiring stand by assist and wheelchair follow. Leah decreased. Step height decreased. Step length decreased. Balance: Static Sitting: Normal Dynamic Sitting: Normal Static Standing: Fair Dynamic Standing: Fair Special Tests: Mobility Limitations Standardized Measure [facility] AM-PAC 6 clicks Basic Mobility Inpatient Short Form: Raw Score: 20 CMS Score: 36% deficit Informed Consent/Education: Patient was instructed in purpose of PT consult and plan of care. Agreeable to proceed with established PT POC to achieve personal goals. Assessment: Needed to use front-wheeled walker for today's ambulation due to new onset bilateral lower extremity shaking which patient believes may be due to anxiety. We will assess safety of use of single-point cane for the afternoon session. Watery stool x 1 during evaluation. Patient presents with clinical signs and symptoms consistent with current/admitting diagnoses that have resulted to mobility limitations, gait instability, generalized weakness, and overall ADL decline as demonstrated by the following impairment level findings: 1. Decreased strength to B UE/LE major muscle groups 2. Impaired sitting/standing balance 3. Impaired activity tolerance Impairments are contributing to the following functional limitations: 1. Difficulty with ambulation without assistive device 2. Increased completion time for mobility ADL performance 4. Increased risk for falls 5. Difficulty with managing steps alone safely Patient is assessed as a [id number] moderate complexity based on the following: History: 72-year-old female with past medical history as indicated above Examination: Demonstrable impairment in strength, balance, and mobility level with underlying impairments and functional limitations as exhibited above as well as deficit score of 36%% utilizing the [facility] Mobility Inpatient Short Form Presentation: Evolving Decision Makin moderate complexity Goals: Goals X1 week 1. Supine-Sit independent 2. Sit-Supine independent 3. Sit-Stand independent 4. Stand-Sit independent with no AD 5. Bed-Chair independent with no AD 6. Chair-Bed independent with no AD 7. Independent gait on level surface with use of no AD for at least 300 feet without report of pain nor dyspnea 8. Independent with home exercise program 9. Good static and dynamic standing balance/tolerance Plan of Care/Treatment Plan: 1-2x/day, 7 days/week x 1 week. Plan of care has been reviewed with the RELATIONS DIRECTOR providing the service under Physical Therapy direction. Initiate Physical Therapy intervention for pain management as needed, strengthening, bed mobility, transfers, gait, stairs, balance training, and use of assistive device. DISCHARGE RECOMMENDATIONS: [] Home with no services [] [X] Home with services. Patient will benefit from home health PT services in order to progress mobility level using least restrictive assistive ambulatory device, assess home safety, identify additional equipment needs, and establish a functional maintenance program that will increase ability of patient to remain at home. [] Home with outpatient PT [] [] SNF for continued rehabilitation [] [] [facility] [] [] SNF versus LTC based on ability to participate and progress [] TREATMENT CODE/TIME: 9716 2 x 20 minutes beginning at 10:25 AM. Thank you for the opportunity to participate in the care of this patient. Mayela Flannery PT, DPT, CLT [facility] [place], [place]
[2022-08-22 11:25] VITALS: BP 158/69; PULSE 64; RESP 16; TEMP 37.2; O2SAT 97
--- NOTE | 2022-08-22 13:54 | CMDISCH_ITS ---
Date of service: 08/22/22 Time of Service: 13:54 LACE Index Scoring Tool Questions: Length of Stay (in days): 1 Was the patient admitted via the E.D.?: Yes Comorbidities: Cerebrovascular Disease and Liver or Renal Disease E.D. Visits: 0 Answers: Total Score: 9 Risk of Readmission: Low Risk Care Management Discharge Plan Reason for Hospitalization: Gastroenteritis, Hematochezia, hypokalemia Discharge Plan: Alona will return home when ready per MD. She will follow up with her PCP and plan of care as prescribed. She will have new orders for home health PT through [facility]. She will transport via private vehicle with a friend. Patient/Family Education Needs: Review discharge instructions, discuss Ask Me Three. Services Needed at Discharge: Home Health Care Services (PT)
--- NOTE | 2022-08-22 14:27 | W.PM.DS.N ---
Date of service: 08/22/22 Time of Service: 14:28 DS: Diagnosis Discharge Diagnosis (1) Gastroenteritis: Status: Acute (2) Hematochezia: Status: Acute (3) Hypomagnesemia: Status: Acute (4) Hypokalemia: Status: Acute (5) H/O Clostridium difficile infection: Status: Acute (6) Alcohol use disorder, moderate, in early remission: Status: Chronic (7) Alcoholic liver disease: Status: Chronic (8) Cerebrovascular accident (CVA): Status: Chronic (9) Gastroesophageal reflux disease: Status: Acute (10) Anxiety: Discharge Plan Disposition Patient Disposition: Home W/Home Health Services Condition: Stable Discharge Details Reason For Visit: Gastroeneteritis,Hematochezia,Hypokalemia, Admit Date/Time: 08/21/22 21:46 Admit Provider: David Mustafa Attending Provider: David Mustafa [facility]: This is a 72-year-old female patient with history of C. difficile colitis anxiety GERD gastritis and duodenitis who presented to the emergency department with several days of reported bloody diarrhea. She states her p.o. intake has been poor she vomited once the day before but no further vomiting. She does have some generalized abdominal discomfort but no significant abdominal pain. She feels the symptoms are similar to her last episode of C. difficile. Her work-up in the emergency department does show hypokalemia hypomagnesemia and dehydration. She was given IV hydration and electrolyte replacement. Rectal exam showed no stool in vault and stool was negative for occult blood. She initially was not able to produce a stool sample but did this was negative for C. difficile lactoferrin bacterial cultures were pending but ultimately negative for Salmonella Shigella Campylobacter. Her symptoms improved overnight after receiving IV hydration and electrolyte replacement. Her diet was advanced she felt at her baseline and was requesting discharge to home. She will be discharged to home with home health services discharge discussed with Dr. Choi there are no changes in her medication she can use loperamide if needed for diarrhea Home Meds and New Rx's Prescriptions: New loperamide 2 mg Capsule 2 mg PO Q4H PRN PRNQty: 14 0RF Continued Unisom (doxylamine) 25 mg tablet 25 mg PO QHS PRN losartan 100 mg tablet 100 mg PO DAILY Qty: 30 3RF cholecalciferol (vitamin D3) 75 mcg (3,000 unit) tablet 3,000 unit PO DAILY Qty: 90 4RF omega-3 fatty acids-fish oil 300-1,000 mg capsule 1 cap PO DAILY Qty: 90 3RF pantoprazole 40 mg tablet,delayed release (DR/EC) 40 mg PO DAILY Qty: 90 3RF potassium chloride 20 mEq tablet extended release 20 meq PO DAILY Qty: 90 4RF simvastatin 10 mg tablet 10 mg PO HS Qty: 90 4RF thiamine mononitrate (vit B1) 100 mg tablet 100 mg PO DAILY Qty: 90 4RF sucralfate 1 gram tablet 1 g PO BID Qty: 180 4RF vitamin B complex Capsule 1 cap PO DAILY Qty: 90 3RF amlodipine 5 mg tablet 5 mg PO DAILY Qty: 90 4RF fluoxetine 20 mg capsule 20 mg PO DAILY Qty: 90 4RF Rx Instructions: for a total of 60 mg fluoxetine 40 mg capsule 40 mg PO DAILY Qty: 90 4RF quetiapine 50 mg tablet 50 mg PO DAILY Qty: 90 4RF trazodone 100 mg tablet 100 mg PO QHS PRN (Reason: sleep) Qty: 90 4RF No Action chlordiazepoxide HCl 25 mg capsule 25 mg PO Q6H PRN (Reason: anxiety) Qty: 20 0RF Rx Instructions: May take 50 mg for the first dose Discharge Instructions Instructions: Gastroenteritis (DC) Additional Instructions: clear liquids, advance as tolerated. increase fluid intake to drink at least 6-8 glasses of water daily to stay well hydrated. avoid alcohol. Stand Alone Forms: Nursing Discharge Form Referrals: Jessica Hare NP [Primary Care Provider] - 08/30/22 10:40 am Activity:: Activity as Tolerated Equipment/Supplies:: No Equipment Needed Diet:: As Tolerated Discharge Orders Discharge Orders: Discharge Order (Routine); Ordered 08/22/22 Ordered By: Sherry Aguilar Discharge Data Discharge Date/Time-TO BE ENTERED AT DEPARTURE: 08/22/22 16:24 DS: Summary Time Spent with Patient providing and/or coordinating discharge services: Greater than 30 minutes Status at Discharge Functional status at discharge: uses cane/walker Overall status at discharge: patient is progressing back to baseline Mental Status: mental status grossly normal Speech and Movement: speech and movement normal Mood: anxious mood Affect: anxious affect Exam Const General: cooperative, in distress moderate (Anxiety) and ill appearing chronically Nutritional Appearance: average body habitus Orientation: alert, awake and oriented x3 HENMT Head: normal to inspection, normocephalic and atraumatic Mouth: moist mucous membranes abnormal (Slightly dry no exudate) Resp Effort & Inspection: normal respiratory effort Cardio Rate: regular rate Rhythm: regular rhythm GI Inspection: normal to inspection and non-distended Palpation: soft, not firm and no guarding Rectal Exam - female: visual inspection normal, normal sphincter tone, heme negative stool and other (No stool in rectal vault) Skin General skin exam: no rashes or lesions noted Psych Appearance: disheveled Mental Status: mental status grossly normal Speech and Movement: speech and movement normal Mood: anxious mood Affect: anxious affect Attitude: cooperative Insight: fair Judgment: fair DS: Data Vitals/I&O Vitals and I&O: Vital Signs Temperature 37.2 C 08/22/22 11:25 Temperature Source Tympanic 08/22/22 11:25 Pulse 64 08/22/22 11:25 Pulse Rhythm Regular 08/22/22 07:45 Pulse 57 L 08/21/22 23:01 Respiratory Rate 16 08/22/22 11:25 Respiratory Effort Normal, Non-Labored 08/22/22 07:45 Respiratory Depth Normal 08/22/22 07:45 Respiratory Pattern Normal 08/22/22 07:45 Blood Pressure 158/69 H 08/22/22 11:25 Blood Pressure Mean 103 08/21/22 23:00 Blood Pressure Position Sitting 08/21/22 16:52 Pulse Oximetry 97 08/22/22 11:25 Oxygen Delivery Method Room Air 08/22/22 11:25 Oxygen Flow Rate 0 08/22/22 11:25 Pain Level 0 08/22/22 11:25 Intake & Output 08/21/22 08/22/22 08/22/22 23:59 11:59 23:59 Intake Total 1400 / 1400 50 / 150 100 / 150 Balance 1400 / 1400 50 / 150 100 / 150 Weight 73.482 kg Intake: IV 1400 / 1400 50 / 150 100 / 150 Other: Stool Size Moderate Moderate Stool Characteristics Soft Liquid Emesis Description None Data Completed and Pending Labs on day of discharge: Labs from last 24 hours 08/22/22 08/22/22 08/22/22 09:10 06:40 06:40 WBC RBC Hgb Hct MCV MCH MCHC RDW Plt Count MPV Immature Gran % Neutrophils % Band Neutrophils % Lymphocytes % Atypical Lymphs % Monocytes % Eosinophils % Basophils % Metamyelocytes % Myelocytes % Promyelocytes % Other Cells % Nucleated RBC % Absolute Neutrophils Absolute Lymphocytes Absolute Monocytes Absolute Eosinophils Absolute Basophils RBC Morphology Polychromasia Hypochromasia Poikilocytosis Basophilic Stippling Anisocytosis Microcytosis Macrocytosis Spherocytes Tear Drop Cells Ovalocytes Stomatocytes [place] Bodies Cas Cells/Echinocytes Acanthocytes (Spur) Schistocytes PT INR VBG Lactate Sodium Potassium Chloride Carbon Dioxide Anion Gap BUN Creatinine Est GFR (CKD-EPI 2020) Glucose Calcium Phosphorus Magnesium Total Bilirubin AST ALT Alkaline Phosphatase C-Reactive Protein Total Protein Albumin TSH Free T4 Urine Color Urine Clarity Urine pH Ur Specific [place] Urine Protein Urine Ketones Urine Blood Urine Nitrite Urine Bilirubin Urine Urobilinogen Ur Leukocyte Esterase Urine RBC Urine WBC Ur Epithelial Cells Urine Crystals Urine Bacteria Urine Casts Urine Mucus Ur Culture Indicated? Urine Glucose Stool Campylobacter PCR Pending Stl C.difficile Tox PCR Negative Stool Salmonella PCR Pending Stool Shigella PCR Pending Urine Opiates Screen Urine Methadone Screen Ur Barbiturates Screen Ur Tricyclics Screen Ur Amphetamines Screen U Benzodiazepines Scrn Urine Cocaine Screen Ur THC Screen Ethyl Alcohol COVID-19 Source Nasal/Nares SARS-CoV-2 (PCR) Negative Shiga Toxin (PCR) Pending Add-On Test Request 08/22/22 08/22/22 08/22/22 06:20 06:20 06:20 WBC 9.50 RBC 3.84 L Hgb 11.6 D Hct 34.3 L MCV 89 MCH 30.2 MCHC 33.8 RDW 13.9 Plt Count 237 MPV 11.2 H Immature Gran % Neutrophils % Band Neutrophils % Lymphocytes % Atypical Lymphs % Monocytes % Eosinophils % Basophils % Metamyelocytes % Myelocytes % Promyelocytes % Other Cells % Nucleated RBC % Absolute Neutrophils Absolute Lymphocytes Absolute Monocytes Absolute Eosinophils Absolute Basophils RBC Morphology Polychromasia Hypochromasia Poikilocytosis Basophilic Stippling Anisocytosis Microcytosis Macrocytosis Spherocytes Tear Drop Cells Ovalocytes Stomatocytes [place] Bodies [place] Cells/Echinocytes Acanthocytes (Spur) Schistocytes PT 10.4 INR 1.0 VBG Lactate Sodium Potassium Chloride Carbon Dioxide Anion Gap BUN Creatinine Est GFR (CKD-EPI 2020) Glucose Calcium Phosphorus Magnesium Total Bilirubin AST ALT Alkaline Phosphatase C-Reactive Protein Total Protein Albumin TSH Free T4 Urine Color Urine Clarity Urine pH Ur Specific [place] Urine Protein Urine Ketones Urine Blood Urine Nitrite Urine Bilirubin Urine Urobilinogen Ur Leukocyte Esterase Urine RBC Urine WBC Ur Epithelial Cells Urine Crystals Urine Bacteria Urine Casts Urine Mucus Ur Culture Indicated? Urine Glucose Stool Campylobacter PCR Stl C.difficile Tox PCR Stool Salmonella PCR Stool Shigella PCR Urine Opiates Screen Urine Methadone Screen Ur Barbiturates Screen Ur Tricyclics Screen Ur Amphetamines Screen U Benzodiazepines Scrn Urine Cocaine Screen Ur THC Screen Ethyl Alcohol COVID-19 Source SARS-CoV-2 (PCR) Shiga Toxin (PCR) Add-On Test Request DONE 08/22/22 08/22/22 08/21/22 06:20 05:35 21:07 WBC RBC Hgb Hct MCV MCH MCHC RDW Plt Count MPV Immature Gran % Neutrophils % Band Neutrophils % Lymphocytes % Atypical Lymphs % Monocytes % Eosinophils % Basophils % Metamyelocytes % Myelocytes % Promyelocytes % Other Cells % Nucleated RBC % Absolute Neutrophils Absolute Lymphocytes Absolute Monocytes Absolute Eosinophils Absolute Basophils RBC Morphology Polychromasia Hypochromasia Poikilocytosis Basophilic Stippling Anisocytosis Microcytosis Macrocytosis Spherocytes Tear Drop Cells Ovalocytes Stomatocytes [place] Bodies [place] Cells/Echinocytes Acanthocytes (Spur) Schistocytes PT 10.3 INR 1.0 VBG Lactate Sodium 141 Potassium 2.9 L Chloride 107 Carbon Dioxide 22.7 Anion Gap 11.3 H BUN 7 Creatinine 1.1 H Est GFR (CKD-EPI 2020) 53.72 Glucose 111 H Calcium 8.5 Phosphorus 2.5 L Cancelled Magnesium 1.9 Total Bilirubin 2.0 H AST 15 ALT 24 Alkaline Phosphatase 67 C-Reactive Protein 0.37 H Total Protein 6.3 L Albumin 3.3 L TSH Free T4 Urine Color Urine Clarity Urine pH Ur Specific [place] Urine Protein Urine Ketones Urine Blood Urine Nitrite Urine Bilirubin Urine Urobilinogen Ur Leukocyte Esterase Urine RBC Urine WBC Ur Epithelial Cells Urine Crystals Urine Bacteria Urine Casts Urine Mucus Ur Culture Indicated? Urine Glucose Stool Campylobacter PCR Stl C.difficile Tox PCR Stool Salmonella PCR Stool Shigella PCR Urine Opiates Screen Urine Methadone Screen Ur Barbiturates Screen Ur Tricyclics Screen Ur Amphetamines Screen U Benzodiazepines Scrn Urine Cocaine Screen Ur THC Screen Ethyl Alcohol COVID-19 Source SARS-CoV-2 (PCR) Shiga Toxin (PCR) Add-On Test Request 08/21/22 08/21/22 08/21/22 21:07 20:49 19:35 WBC RBC Hgb Hct MCV MCH MCHC RDW Plt Count MPV Immature Gran % Neutrophils % Band Neutrophils % Lymphocytes % Atypical Lymphs % Monocytes % Eosinophils % Basophils % Metamyelocytes % Myelocytes % Promyelocytes % Other Cells % Nucleated RBC % Absolute Neutrophils Absolute Lymphocytes Absolute Monocytes Absolute Eosinophils Absolute Basophils RBC Morphology Polychromasia Hypochromasia Poikilocytosis Basophilic Stippling Anisocytosis Microcytosis Macrocytosis Spherocytes Tear Drop Cells Ovalocytes Stomatocytes [place] Bodies [place] Cells/Echinocytes Acanthocytes (Spur) Schistocytes PT INR VBG Lactate Cancelled Sodium Potassium Chloride Carbon Dioxide Anion Gap BUN Creatinine Est GFR (CKD-EPI 2020) Glucose Calcium Phosphorus Magnesium Total Bilirubin AST ALT Alkaline Phosphatase C-Reactive Protein Total Protein Albumin TSH Free T4 Urine Color Urine Clarity Urine pH Ur Specific [place] Urine Protein Urine Ketones Urine Blood Urine Nitrite Urine Bilirubin Urine Urobilinogen Ur Leukocyte Esterase Urine RBC Urine WBC Ur Epithelial Cells Urine Crystals Urine Bacteria Urine Casts Urine Mucus Ur Culture Indicated? Urine Glucose Stool Campylobacter PCR Stl C.difficile Tox PCR Stool Salmonella PCR Stool Shigella PCR Urine Opiates Screen Negative Urine Methadone Screen Negative Ur Barbiturates Screen Negative Ur Tricyclics Screen Negative Ur Amphetamines Screen Negative U Benzodiazepines Scrn Negative Urine Cocaine Screen Negative Ur THC Screen Positive A Ethyl Alcohol < 3.0 COVID-19 Source SARS-CoV-2 (PCR) Shiga Toxin (PCR) Add-On Test Request 08/21/22 08/21/22 08/21/22 19:35 17:10 17:10 WBC RBC Hgb Hct MCV MCH MCHC RDW Plt Count MPV Immature Gran % Neutrophils % Band Neutrophils % Lymphocytes % Atypical Lymphs % Monocytes % Eosinophils % Basophils % Metamyelocytes % Myelocytes % Promyelocytes % Other Cells % Nucleated RBC % Absolute Neutrophils Absolute Lymphocytes Absolute Monocytes Absolute Eosinophils Absolute Basophils RBC Morphology Polychromasia Hypochromasia Poikilocytosis Basophilic Stippling Anisocytosis Microcytosis Macrocytosis Spherocytes Tear Drop Cells Ovalocytes Stomatocytes [place] Bodies Cas Cells/Echinocytes Acanthocytes (Spur) Schistocytes PT 10.2 INR 1.0 VBG Lactate Sodium Potassium Chloride Carbon Dioxide Anion Gap BUN Creatinine Est GFR (CKD-EPI 2020) Glucose Calcium Phosphorus Magnesium Total Bilirubin AST ALT Alkaline Phosphatase C-Reactive Protein Total Protein Albumin TSH 4.38 H Free T4 1.57 H Urine Color Yellow Urine Clarity Clear Urine pH 6.0 Ur Specific [place] 1.020 Urine Protein Trace H Urine Ketones Trace H Urine Blood Negative Urine Nitrite Negative Urine Bilirubin Negative Urine Urobilinogen 1.0 H Ur Leukocyte Esterase Negative Urine RBC Negative Urine WBC Negative Ur Epithelial Cells Moderate Urine Crystals Negative Urine Bacteria Few Urine Casts 0-2 Hyaline Urine Mucus Moderate Ur Culture Indicated? No/Sq. Contamination Urine Glucose Negative Stool Campylobacter PCR Stl C.difficile Tox PCR Stool Salmonella PCR Stool Shigella PCR Urine Opiates Screen Urine Methadone Screen Ur Barbiturates Screen Ur Tricyclics Screen Ur Amphetamines Screen U Benzodiazepines Scrn Urine Cocaine Screen Ur THC Screen Ethyl Alcohol COVID-19 Source SARS-CoV-2 (PCR) Shiga Toxin (PCR) Add-On Test Request 08/21/22 08/21/22 08/21/22 17:10 17:10 16:20 WBC 13.30 H Cancelled RBC 4.67 Cancelled Hgb 14.1 Cancelled Hct 41.5 Cancelled MCV 89 Cancelled MCH 30.2 Cancelled MCHC 34.0 Cancelled RDW 13.8 Cancelled Plt Count 314 Cancelled MPV 11.1 H Cancelled Immature Gran % 0.6 Cancelled Neutrophils % 85.1 Cancelled Band Neutrophils % Cancelled Lymphocytes % 8.0 Cancelled Atypical Lymphs % Cancelled Monocytes % 5.8 Cancelled Eosinophils % 0.0 Cancelled Basophils % 0.5 Cancelled Metamyelocytes % Cancelled Myelocytes % Cancelled Promyelocytes % Cancelled Other Cells % Cancelled Nucleated RBC % 0.0 Cancelled Absolute Neutrophils 11.32 H Cancelled Absolute Lymphocytes 1.06 L Cancelled Absolute Monocytes 0.77 Cancelled Absolute Eosinophils 0.00 Cancelled Absolute Basophils 0.07 Cancelled RBC Morphology Cancelled Polychromasia Cancelled Hypochromasia Cancelled Poikilocytosis Cancelled Basophilic Stippling Cancelled Anisocytosis Cancelled Microcytosis Cancelled Macrocytosis Cancelled Spherocytes Cancelled Tear Drop Cells Cancelled Ovalocytes Cancelled Stomatocytes Cancelled [place] Bodies Cancelled Cas Cells/Echinocytes Cancelled Acanthocytes (Spur) Cancelled Schistocytes Cancelled PT INR VBG Lactate Sodium 142 Potassium 2.8 L* Chloride 105 Carbon Dioxide 19.4 L Anion Gap 17.6 H BUN 10 Creatinine 1.4 H Est GFR (CKD-EPI 2020) 40.22 Glucose 141 H Calcium 10.1 Phosphorus Magnesium 1.5 L Total Bilirubin 2.1 H AST 20 ALT 29 Alkaline Phosphatase 85 C-Reactive Protein Total Protein 7.8 Albumin 4.3 TSH Free T4 Urine Color Urine Clarity Urine pH Ur Specific [place] Urine Protein Urine Ketones Urine Blood Urine Nitrite Urine Bilirubin Urine Urobilinogen Ur Leukocyte Esterase Urine RBC Urine WBC Ur Epithelial Cells Urine Crystals Urine Bacteria Urine Casts Urine Mucus Ur Culture Indicated? Urine Glucose Stool Campylobacter PCR Stl C.difficile Tox PCR Stool Salmonella PCR Stool Shigella PCR Urine Opiates Screen Urine Methadone Screen Ur Barbiturates Screen Ur Tricyclics Screen Ur Amphetamines Screen U Benzodiazepines Scrn Urine Cocaine Screen Ur THC Screen Ethyl Alcohol COVID-19 Source SARS-CoV-2 (PCR) Shiga Toxin (PCR) Add-On Test Request 08/21/22 16:20 WBC RBC Hgb Hct MCV MCH MCHC RDW Plt Count MPV Immature Gran % Neutrophils % Band Neutrophils % Lymphocytes % Atypical Lymphs % Monocytes % Eosinophils % Basophils % Metamyelocytes % Myelocytes % Promyelocytes % Other Cells % Nucleated RBC % Absolute Neutrophils Absolute Lymphocytes Absolute Monocytes Absolute Eosinophils Absolute Basophils RBC Morphology Polychromasia Hypochromasia Poikilocytosis Basophilic Stippling Anisocytosis Microcytosis Macrocytosis Spherocytes Tear Drop Cells Ovalocytes Stomatocytes [place] Bodies [place] Cells/Echinocytes Acanthocytes (Spur) Schistocytes PT INR VBG Lactate Sodium Cancelled Potassium Cancelled Chloride Cancelled Carbon Dioxide Cancelled Anion Gap Cancelled BUN Cancelled Creatinine Cancelled Est GFR (CKD-EPI 2020) Cancelled Glucose Cancelled Calcium Cancelled Phosphorus Magnesium Total Bilirubin Cancelled AST Cancelled ALT Cancelled Alkaline Phosphatase Cancelled C-Reactive Protein Total Protein Cancelled Albumin Cancelled TSH Free T4 Urine Color Urine Clarity Urine pH Ur Specific [place] Urine Protein Urine Ketones Urine Blood Urine Nitrite Urine Bilirubin Urine Urobilinogen Ur Leukocyte Esterase Urine RBC Urine WBC Ur Epithelial Cells Urine Crystals Urine Bacteria Urine Casts Urine Mucus Ur Culture Indicated? Urine Glucose Stool Campylobacter PCR Stl C.difficile Tox PCR Stool Salmonella PCR Stool Shigella PCR Urine Opiates Screen Urine Methadone Screen Ur Barbiturates Screen Ur Tricyclics Screen Ur Amphetamines Screen U Benzodiazepines Scrn Urine Cocaine Screen Ur THC Screen Ethyl Alcohol COVID-19 Source SARS-CoV-2 (PCR) Shiga Toxin (PCR) Add-On Test Request PFS All Active Problems (Updated 08/24/22 @ 11:03 by Eddie Rodriguez NP) Gastritis and duodenitis (Acute) Hypertension (Acute) Osteoarthritis (Acute) Depressive disorder (Acute) Cerebrovascular accident (CVA) (Chronic 11/18/12) residual tingling on right tn right but no weakness tell us that the residual headaches tingling Alcohol use disorder, moderate, in early remission (Chronic 11/01/16) Gastroesophageal reflux disease (Acute) Insomnia (Acute) Restless leg syndrome (Acute) Hypokalemia (Acute) Blood in the stool (Acute) Diarrhea (Acute) Hypomagnesemia (Acute) Hematochezia (Acute) Alcoholic liver disease (Chronic) Gastroenteritis (Acute) H/O Clostridium difficile infection (Acute) Alcohol withdrawal (Acute) Medical History adult child of alcoholic parents Anxiety adult child of alcoholic Arthritis of first MTP joint Clostridium difficile colitis Elevated liver function tests normal in 2020 Family estrangement Goiter (12/04/12) NORMAL THYROID FUNCTION History of anxiety disorder Insomnia (12/05/15) uses otc Insomnia due to alcohol NSAID induced gastritis Peptic ulcer disease Right renal mass cyst CT 2016- no f/u needed Screening for colon cancer declines screening Surgical History Arthroplasty of knee (~1989) LEFT Dilation and curettage History of arthroscopy of knee Hysterectomy, Laproscopic HAS OVARIES Status post dilation and curettage Status post laparoscopic hysterectomy Family History Mother Diabetes Father Neoplasm Social History Smoking/Tobacco Use Status: Former Tobacco Use tobacco type: cigarettes Second Hand Exposure: Yes Smoking risk assessment performed?: Yes Alcohol Intake: current Alcohol Intake frequency: a few times a week Alcohol type: beer Drug use: Occasionally Substance use type: marijuana Caregiver/Support person: No Do you need help understanding health information?: Rarely Pets and animals: No Sexually active: No Do you think of yourself as: straight/heterosexual Current gender identity: female What is your relationship status?: How often do you talk on the phone with friends or family?: three or more times per week How often do you get together with friends or relatives?: once per week How often do you attend jainism or scientologist services?: 1-3 times per year Do you belong to any clubs or organized social groups?: no Panel score (0-1 are the most socially isolated patients): 1 Shira/Druze: None Special shira needs: No Seatbelt use: always Drive intox or ride w/intox cab driver: No Do you feel safe at home: Yes Do you feel safe in your relationship?: Yes Time Spent with Patient Time Spent with Patient: 45-69 minutes Time was spent: preparing to see the patient(eg.review tests), obtaining and/or reviewing separately otained hiistory, ordering medications,tests, procedures, referring, communicating with other health rn progressive care, indepentently interpreting results and care coordination
[2022-08-22] MEDS: FLUoxetine 20 MG CAP 60 MG PO (14:50)
--- NOTE | 2022-08-23 10:53 | PDOC.HHF2F ---
Home Health Referral Home Health Orders Clinical synopsis of why skilled professionals are needed: weakness following GI illness, right sided weakness from previous CVA Medical diagnosis necessitation home health referral: gastroenteritis Registered Nurse: Check all that apply Instruct on new or changed medication(s)/assess compliance: Ordered (assess compliance) Assess for exacerbation of medical condition, instruct patient/caregivers on signs and symptoms to report for early detection: Ordered Physical Therapist: Check all that apply Increase strength & endurance for safe mobility at home: Ordered To design/establish home maintenance program: Ordered Fall reduction therapy program for patient with history of frequent falls: Ordered Home safety evaluation and teaching/gait training including stair management (if applicable): Ordered Occupational Therapist: Evaluate and treat for patient unable to perform ADL/IADL/self-care: Ordered Upper extremity strengthening, range and motion: Ordered Home Bound Status Requires the aid of supportive device (check all that apply): Walker Describe why leaving home would require a considerable and taxing effort: Requires frequent rest periods Encounter Date and Reason: I certify that a FTF encounter for this patient was performed on August 23, 2022 and that such encounter was related to the primary reason the patient requires home health services. The encounter was conducted in the following manner: By me as the certifying physician, WOOD FORM BUILDER, PA or By an inpatient physician, WOOD FORM BUILDER or PA during an inpatient stay who communicated findings to me, Certification And Authentication I certify that I composed the above information based on my clinical judgment relating to this patient's medical condition and, if applicable, clinical findings communicated to me by the NPP or inpatient physician who performed the FTF encounter. Name of Provider that will be monitoring home health services: Jessica Hare
[2022-08-23 11:17] LABS: Campylobacter PCR Negative (Negative); Salmonella PCR Negative (Negative); Shiga Toxin PCR Negative (Negative); Shigella/Enteroinvasive Ecoli Negative (Negative)
--- NOTE | 2022-08-23 21:23 | INDS_ITS ---
Date of service: 08/22/22 PT Notes Visit Reasons: Gastroeneteritis,Hematochezia,Hypokalemia, Physical Therapy Inpatient Discharge Summary Date: 08/22/2022? Dates of Service: 08/22/2022 only This is a clinical summary of care provided for the duration of dates listed above. No charge was made in the completion of this documentation. Referring Doctor:? David Mustafa MD PT Orders: PT CONSULT: Safety consult for D/C Precautions: Fall. Standard. Activity as tolerated. Patient Profile/Admitting Diagnosis:? Alona is a 72-year-old female who presented to the ED on 08/21/2022 due to a weeklong bloody diarrhea.? Patient is admitted to [facility] for management of gastroenteritis, hematochezia, hypomagnesemia, hypokalemia kalemia, history of C. difficile, EtOH disorder EtOH liver disease, GERD, and previous CVA.? PT referral was made for safety consult for D/C related to previous stroke PMHX: All Active Problems?(Updated 08/21/22 @ 23:37 by David Mustafa) H/O Clostridium difficile infection (Acute) Gastroenteritis (Acute) Alcoholic liver disease (Chronic) Hematochezia (Acute) Diarrhea (Acute) Hypomagnesemia (Acute) Blood in the stool (Acute) Hypokalemia (Acute) Restless leg syndrome (Acute) Insomnia (Acute) Gastroesophageal reflux disease (Acute) Alcohol use disorder, moderate, in early remission (Chronic 11/01/16) Cerebrovascular accident (CVA) (Chronic 11/18/12) residual tingling on right tn right but no weakness tell us that the residual headaches tinglingDepressive disorder (Acute) Osteoarthritis (Acute) Gastritis and duodenitis (Acute) Hypertension (Acute) Medical History? adult child of alcoholic parents Anxiety Arthritis of first MTP joint Clostridium difficile colitis Elevated liver function tests normal in 2020 Family estrangement Goiter (12/04/12) NORMAL THYROID FUNCTION History of anxiety disorder Insomnia (12/05/15) uses otcInsomnia due to alcohol NSAID induced gastritis Peptic ulcer disease Right renal mass cyst CT 2017- no f/u needed Screening for colon cancer declines screening Surgical History? Arthroplasty of knee (~1989) LEFT Dilation and curettage History of arthroscopy of knee Hysterectomy, Laproscopic HAS OVARIES Status post dilation and curettage Status post laparoscopic hysterectomy Social History/Home Situation: Lives at [facility] in [facility], [place] independent with all aspects of ADLs prior to admission.? Uses single-point cane occasionally.? Still drives. Equipment Owned/DME: SPC Subjective: NT. See most recent BAND SPLITTER notes. Objective: General Observation: NT. See most recent BAND SPLITTER notes. Mental Status: NT. See most recent BAND SPLITTER notes. Pain: NT. See most recent BAND SPLITTER notes. Vital Signs: NT. See most recent BAND SPLITTER notes. ROM:4 Right Upper Extremity: ? Shoulder Flexion WFL. Shoulder abduction WFL. Elbow flexion WFL. Wrist flexion WFL. Functional opening and closing of hand WFL. Left Upper Extremity:? Shoulder Flexion WFL. Shoulder abduction WFL. Elbow fle xion WFL. Wrist flexion WFL. Functional opening and closing of hand WFL. Right Lower Extremity: Hip flexion WFL. Hip abduction WFL. Knee flexion WFL. Ankle dorsiflexion WFL. Ankle plantarflexion WFL. Left Lower Extremity: Hip flexion WFL. Hip abduction WFL. Knee flexion WFL. Ankle dorsiflexion WFL. Ankle plantarflexion WFL. Strength: Right Upper Extremity: Shoulder flexors 4/5. Shoulder abductors 4/5. Elbow flexors 4/5. Elbow extensors 4/5. [employer] strong. Left Upper Extremity: Shoulder flexors 4/5. Shoulder abductors 4/5. Elbow flexors 4/5. Elbow extensors 4/5. [employer] strong. Right Lower Extremity: Hip flexors 4/5. Hip abductors 4/5. Knee flexors 4/5. Knee extensors 4/5. Ankle dorsiflexors 4/5. Ankle plantarflexors 4/5. Left Lower Extremity: Hip flexors 4/5. Hip abductors 4/5. Knee flexors 4/5. Knee extensors 4/5. Ankle dorsiflexors 4/5. Ankle plantarflexors 4/5. Bed Mobility/Transfers: Sit to stand standby assist with FWW Stand to sit standby assist with FWW Bed to toilet seat with standby assist with FWW Toilet seat to bed with standby assist with FWW Gait: Instructed patient with level surface ambulation of 250 feet requiring stand by assist and wheelchair follow. Leah decreased. Step height decreased. Step length decreased. Balance: Static Sitting: Normal Dynamic Sitting: Normal Static Standing: Fair Dynamic Standing: Fair Special Tests: Mobility Limitations Standardized Measure [facility] 6 clicks Basic Mobility Inpatient Short Form: Raw Score: 20? CMS Score: 36% deficit? ? ? Assessment: Needed to use front-wheeled walker for today's ambulation due to new onset bilateral lower extremity shaking which patient believes may be due to anxiety.? We will assess safety of use of single-point cane for the afternoon session.? Watery stool x 1 during evaluation. Patient presents with clinical signs and symptoms consistent with current/admitting diagnoses that have resulted to mobility limitations, gait instability, generalized weakness, and overall ADL decline as demonstrated by the following impairment level findings: 1.? Decreased strength to B UE/LE major muscle groups 2.? Impaired sitting/standing balance 3.? Impaired activity tolerance Impairments are contributing to the following functional limitations: 1.? Difficulty with ambulation without assistive device 2.? Increased completion time for mobility ADL performance 4.? Increased risk for falls 5.? Difficulty with managing steps alone safely Goals: Goals X1 week 1. Supine-Sit independent NOT MET 2. Sit-Supine independent NOT MET 3. Sit-Stand independent NOT MET 4. Stand-Sit independent with no AD NOT MET 5. Bed-Chair independent with no AD NOT MET 6. Chair-Bed independent with no AD NOT MET 7. Independent gait on level surface with use of no AD for at least 300 feet without report of pain nor dyspnea NOT MET 8. Independent with home exercise program NOT MET 9. Good static and dynamic standing balance/tolerance NOT MET DISCHARGE RECOMMENDATIONS: [] ? Home with no services [] [X] ? Home with services.? Patient will benefit from home health PT services in order to progress mobility level using least restrictive assistive ambulatory device, assess home safety, identify additional equipment needs, and establish a functional maintenance program that will increase ability of patient to remain at home. [] ? Home with outpatient PT [] [] ? SNF for continued rehabilitation [] [] ? [facility] Care [] [] ? SNF versus LTC based on ability to participate and progress [] TREATMENT CODE/TIME: CT Thank you for the opportunity to participate in the care of this patient. Mayela Flannery PT, DPT, CLT [facility] [place], [place]
== END 2022-08-22 16:24 | disposition home health service (06) ==
LOC: ER 23:25 → MS 23:27
PROVIDERS: Internal Medicine; Admitting Provider Family Medicine; Emergency Provider Nurse Practitioner Acute Care; PCP Nurse Practitioner Family; Visit Provider Family Medicine
DX: K52.9 Noninfective gastroenteritis and colitis, unspecified (principal); E87.6 Hypokalemia; E83.42 Hypomagnesemia; F10.10 Alcohol abuse, uncomplicated; R92.1 Mammographic calcification found on diagnostic imaging of breast; K70.9 Alcoholic liver disease, unspecified; G25.81 Restless legs syndrome; G47.00 Insomnia, unspecified; K21.9 Gastro-esophageal reflux disease without esophagitis; Z86.73 Personal history of transient ischemic attack (TIA), and cerebral infarction without residual deficits; F32.A Depression, unspecified; I10 Essential (primary) hypertension; Z87.11 Personal history of peptic ulcer disease; Z87.891 Personal history of nicotine dependence
CPT/HCPCS: 36415; 80053; 80307; 85027; 87493; 87505; 87635; 96361; 96365; 96366; 96368; 96375; 97162; 99285; 74177; 80320; 81003; 81015; 83605; 83630; 83735; 84100; 84439; 84443; 85025; 85610; 86140; 99223; 99239; G0378; J3480; Q9967

== ENCOUNTER 2022-08-21 21:14 | Outpatient (REF) | payer OTHER, SELFPAY ==
[2022-08-21 21:28] LABS: Abs Immature Grans 0.08 10^3/uL (0.0-0.06); Absolute Lymphocyte Count 1.04 10^3/uL (1.2-3.4); Absolute Neutrophil Count 11.63 10^3/uL (1.2-6.7); Basophils % 0.4; HCT 39.8 % (36.0-46.0); HGB 13.8 g/dL (11.2-15.7); Immature Grans % 0.6; Lymphocytes % 7.7; MCH 30.6 pg (27.0-33.0); MCHC 34.7 % (32.0-36.0); MCV 88 fL (80-95); MPV 11.8 fL (8.0-11.0); Monocytes % 5.5; Neutrophils % 85.8; Platelet Count 317 10^3/uL (130-400); RBC 4.51 10^6/uL (3.93-5.22); RDW-SD 44.5 fL; WBC 13.55 10^3/uL (4.4-10.8)
[2022-08-21 21:31] LABS: Absolute Basophil Count 0.05 10^3/uL (0.0-0.2); Absolute Monocyte Count 0.75 10^3/uL (0.1-0.8)
[2022-08-21 21:41] LABS: ALT 29 U/L (14-59); AST 19 U/L (15-37); Albumin 4.2 g/dL (3.4-5.0); Alkaline Phosphatase 82 U/L (46-116); Anion Gap 14.1 mmol/L (3-11); BUN 10 mg/dL (7-18); Bilirubin, Total 1.9 mg/dL (0.2-1.0); CO2 20.9 mmol/L (21.0-32.0); CREATININE 1.3 mg/dL (0.55-1.02); Calcium 10.1 mg/dL (8.5-10.1); Chloride 106 mmol/L (98-107); Estimated GFR 43.96 (mL/min/1.73m2); Glucose 124 mg/dL (74-106); Potassium 3.2 mmol/L (3.5-5.1); Sodium 141 mmol/L (136-145); Total Protein 7.3 g/dL (6.4-8.2)
== END 2022-08-21 21:15 | disposition home or self-care (01) ==
LOC: LBN 21:14
PROVIDERS: PCP Nurse Practitioner Family; Visit Provider Nurse Practitioner Family
DX: K92.1 Melena (principal); R19.7 Diarrhea, unspecified
CPT/HCPCS: 80053; 85025

== ENCOUNTER 2022-11-08 16:07 | Outpatient (REF) | payer OTHER, SELFPAY ==
[2022-11-08 17:18] LABS: Abs Immature Grans 0.02 10^3/uL (0.0-0.06); Absolute Basophil Count 0.04 10^3/uL (0.0-0.2); Absolute Eosinophil Count 0.14 10^3/uL (0.0-0.7); Absolute Lymphocyte Count 1.28 10^3/uL (1.2-3.4); Absolute Monocyte Count 0.47 10^3/uL (0.1-0.8); Basophils % 0.6; Eosinophils % 2.1; HCT 32.4 % (36.0-46.0); HGB 10.2 g/dL (11.2-15.7); Immature Grans % 0.3; MCH 25.1 pg (27.0-33.0); MCHC 31.5 % (32.0-36.0); MCV 80 fL (80-95); MPV 12.1 fL (8.0-11.0); Platelet Count 254 10^3/uL (130-400); RBC 4.07 10^6/uL (3.93-5.22); RDW 14.6 % (11.7-14.6); RDW-SD 42.1 fL; WBC 6.75 10^3/uL (4.4-10.8)
[2022-11-08 17:59] LABS: ALT 16 U/L (14-59); AST 13 U/L (15-37); Albumin 3.6 g/dL (3.4-5.0); Alkaline Phosphatase 90 U/L (46-116); BUN 17 mg/dL (7-18); Bilirubin, Total 0.6 mg/dL (0.2-1.0); Calcium 9.1 mg/dL (8.5-10.1); Chloride 106 mmol/L (98-107); Estimated GFR 60.23 (mL/min/1.73m2); Glucose 123 mg/dL (74-106); Sodium 141 mmol/L (136-145); TSH (W/Ref FT4) 3.81 uIU/mL (0.36-3.74); Total Protein 6.3 g/dL (6.4-8.2)
[2022-11-08 19:20] LABS: Hemoglobin A1C 4.9 % (<5.7)
== END 2022-11-08 16:08 | disposition home or self-care (01) ==
LOC: LBN 16:07
PROVIDERS: PCP Nurse Practitioner Family; Visit Provider Nurse Practitioner Family
DX: E83.42 Hypomagnesemia (principal); E87.6 Hypokalemia; F32.9 Major depressive disorder, single episode, unspecified; I10 Essential (primary) hypertension; K21.9 Gastro-esophageal reflux disease without esophagitis; K70.9 Alcoholic liver disease, unspecified
CPT/HCPCS: 80053; 83036; 84439; 84443; 85025

== ENCOUNTER 2022-11-15 17:31 | Outpatient (REF) | payer OTHER, SELFPAY ==
[2022-11-15 10:37] LABS: Lactate 1.6 mmol/L (0.6-1.4)
== END 2022-11-15 17:32 | disposition home or self-care (01) ==
LOC: LBN 17:31
PROVIDERS: PCP Nurse Practitioner Family; Visit Provider Nurse Practitioner Family
DX: K92.1 Melena (principal)
CPT/HCPCS: 83605

== ENCOUNTER 2022-12-06 11:16 | Outpatient (CLI) | payer OTHER, SELFPAY ==
--- NOTE | 2022-12-06 11:00 | DI.RAD_ITS ---
Exam(s) XR HIP LT AP LAT ONLY EXAM: XR HIP LT AP LAT ONLY CLINICAL HISTORY: S/P IM NAIL. TECHNIQUE: 2D digital imaging was performed. COMPARISON: No exams were available for comparison FINDINGS: Two views There 2 supported screws across the femoral neck. These are supported by an intramedullary sage which measures approximately 22 cm. There is 1 screw supporting the sage in proximal diaphysis. Screws appear to be in satisfactory position. There is no hardware loosening. Moderate degenerative changes are noted in the hip joint. IMPRESSION: As above. DATA REPOSITORY: RADIATION DOSE DELIVERED:
== END 2022-12-06 11:17 | disposition home or self-care (01) ==
LOC: DIORS 11:16
PROVIDERS: PCP Nurse Practitioner Family; Referring Provider Nurse Practitioner Family
DX: S72.002D Fracture of unspecified part of neck of left femur, subsequent encounter for closed fracture with routine healing; W19.XXXD Unspecified fall, subsequent encounter
CPT/HCPCS: 99213; 73502

== ENCOUNTER → 2023-03-15 00:19 | Outpatient (CLI) | payer OTHER, SELFPAY ==
--- NOTE | 2023-03-15 | DI.DEXA_ITS ---
Exam(s) XR DEXA BONE DENSITY W/WO REE EXAM: XR DEXA BONE DENSITY W/WO REE CLINICAL HISTORY: screening FOR OSTEOPOROSIS IN POSTMENOPAUSAL WOMAN,Z78.0 TECHNIQUE: COMPARISON: No exams were available for comparison FINDINGS: Lateral Spine Image: Unremarkable. No compression deformities identified. Right hip: Total T-Score: -1.3 Total Z-Score: 0.3 T- and Z-scores: Findings are consistent with osteopenia. Lumbar Spine: Total T-Score: -0.6 Total Z-Score: 1.7 T- and Z-scores: Within normal limits. IMPRESSION: No evidence of osteoporosis.
== END ==
PROVIDERS: PCP Nurse Practitioner Family; Visit Provider Nurse Practitioner Family
DX: Z13.820 Encounter for screening for osteoporosis (principal); Z78.0 Asymptomatic menopausal state
CPT/HCPCS: 77080

== ENCOUNTER 2023-04-23 03:47 | Outpatient (CLI) | payer OTHER, SELFPAY ==
--- OUTSIDE RECORDS SUMMARY | 2023-04-23 03:55 | XMS_ITS | Continuity of Care Document ---
Author Name Unknown Address Unknown Organization Unknown Address Unknown Care Team Providers Care Hand Riveter Name Role Phone MD JOLENE SINGLETARY Admitting Physician Unavailabl e PCPNF, PCP NOT Primary Care Physician Unavailab MD CORINA Drew H Attending Physician Olegario pryor Chief Complaint and Reason for Visit Chief Complaint FRACTURE-HIP LEFT Reason for Visit Fracture of femoral neck, left Allergies, Adverse Reactions, Alerts Allergen Type Severity Reaction Last Updated Verified Status NO KNOWN ALLERGY Allergy Unknown September 05, 2022 No Active Social History Smoking Status Status Start Date End Date Date of Observa tion Current some day smoker September 06, 2022 12:45pm Observation Status Observation Response Date of Response Hx Tobacco Use Yes September 06, 2022 1 2:45pm Additional Data Assigned Sex Female Problems Active Problems Medical Problem Onset Date Status Fracture of femoral neck, left A ctive Medications Medication Status Dose Units Route Directions Qty Days St art Date End Date Instructions Acetaminophen (Tylenol) 325 Mg TAB Active 650 MG PO Every 6 Hours as needed for Mild Pain(1-3) 56 7 September 14, 2022 7:35am Acetaminophen/H ydrocodone Bitart ([place] 5/325) 1 Each TAB Active 1-2 TAB PO Every 4 Hours as needed for Moderate To Severe Pain(4-10) 20 5 September 14, 2022 7:36am Amlodipine Besylate (Norvasc) 5 Mg TAB Active 5 MG PO Every Morning Cyclosporine (Restasis 0.05% Oph Emul) 1 Each DROPERETTE Active 1 DROP BOTH EYES Twice A Day 1 Fish Oil (Cool 3) 1,000 Mg CAP Active 1000 MG PO Daily Fluoxetine Hcl (Prozac) 40 Mg CAP Active 40 MG PO Daily Hctz/Losartan Potassium (Hyzaar 100-25) 1 Each TAB Active 1 TAB PO Daily Losartan Potassium (Cozaar) 100 Mg TAB Active 100 MG PO Daily Pantoprazole (Protonix) 40 Mg TABEC Active 40 MG PO Daily Potassium Chloride (K-Tabs) 10 Meq TABCR Active 20 MEQ PO Daily Quetiapine Fumarate (Seroquel) 50 Mg TABLET Active 50 MG PO Daily Simvastatin (Zocor) 10 Mg TAB Active 10 MG PO Every Evening Sucralfate (Carafate) 1 Gm TAB Active 1 GM PO Before Meals And At Bedtime Thiamine Hcl (Vitamin B-1) 100 Mg TAB Active 100 MG PO Daily Trazodone Hcl (Desyrel) 100 Mg TAB Active 100 MG PO Bedtime Vitamin B Complex Active 1 CAP PO Daily Vitamin D (Vitamin D (D3)) 1,000 Unit TAB Active 1 TAB PO Daily Medical Equipment Device Date Implanted Device Details Orthopaedic bone screw, non-bioabsorbable, sterile September 06, 2022 SONIDO: [id number] Issuing Agency: [facility] Device Id: [id number] Expiration Date: 2032-01-13 Lot Number: [id number] Orthopaedic bone screw, non-bioabsorbable, sterile September 06, 2022 SONIDO: [id number] Issuing Agency: [facility] Device Id: [id number] Expiration Date: 2031-11-21 Lot Number: [id number] Procedures Procedure Date Performed Status Open reduction and internal fixation of left hip using intramedullary hip screw September 06, 2022 1:34pm completed ECG (electrocardiogram) September 05, 2022 7:08pm co mpleted X-ray of chest, single view September 05, 2022 comp shy Silva trauma team September 05, 2022 completed Evaluation or management service September 06, 2022 completed Occupational therapy evaluation and treatment Nilson covington 2022 2:23pm active Physical therapy evaluation and treatment September 062022 2:23pm active X-ray exam hip uni 2-3 views September 06, 2022 com pleted Encounter Stat Only Day Sgy September 06, 2022 comp leted Relevant Diagnostic Tests and/or Laboratory Data Laboratory Results Test Date/Time Result Interpretation Reference Range Result Comment Performing Site White Blood Count September 09, 2022 2:21am 9.2 4.5-11.5 [facility] [id number] [address] [place] [address] Red Blood Count September 09, 2022 2:21am 2.89 3.8-5.1 [facility] [id number] [address] [place] [address] Hemoglobin September 10, 2022 9:34am 8.2 12.0-15.2 [facility] [id number] [address] [place] [address] Hematocrit September 10, 2022 9:34am 25.1 34.0-45.5 [facility] [id number] [address] [place] [address] Mean Corpuscular Volume September 10, 2022 9:34am 91 80-94 [facility] [id number] [address] [place] [address] Mean Corpuscular Hemoglobin September 10, 2022 9:34am 29.6 27.0-33.0 [facility] [id number] [id number] [place] [address] Mean Corpuscular Hemoglobin Concent September 10, 2022 9:34am 32.7 33.0-37.0 [facility] [id number] [address] [place] [address] Red Cell Distribution Width September 09, 2022 2:21am 12.9 10.7-14.5 [facility] [id number] [address] [place] [address] Platelet Count September 09, 2022 2:21am 229 150-450 [facility] [id number] [address] [place] [address] Mean Platelet Volume September 09, 2022 2:21am 11.3 5.7-10.7 [facility] [id number] [address] [facility] [address] Neutrophils (%) (Auto) September 09, 2022 2:21am 75 47-75 [facility] [id number] [address] [facility] [address] Immature Granulocyte % (Auto) September 09, 2022 2:21am 1 0-0 [facility] [id number] [address] [facility] [address] Lymphocytes (%) (Auto) September 09, 2022 2:21am 14 25-44 [facility] [id number] [address] [facility] [address] Monocytes (%) (Auto) September 09, 2022 2:21am 9 3-10 [facility] [id number] [address] [facility] [address] Eosinophils (%) (Auto) September 09, 2022 2:21am 1 0-7 [facility] [id number] [address] [place] [address] Basophils (%) (Auto) September 09, 2022 2:21am 1 0-1 [facility] [id number] [address] [facility] [address] Nucleated Red Blood Cells % September 09, 2022 2:21am 0.0 0-0.2 [facility] [id number] 28[address] [facility] [address] Neutrophils # (Auto) September 09, 2022 2:21am 6.9 1.3-6.7 [place] [id number] [address] [place] [address] Immature Granulocyte # (Auto) September 09, 2022 2:21am 0.1 0.0-0.0 [place] [id number] [address] [place] [address] Lymphocytes # (Auto) September 09, 2022 2:21am 1.2 1.4-4.1 [place] [id number] 28[address] [facility] [address] Monocytes # (Auto) September 09, 2022 2:21am 0.8 0-1.3 [facility] [id number] [address] [facility] [address] Eosinophils # (Auto) September 09, 2022 2:21am 0.1 0-0.8 [facility] [id number] [address] [facility] [address] Basophils # (Auto) September 09, 2022 2:21am 0.1 0-0.1 [place] [id number] 28[address] [facility] [address] Nucleated Red Blood Cells # September 09, 2022 2:21am 0.00 0-0.01 [place] [id number] [address] [place] [address] Manual Differential September 09, 2022 2:21am Not Ind [facility] [id number] [address] [place] [address] Urine Source September 06, 2022 5:03pm URCATH [facility] [id number] [address] [place] [address] Urine Color September 06, 2022 5:03pm Yellow Yel-Sangita * [facility] [id number] [address] [place] [address] Urine Appearance September 06, 2022 5:03pm Clear Clear * [facility] [id number] [address] [place] [address] Urine pH September 06, 2022 5:03pm 6.0 5.0-8.0 [facility] [id number] [address] [place] [address] Urine Specific [place] September 06, 2022 5:03pm > 1.030 1.005-1.03 0 A specific gravity of 1.030 or greater may be caused by the following conditions:Clini fatemeh: Dehydration (diarrhea, excess sweating, vomiting, water restriction) Glucosuria Heart Failure Renal arterial stenosis SIADH (Syndrome of inappropriate antidiuretic hormone secretion)Drug related: I.V. Dextran I.V. Sucrose Radiographic contrast medium [facility] [id number] [address] [place] [address] Urine Protein September 06, 2022 5:03pm 100 Negative * [facility] [id number] 28[address] [facility] [address] Urine Glucose (UA) September 06, 2022 5:03pm Negative Negative * [facility] [id number] 28[address] [facility] [address] Urine Ketones September 06, 2022 5:03pm 20 Negative * [facility] [id number] [address] [place] [address] Urine Occult Blood September 06, 2022 5:03pm Negative Negative * [facility] [id number] [address] [place] [address] Urine Nitrite September 06, 2022 5:03pm Negative Negative [facility] [id number] [address] [place] [address] Urine Bilirubin September 06, 2022 5:03pm Negative Negative [facility] [id number] [address] [place] [address] Urine Urobilinogen September 06, 2022 5:03pm Negative 0.0-1.0 [facility] [id number] [address] [place] [address] Urine Leukocyte Esterase September 06, 2022 5:03pm 75 Negative [facility] [id number] [address] [place] [address] Microscopic Urinalysis (T) September 06, 2022 5:03pm ----- [facility] [id number] [address] [place] [address] Urine RBC September 06, 2022 5:03pm 3-10 0-2 [facility] [id number] [address] [place] [address] Urine WBC September 06, 2022 5:03pm 21-40 0-5 [facility] [id number] [address] [place] [address] Urine Epithelial Cells September 06, 2022 5:03pm None Seen Few [facility] [id number] [address] [place] [address] Urine Crystals September 06, 2022 5:03pm None Seen None * [facility] [id number] [address] [facility] [address] Urine Bacteria September 06, 2022 5:03pm Few None [facility] [id number] [address] [place] [address] Urine Casts September 06, 2022 5:03pm Present None * [facility] [id number] [address] [facility] [address] Urine Hyaline Casts September 06, 2022 5:03pm >20 0-1 [facility] [id number] [address] [facility] [address] Urine Yeast September 06, 2022 5:03pm None Seen None [facility] [id number] [address] [facility] [address] Urinalysis Comment September 06, 2022 5:03pm * * Ref Range = * Clinical evaluation required. [facility] [id number] [address] [facility] [address] Urine Culture Indicated September 06, 2022 5:03pm To follow [facility] [id number] [address] [facility] [address] Sodium Level September 14, 2022 9:30am 134 136-145 [facility] [id number] 28[address] [facility] [address] Potassium Level September 14, 2022 9:30am 3.1 3.5-5.1 [facility] [id number] [address] [facility] [address] Chloride Level September 14, 2022 9:30am 93 98-107 [facility] [id number] [address] [facility] [address] Carbon Dioxide Level September 14, 2022 9:30am 32 23-31 [facility] [id number] [address] [facility] [address] Anion Gap September 14, 2022 9:30am 12 8-18 [facility] [id number] 28[address] [facility] [address] Blood Urea Nitrogen September 14, 2022 9:30am 28 10-20 [facility] [id number] [address] [facility] [address] Creatinine September 14, 2022 9:30am 1.0 0.6-1.1 [facility] [id number] [address] [facility] [address] Estimat Glomerular Filtration Rate September 14, 2022 9:30am 58 50-100 Stages of Patients with Estimated GFR Known Kidney Disease (ml/min/1.73 sq.meters)Stage 1 - Kidney damage w/normal 90 mL/min or greater or increased GFRStage 2 - Kidney disease w/mildly 60-89 mL/min decreased GFRStage 3 - Moderately decreased GFR 30-59 mL/minStage 4 - Severely decreased GFR 15-29 mL/minStage 5 - Kidney failure 14 mL/min or lessTo estimate the GFR for Americans, multiply the result provided by 1.21. [facility] [id number] [address] [facility] [address] Glucose Level September 14, 2022 9:30am 139 60-100 [facility] [id number] [address] [place] [address] Calcium Level September 14, 2022 9:30am 10.1 8.4-10.2 [facility] [id number] [address] [place] [address] Phosphorus Level September 07, 2022 12:09am 3.7 2.3-4.7 [facility] [id number] [address] [place] [address] Magnesium Level September 09, 2022 2:21am 1.63 1.60-2.60 [facility] [id number] [address] [place] [address] Total Bilirubin September 09, 2022 2:21am 1.2 0.2-1.2 [facility] [id number] [address] [place] [address] Aspartate Amino Transf (AST/SGOT) September 09, 2022 2:21am 12 5-34 [facility] [id number] [address] [place] [address] Alanine Aminotransfera se (ALT/SGPT) September 09, 2022 2:21am 11 0-55 [facility] [id number] [address] [place] [address] Total Protein September 09, 2022 2:21am 5.6 5.8-7.6 [facility] [id number] [address] [place] [address] Albumin September 09, 2022 2:21am 3.1 3.2-4.7 [facility] [id number] [address] [place] [address] Alkaline Phosphatase September 09, 2022 2:21am 52 40-150 [facility] [id number] [address] [place] [address] Cholesterol Level September 06, 2022 4:05am 113 < 200 Note: M-Fgiba-X-Cystei ne can cause falsely low measurements of cholesterol. Correlation with patient's medication history is recommended. [facility] [id number] [address] [place] [address] Triglycerides Level September 06, 2022 4:05am 91 < 150 Note: Q-Psjoc-K-Cystei ne can cause falsely low measurements of triglycerides. Correlation with patient's medication history is recommended. [facility] [id number] [address] [place] [address]50 HDL Cholesterol September 06, 2022 4:05am 29 40-60 Note: R-Uikni-A-Cystei ne at elevated concentrations may lead to falsely low measurements of HDL. Correlation with patient's medication history is recommended. [facility] [id number] [address] [place] [address] LDL Cholesterol September 06, 2022 4:05am 66 0-99 [facility] [id number] [address] [place] [address] Cholesterol/HD L Ratio September 06, 2022 4:05am 3.9 See Note LDL Cholesterol (mg/dL)- Primary Target of Therapy <100 Optimal 100-129 Near Optimal/Above Optimal 130-159 Borderline High 160-189 High >190 Very HighCholesterol (mg/dL) <200 Desirable 200-239 Borderline High >240 HighHDL Cholesterol (mg/dL) <40 Unfavorable >60 FavorableTriglyc erides (mg/dL) <150 Normal 150-199 Borderline High 200-499 High >500 Very High Chol/HDLC Ratio 3.3-4.4 Low Risk 4.4-7.1 Average Risk 7.1-11.0 Mod Risk > 11.0 High RiskLipid and Triglyceride testing is optimized with 8-10 Hrs pretesting fast. [facility] [id number] [address] [place] [address] Cholesterol Ratio (LDL/HDL) September 06, 2022 4:05am 2.3 [facility] [id number] [address] [place] [address] Hemoglobin A1c September 06, 2022 4:05am 4.4 <5.7 Hemoglobin A1C (%) Glycemic Goal < 8.0 Less stringent < 7.0 General (non- adults) < 6.5 More awgeeeacfMqO2w values above 6.5 % are an indication of hyperglycemia during the preceding 2 to 3 months or longer. According to the recommendations of the ADA. HbA1c values above 6.5 % are suitable for the diagnosis of diabetes mellitus. Patients with HbA1c values in the range of 5.7 - 6.4 % may be at risk of developing diabetes. [facility] [id number] [address] [place] [address] Bedside Glucose September 14, 2022 11:32am 148 60-100 [facility] [id number] [address] [place] [address] Microbiology Results Procedure Source Result Collection Date/Time Result Date/Time Result Comment Performing Site Urine Culture Urine Catheterized No growth September 06, 2022 5:03pm September 08, 2022 7:30am [facility] [id number] [address] [place] [address] Diagnostic Imaging Reports Report Dictated Date/Time Dictated By Status Chest X-Ray September 06, 2022 5:09am SRIKANTH MOSER MD completed Portable AP chest radiograph , semierect CLINICAL HISTORY: Left hip fracture. Preoperative evaluation.. Comparison studies: None. FINDINGS: Cardiomediastinal silhouette is normal in size. There is no focal consolidation. There is no pleural effusion or pneumothorax. There are no acute osseous abnormalities. IMPRESSION: No acute cardiopulmonary process. Dictated By: SRIKANTH MOSER MD Date Dictated: 09/06/22 0509 Signed by: SRIKANTH MOSER MD Date Signed: 09/06/22509 Report Dictated Date/Time Dictated By Status Hip X-Ray September 07, 2022 7:41am Zulma ALCANTARA completed EXAM: Intraoperative left hi p radiographs HISTORY: Postsurgical changes of left hip internal fixation COMPARISON: None FINDINGS: Intraoperative fluoroscopy provided for surgical guidance. Please see surgical report for full details. Postsurgical changes of left hip internal fixation IMPRESSION: Intraoperative fluoroscopy provided for surgical guidance. Please see surgical report for full details. Dictated By: PB BELLA DO Date Dictated: 09/07/22740 Signed by: PB BELLA DO Date Signed: 09/07/22741 Vital Signs Vital Reading Result Reference Range Collection Date/Time Heart Rate 85 /min 60-100 September 14, 2022 11:56am BP Diastolic 77 mm[Hg] 60-90 September 14, 2022 11:56am Respiratory rate 16 /min -September 14, 2 023 11:56am Body Temperature 97.5 [degF] 97.6-99.5 September 06, 2 023 3:13pm Weight 73.211612 kg September 05, 2022 6:00pm BMI (Body Mass Index) 25.4 kg/m2 September 052022 6:00pm Advance Directives Advance Directive Response Recorded Date/ Time Does the Patient have an Advance Directive? No September 05, 2022 6:00pm Insurance Providers Guarantor David Sheridan Address [address] [place] [id number] Contact Info. Home Phone: Payer Policy Id Coverage Id Subscriber's Name Subscriber Id Effective Date Expiration Date [facility] [id number] David Sheridan [id number] 2022 Encounters Encounter Location(s) Arrival/Admit Date Discharge/Depart Date Provider([facility]) [facility] 05, 2022 6:22pm September 14, 2022 3:00pm CORINA RIVERA MD Recent Diagnosis Onset Date Fracture of femoral neck, left Functional Status Observation Response Date Recorded Onset Within the Last 7 Days No Problem Identifi ed September 05, 2022 6:00pm Assessments Diagnosis Onset Date Resolution Status Fracture of femoral neck, left Active Plan of Treatment Future Tests Future scheduled test information is unavailable Pending Tests Test Name Ordered Date Scheduled Date White Blood Count September 05, 2022 7:08pm Red Blood Count September 05, 2022 7:08pm Hemoglobin September 05, 2022 7:08pm Hematocrit September 05, 2022 7:08pm Mean Corpuscular Volume September 05, 2022 7:08pm Mean Corpuscular Hemoglobin September 05, 2022 7:08p m Mean Corpuscular Hemoglobin Concent September 05 7:08pm Red Cell Distribution Width September 05, 2022 7:08p m Platelet Count September 05, 2022 7:08pm Mean Platelet Volume September 05, 2022 7:08pm Prothrombin Time September 05, 2022 7:08pm Prothromb Time International Ratio September 05 7:08pm Activated Partial Thromboplast Time September 05 7:08pm Sodium Level September 05, 2022 7:08pm Potassium Level September 06, 2022 12:00pm Chloride Level September 05, 2022 7:08pm Carbon Dioxide Level September 05, 2022 7:08pm Anion Gap September 05, 2022 7:08pm Blood Urea Nitrogen September 05, 2022 7:08pm Creatinine September 05, 2022 7:08pm Estimat Glomerular Filtration Rate September 05 7:08pm Glucose Level September 05, 2022 7:08pm Calcium Level September 05, 2022 7:08pm Total Bilirubin September 05, 2022 7:08pm Aspartate Amino Transf (AST/SGOT) September 05, 2022 7:08pm Alanine Aminotransferase (ALT/SGPT) September 05 7:08pm Total Protein September 05, 2022 7:08pm Albumin September 05, 2022 7:08pm Alkaline Phosphatase September 05, 2022 7:08pm Future Visits Future appointment information is unavailable Referrals to Other Providers Referral information is unavailable Future Procedures Procedure Name Ordered Date Scheduled Date Admission September 05, 2022 11:24am September 05, 2022 11:23am Vital Signs Frequency September 05, 2022 7:12p m September 05, 2022 7:08pm I&O Frequency September 05, 2022 7:12pm September 052022 7:08pm Comprehensive Metabolic Panel September 05, 2022 7:1 2pm September 05, 2022 7:08pm CBC no Diff (Hemogram) September 05, 2022 7:12pm September 05, 2022 7:08pm Prothrombin Time September 05, 2022 7:12pm September 05, 2022 7:08pm Partial Thromboplastin Time September 05, 2022 7:12p m September 05, 2022 7:08pm Nurse to Notify September 05, 2022 7:50pm Ma y 2022 7:48pm Monitor Blood Glucose September 05, 2022 7:54pm September 05, 2022 7:53pm Nurse to Notify September 05, 2022 7:54pm Ma y 2022 7:53pm COMM: Bedtime Glucose <110 September 05, 2022 7:54pm September 05, 2022 7:53pm Potassium (K) September 06, 2022 5:07am September 06, 2022 12:00pm Physician Consult September 06, 2022 11:08am August 11:08am Consult CM for Rehab September 06, 2022 2:26pm August 142022 2:23pm OT EVAL & TREAT September 06, 2022 2:26pm September 06, 2022 2:23pm PT EVAL & TREAT September 06, 2022 2:26pm September 06, 2022 2:23pm Advance Diet as Tolerated September 06, 2022 2:26pm September 06, 2022 2:23pm Consult CM for DC Planning September 09, 2022 10:29a m September 09, 2022 10:29am Consult CM for Dur Med Equip September 13, 2022 1:06 pm September 13, 2022 1:06pm Oral Supplements September 13, 2022 5:42pm September 13, 2022 5:42pm Nursing Miscellaneous Order September 14, 2022 10:56 am September 14, 2022 10:54am DISCHARGE September 14, 2022 1:43pm September 14, 2022 1:42pm Future Medications Future medication information is unavailable Patient Instructions Preventing falls in adults Open Reduction and Internal Fixation Surgery (DC) Goals Acute Goals Remain free of injury Demo fall prevention as evid enced by Demonstrate improved balance in Demonstrate improved cogniti on r/t Demonstrate improved safety awareness Have pain score at or below goal Indicate understanding of co ntent by Comprehend nutrition educati on Increase knowledge of diet m odifications Perform HEP for Caregiver will demo care [place] of Caregiver will perform HEP f or Family will perform HEP for Family will demo care techni que of Demonstrate improved safety awareness Community Resource Referral Cooperate w/Dietitian referr ed provider Identify factors causing/con tributing Comply with diet modificatio ns Exhibit adequate understandi ng Demonstrate improved balance in Impr higher balance skills b y performing Demonstrate bed mobility ski ll of Demonstrate optimal mobility Demo fall prevention as evid enced by Demonstrate improved ambulat ion Negotiate stairs/steps Demonstrate improved balance in Demonstrate improved enduran ce Demonstrate increased ROM of Tolerate CPM to Demonstrate hand clinical educator Demonstrate improved strengt h of Increase pinch strength Improve transfer ability Improve transitional skills from Demo fall prevention as evid enced by Become or remain free of inf ection Demonstrate optimal mobility Hospital Discharge Instructions Additional Instructions Patient Instructions Discharge Instructions DISCHARGE: Discharge Follow Up: Fm/Pt to Make Appointment Call MD For:: Increased Breathing Prob Temp of 101 or Greater Increased Swelling Questions or Concerns Unrelieved Dizziness Increased Pain Bleeding Nursing Instructions Discharge Transportation: Private Automobile Accompanied By: Family Belongings Sent Home with Patient: Yes Belongings: Skirt/Dress Valuables Description: ALL PERSONAL BELONGINGS IN ROOM GIVEN TO PATIENT AND DAUGHTER Additional Discharge Information: PLEASE FOLLOW UP WITH DR WHARTON IN THE OFFICE AT [facility] IN 1 WEEK.PLEASE CALL OFFICE ON SATURDAY FOR APPOINTMENT.[phone] AMBULATE WITH ROLLING WALKER WEIGHT BEARING TOLERATED LEFT LEG FALL PRECAUTIONS HIP PRECAUTIONS CALL FOR PAIN UNRELIEVED BY PAIN MEDS,SUDDEN ONSET OF SEVERE PAIN,EXCESSIVE DRAIANGE,FOUL SMELLING DRAINAGE,REDNESS,SWELLING OR SEPARATION OF INCISION OR ANY OTHER SYMPTOM OF CONCERN. Pt/Fm/Caregiver Expressed Understanding of Portal Enrollment: Yes Pt/Family/Caregiver Received Discharge Home Medication List: Yes Prescription(s) Given: Comment: RX FOR PAIN MEDS SENT TO [facility] [place] Discharge Care Plan #1 Problem: Pain Goal: CONTROL PAIN Instructions: TAKE PAIN MEDS PRESCRIBED Discharge Care Plan #2 Problem: High Risk for Infection Goal: NO INFECTION Instructions: CALL FOR SIGNS OR SYMPTOMS OF INFECTION INCLUDING FEVER AND CHILLS Discharge Care Plan #3 Problem: Risk for Falls Goal: NO FALLS Instructions: FALL PRECAUTIONS HIP PRECAUTIONS USE ROLLING WALKER FOR ALL OUT OF BED ACTIVITIES
--- OUTSIDE RECORDS SUMMARY | 2023-04-23 03:55 | XMS_ITS | Continuity of Care Document ---
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 Name Role Phone MD JOLENE SINGLETARY Admitting [...] September 14, 2022 7:35am Acetaminophen/H ydrocodone Bitart ([place] 5/325) 1 Each TAB Active 1-2 TAB PO Every 4 Hours as needed for Moderate To Severe Pain(4-10) 20 5 September 14, 2022 7:36am Amlodipine Besylate (Norvasc) 5 Mg TAB Active 5 MG PO Every Morning Cyclosporine (Restasis 0.05% Oph Emul) 1 Each DROPERETTE Active 1 DROP BOTH EYES Twice A Day 1 Fish Oil ([place] 3) 1,000 Mg CAP Active 1000 MG [...] screw, non-bioabsorbable, sterile September 06, 2022 SONIDO: ()[id number] Issuing Agency: [facility] Device Id: [id number] Expiration Date: 2032-01-13 Lot Number: [id number] Orthopaedic bone screw, non-bioabsorbable, sterile September 06, 2022 SONIDO: ()[id number] Issuing Agency: [facility] Device Id: [id number] Expiration Date: 2031-11-21 Lot Number: [id number] Procedures Procedure Date Performed Status Open reduction [...] Count September 09, 2022 2:21am 9.2 4.5-11.5 [facility] [id number] [address] [place] [address] Red Blood Count September 09, 2022 2:21am 2.89 3.8-5.1 [facility] [id number] [address] [place] [address] Hemoglobin September 10, 2022 9:34am 8.2 12.0-15.2 [facility] [id number] [address] [place] [address] Hematocrit September 10, 2022 9:34am 25.1 34.0-45.5 [facility] [id number] [address] [place] [address] Mean Corpuscular Volume September 10, 2022 9:34am 91 80-94 [facility] [id number] [address] [place] [address] Mean Corpuscular Hemoglobin September 10, 2022 9:34am 29.6 27.0-33.0 [facility] [id number] [address] [place] [address] Mean Corpuscular Hemoglobin Concent September 10, 2022 9:34am 32.7 33.0-37.0 [facility] [id number] [address] [place] [address] Red Cell Distribution Width September 09, 2022 2:21am 12.9 10.7-14.5 [facility] [id number] [address] [place] [address] Platelet Count September 09, 2022 2:21am 229 150-450 [facility] [id number] [address] [place] [address] Mean Platelet Volume September 09, 2022 2:21am 11.3 5.7-10.7 [facility] [id number] [address] [facility] [address] Neutrophils (%) (Auto) September 09, 2022 2:21am 75 47-75 [facility] [id number] [address] [facility] [address] Immature Granulocyte % (Auto) September 09, 2022 2:21am 1 0-0 [facility] [id number] [address] [facility] [address] Lymphocytes (%) (Auto) September 09, 2022 2:21am 14 25-44 [facility] [id number] [address] [facility] [address] Monocytes (%) (Auto) September 09, 2022 2:21am 9 3-10 [facility] [id number] [address] [facility] [address] Eosinophils (%) (Auto) September 09, 2022 2:21am 1 0-7 [facility] [id number] [address] [place] [address] Basophils (%) (Auto) September 09, 2022 2:21am 1 0-1 [facility] [id number] [address] [facility] [address] Nucleated Red Blood Cells % September 09, 2022 2:21am 0.0 0-0.2 [facility] [id number] [address] [facility] [address] Neutrophils # (Auto) September 09, 2022 2:21am 6.9 1.3-6.7 [place] [id number] [address] [place] [address] 76[address] Immature Granulocyte # (Auto) September 09, 2022 2:21am 0.1 0.0-0.0 [place] [id number] [address] [place] [address] Lymphocytes # (Auto) September 09, 2022 2:21am 1.2 1.4-4.1 [place] [id number] [address] [facility] [address] Monocytes # (Auto) September 09, 2022 2:21am 0.8 0-1.3 [facility] [id number] [address] [facility] [address] Eosinophils # (Auto) September 09, 2022 2:21am 0.1 0-0.8 [facility] [id number] [address] [facility] [address] Basophils # (Auto) September 09, 2022 2:21am 0.1 0-0.1 [place] [id number] [address] [facility] [address] Nucleated Red Blood Cells # September 09, 2022 2:21am 0.00 0-0.01 [place] [id number] [address] [place] [address] Manual Differential September 09, 2022 2:21am Not Ind [facility] [id number] [address] [place] [address]69 Urine Source September 06, 2022 5:03pm URCATH [facility] [id number] [address] [place] [address] Urine Color September 06, 2022 5:03pm Yellow Yel-Sangita * [facility] [id number] [address] [place] [address]35 Urine Appearance September 06, 2022 5:03pm Clear Clear * [facility] [id number] [address] [place] [address]84 Urine pH September 06, 2022 5:03pm 6.0 5.0-8.0 [facility] [id number] [address] [place] [address] Urine Specific [place] September 06, 2022 5:03pm > 1.030 1.005-1.03 0 A specific gravity of 1.030 or greater may be caused by the following conditions:Clini fatemeh: Dehydration (diarrhea, excess sweating, vomiting, water restriction) Glucosuria Heart Failure Renal arterial stenosis SIADH (Syndrome of inappropriate antidiuretic hormone secretion)Drug related: I.V. Dextran I.V. Sucrose Radiographic contrast medium [facility] [id number] [address] [place] [address] Urine Protein September 06, 2022 5:03pm 100 Negative * [facility] [id number] [address] [facility] [address] Urine Glucose (UA) September 06, 2022 5:03pm Negative Negative * [facility] [id number] [address] [facility] 125[address] Urine Ketones September 06, 2022 5:03pm 20 Negative * [facility] [id number] [address] [place] [address] 31098 Urine Occult Blood September 06, 2022 5:03pm Negative Negative * [facility] [id number] [address] [place] [address] 14821 Urine Nitrite September 06, 2022 5:03pm Negative Negative [facility] [id number] [address] [place] [address]45[address] Urine Bilirubin September 06, 2022 5:03pm Negative Negative [facility] [id number] [address] [place] [address]32[address] Urine Urobilinogen September 06, 2022 5:03pm Negative 0.0-1.0 [facility] [id number] [address] [place] [address] 77346 Urine Leukocyte Esterase September 06, 2022 5:03pm 75 Negative [facility] [id number] [address] [place] [address] 8[address]99 Microscopic Urinalysis (T) September 06, 2022 5:03pm ----- [facility] [id number] [address] [place] [address] 95174 Urine RBC September 06, 2022 5:03pm 3-10 0-2 [facility] [id number] [address] [place] [address] 63459 Urine WBC September 06, 2022 5:03pm 21-40 0-5 [facility] [id number] [address] [place] [address] 56832 Urine Epithelial Cells September 06, 2022 5:03pm None Seen Few [facility] [id number] [address] [place] [address] 53397 Urine Crystals September 06, 2022 5:03pm None Seen None * [facility] [id number] [address] [facility] [address] Urine Bacteria September 06, 2022 5:03pm Few None [facility] [id number] [address] [place] [address] Urine Casts September 06, 2022 5:03pm Present None * [facility] [id number] [address] [facility] [address] Urine Hyaline Casts September 06, 2022 5:03pm >20 0-1 [facility] [id number] [address] [facility] [facility] [address] Urine Yeast September 06, 2022 5:03pm None Seen None [facility] [id number] [address] [facility] [address] Urinalysis Comment September 06, 2022 5:03pm * * Ref Range = * Clinical evaluation required. [facility] [id number] [address] [facility] [address] Urine Culture Indicated September 06, 2022 5:03pm To follow [facility] [id number] [address] [facility] [address] Sodium Level September 14, 2022 9:30am 134 136-145 [facility] [id number] [address] [facility] [address] Potassium Level September 14, 2022 9:30am 3.1 3.5-5.1 [facility] [id number] [address] [facility] [address] Chloride Level September 14, 2022 9:30am 93 98-107 [facility] [id number] [address] [facility] [address] Carbon Dioxide Level September 14, 2022 9:30am 32 23-31 [facility] [id number] [address] [facility] [address] Anion Gap September 14, 2022 9:30am 12 8-18 [facility] [id number] [address] [facility] 215[address] Blood Urea Nitrogen September 14, 2022 9:30am 28 10-20 [facility] [id number] [address] [facility] [address] Creatinine September 14, 2022 9:30am 1.0 0.6-1.1 [facility] [id number] [address] [facility] [address]35[address] Estimat Glomerular Filtration Rate September 14, 2022 [...] Americans, multiply the result provided by 1.21. [facility] [id number] [address] [facility] [address] Glucose Level September 14, 2022 9:30am 139 60-100 [facility] [id number] [address] [place] [address] Calcium Level September 14, 2022 9:30am 10.1 8.4-10.2 [facility] [id number] [address] [place] [address] 38082 Phosphorus Level September 07, 2022 12:09am 3.7 2.3-4.7 [facility] [id number] [address] [place] [address] Magnesium Level September 09, 2022 2:21am 1.63 1.60-2.60 [facility] [id number] [address] [place] [address] 48351 Total Bilirubin September 09, 2022 2:21am 1.2 0.2-1.2 [facility] [id number] [address] [place] [address] 15976 Aspartate Amino Transf (AST/SGOT) September 09, 2022 2:21am 12 5-34 [facility] [id number] [address] [place] [address] 23513 Alanine Aminotransfera se (ALT/SGPT) September 09, 2022 2:21am 11 0-55 [facility] [id number] [address] [place] [address] 59003 Total Protein September 09, 2022 2:21am 5.6 5.8-7.6 [facility] [id number] [address] [place] [address] 88412 Albumin September 09, 2022 2:21am 3.1 3.2-4.7 [facility] [id number] [address] [place] [address]227 Alkaline Phosphatase September 09, 2022 2:21am 52 40-150 [facility] [id number] [address] [place] [address]251 Cholesterol Level September 06, 2022 4:05am 113 < 200 Note: I-Lbktq-K-Cystei ne can cause falsely low measurements of cholesterol. Correlation with patient's medication history is recommended. [facility] [id number] [address] [place] [address]67 Triglycerides Level September 06, 2022 4:05am 91 < 150 Note: S-Ifhmv-D-Cystei ne can cause falsely low measurements of triglycerides. Correlation with patient's medication history is recommended. [facility] [id number] [address] [place] [address]198 HDL Cholesterol September 06, 2022 4:05am 29 40-60 Note: V-Rkrzc-Y-Cystei ne at elevated concentrations may lead to falsely low measurements of HDL. Correlation with patient's medication history is recommended. [facility] [id number] [address] [place] [address] 91558 LDL Cholesterol September 06, 2022 4:05am 66 0-99 [facility] [id number] [address] [place] [address] Cholesterol/HD L Ratio September 06, 2022 4:05am [...] is optimized with 8-10 Hrs pretesting fast. [facility] [id number] [address] [place] [address]36 Cholesterol Ratio (LDL/HDL) September 06, 2022 4:05am 2.3 [facility] [id number] [address] [place] [address]67 Hemoglobin A1c September 06, 2022 4:05am 4.4 <5.7 Hemoglobin A1C (%) Glycemic Goal < 8.0 Less stringent < 7.0 General (non- adults) < 6.5 More [id number] values above 6.5 % are an indication of hyperglycemia during the preceding 2 to 3 months or longer. According to the recommendations of the ADA. HbA1c values above 6.5 % are suitable for the diagnosis of diabetes mellitus. Patients with HbA1c values in the range of 5.7 - 6.4 % may be at risk of developing diabetes. [facility] [id number] [address] [place] [address] Bedside Glucose September 14, 2022 11:32am 148 60-100 [facility] [id number] [address] [place] [address] 52652 Microbiology Results Procedure Source Result Collection Date/Time Result Date/Time Result Comment Performing Site Urine Culture Urine Catheterized No growth September 06, 2022 5:03pm September 08, 2022 7:30am [facility] [id number] [address] [place] [address] Diagnostic Imaging Reports Report Dictated Date/Time Dictated [...] Date Dictated: 09/06/22 0509 Signed by: SRIKANTH MOSRE MD Date Signed: 09/06/22509 Report Dictated Date/Time [...] 97.6-99.5 September 06, 2 023 3:13pm Weight 73.452812 kg September 05, 2022 6:00pm BMI (Body Mass Index) 25.4 kg/m2 September 052022 6:00pm Advance Directives Advance Directive Response Recorded Date/ Time Does the Patient have an Advance Directive? No September 05, 2022 6:00pm Insurance Providers Guarantor David Sheridan Address [address] [place] [id number] Contact Info. 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 Pt/Fm/Caregiver Expressed Understanding of Portal Enrollment: Yes Pt/Family/Caregiver Received Discharge Home Medication List: Yes Prescription(s) Given: Comment: RX FOR PAIN MEDS SENT TO [facility] [place] Discharge Care Plan #1 Problem: Pain Goal: [...]
[2023-04-23 09:44] LABS: HCT 34.7 % (36.0-46.0); HGB 10.8 g/dL (11.2-15.7); MCH 24.4 pg (27.0-33.0); MCHC 31.1 % (32.0-36.0); MCV 78 fL (80-95); MPV 10.5 fL (8.0-11.0); Platelet Count 345 10^3/uL (130-400); RBC 4.43 10^6/uL (3.93-5.22); RDW 16.3 % (11.7-14.6); RDW-SD 46.5 fL
[2023-04-23 11:15] LABS: ALT 23 U/L (14-59); AST 11 U/L (15-37); Albumin 3.4 g/dL (3.4-5.0); Alkaline Phosphatase 82 U/L (46-116); Anion Gap 10.1 mmol/L (3-11); BUN 13 mg/dL (7-18); Bilirubin, Total 0.4 mg/dL (0.2-1.0); CO2 28.9 mmol/L (21.0-32.0); CREATININE 1.1 mg/dL (0.55-1.02); Calcium 9.2 mg/dL (8.5-10.1); Calculated LDL 81 mg/dL (<100); Chloride 105 mmol/L (98-107); Cholesterol 133 mg/dL (<200); Estimated GFR 53.39 (mL/min/1.73m2); Glucose 97 mg/dL (74-106); HDL Cholesterol 36 mg/dL (40-60); Magnesium 1.7 mg/dL (1.8-2.4); Potassium 3.6 mmol/L (3.5-5.1); Sodium 144 mmol/L (136-145); Total Protein 7.1 g/dL (6.4-8.2); Triglyceride 81 mg/dL (<150)
== END 2023-04-23 03:48 | disposition home or self-care (01) ==
LOC: LBO 03:47
PROVIDERS: PCP Nurse Practitioner Family; Visit Provider Nurse Practitioner Family
DX: E83.42 Hypomagnesemia (principal); F10.21 Alcohol dependence, in remission; G47.00 Insomnia, unspecified; I10 Essential (primary) hypertension; I63.9 Cerebral infarction, unspecified; K21.9 Gastro-esophageal reflux disease without esophagitis; Z00.00 Encounter for general adult medical examination without abnormal findings
CPT/HCPCS: 36415; 80053; 80061; 85027; 83735

== ENCOUNTER 2023-06-21 01:10 | Outpatient (CLI) | payer OTHER, SELFPAY ==
[2023-06-21 12:06] LABS: Abs Immature Grans 0.02 10^3/uL (0.0-0.06); Absolute Basophil Count 0.08 10^3/uL (0.0-0.2); Absolute Eosinophil Count 0.12 10^3/uL (0.0-0.7); Absolute Lymphocyte Count 1.51 10^3/uL (1.2-3.4); Absolute Monocyte Count 0.63 10^3/uL (0.1-0.8); Absolute Neutrophil Count 5.64 10^3/uL (1.2-6.7); Eosinophils % 1.5; HCT 39.2 % (36.0-46.0); HGB 12.1 g/dL (11.2-15.7); Immature Grans % 0.3; Lymphocytes % 18.9; MCH 24.7 pg (27.0-33.0); MCHC 30.9 % (32.0-36.0); MCV 80 fL (80-95); MPV 11.6 fL (8.0-11.0); Monocytes % 7.9; Neutrophils % 70.4; Platelet Count 260 10^3/uL (130-400); RBC 4.89 10^6/uL (3.93-5.22); RDW 17.9 % (11.7-14.6); RDW-SD 52.5 fL
[2023-06-21 12:20] LABS: ALT 15 U/L (14-59); AST 14 U/L (15-37); Alkaline Phosphatase 96 U/L (46-116); Anion Gap 10.6 mmol/L (3-11); BUN 25 mg/dL (7-18); Bilirubin, Total 0.7 mg/dL (0.2-1.0); CO2 27.4 mmol/L (21.0-32.0); CREATININE 1.5 mg/dL (0.55-1.02); Calcium 9.7 mg/dL (8.5-10.1); Chloride 105 mmol/L (98-107); Glucose 97 mg/dL (74-106); Potassium 3.4 mmol/L (3.5-5.1); Sodium 143 mmol/L (136-145); Total Protein 7.4 g/dL (6.4-8.2)
== END 2023-06-21 01:11 | disposition home or self-care (01) ==
LOC: LOS 01:10
PROVIDERS: PCP Nurse Practitioner Family; Visit Provider Nurse Practitioner Family
DX: D64.9 Anemia, unspecified (principal); I10 Essential (primary) hypertension; E83.42 Hypomagnesemia
CPT/HCPCS: 36415; 80053; 83735; 85025

== ENCOUNTER → 2023-08-07 13:04 | Outpatient (CLI) | payer OTHER, SELFPAY ==
--- NOTE | 2023-08-07 11:45 | DI.RAD_ITS ---
Exam(s) XR HAND LT COMPLETE EXAM: XR HAND LT COMPLETE CLINICAL HISTORY: pain swelling stiffness left third mcpj, lt hand pain, M79.642. TECHNIQUE: 2D digital imaging was performed of the left hand. Three views were obtained. AP, later al and oblique views were obtained. COMPARISON: No exams were available for comparison FINDINGS: BONES: No acute fracture is present. No bony destructive lesion is seen. JOINTS: No dislocation present. There are marked degenerative changes seen at the 1st CMC joint aurelio cterized by joint space narrowing and osteophytes. Lesser degenerative changes are seen in the inter phalangeal joints of the fingers. The metacarpophalangeal joints are well maintained. There is a be nign-appearing cyst seen in the trapezoid bone. SOFT TISSUE: Normal. 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 DATA REPOSITORY: RADIATION DOSE DELIVERED:
--- NOTE | 2023-08-07 11:45 | DI.RAD_ITS ---
Exam(s) XR KNEE LT 3V AP,LAT,ODALYS EXAM: XR KNEE LT 3V AP,LAT,ODALYS CLINICAL HISTORY: painful popliteal cyst left knee posterior, lt knee pain, M25.562. TECHNIQUE: 2D digital imaging was performed of the left knee. Three images were obtained. AP, late ral and PA tunnel views were obtained. COMPARISON: CR LEFT KNEE 3 VIEW COMPLETE from 07/30/2011 FINDINGS: BONES: No acute fracture is present. No bony destructive lesion is seen. There is an enthesophyte at the superior patella. JOINTS: There is marked narrowing of the lateral femoral tibial joint. There are osteophytes involvi ng all 3 joint compartments. There is no significant joint effusion. No loose body. SOFT TISSUE: Vascular calcifications are seen in the soft tissues. IMPRESSION: Marked osteoarthritis of the left knee. DATA REPOSITORY: RADIATION DOSE DELIVERED:
== END ==
PROVIDERS: PCP Nurse Practitioner Family; Visit Provider Physician Assistant Medical
DX: M79.642 Pain in left hand (principal); M25.562 Pain in left knee
CPT/HCPCS: 73562; 73130

== ENCOUNTER 2023-08-16 05:02 | Outpatient (CLI) | payer OTHER, SELFPAY ==
[2023-08-16 12:29] LABS: Anion Gap 11.7 mmol/L (3-11); BUN 21 mg/dL (7-18); CO2 25.3 mmol/L (21.0-32.0); CREATININE 1.2 mg/dL (0.55-1.02); Calcium 9.2 mg/dL (8.5-10.1); Chloride 106 mmol/L (98-107); Estimated GFR 48.09 (mL/min/1.73m2); Glucose 94 mg/dL (74-106); Potassium 3.7 mmol/L (3.5-5.1); Sodium 143 mmol/L (136-145)
== END 2023-08-16 05:03 | disposition home or self-care (01) ==
LOC: LOS 05:03
PROVIDERS: PCP Nurse Practitioner Family; Visit Provider Nurse Practitioner Family
DX: I10 Essential (primary) hypertension (principal); E87.6 Hypokalemia
CPT/HCPCS: 36415; 80048

== ENCOUNTER → 2023-10-10 00:42 | Outpatient (CLI) | payer OTHER, SELFPAY ==
--- OUTSIDE RECORDS SUMMARY | 2023-10-10 00:44 | XMS_ITS | Continuity of Care Document ---
Author Name Unknown Address Unknown Organization Unknown Address Unknown Care Team Providers Care Marketing Project Specialist Name Role Phone MD JOLENE SINGLETARY Admitting [...] September 14, 2022 7:35am Acetaminophen/H ydrocodone Bitart (Alger 5/325) 1 Each TAB Active 1-2 TAB PO Every 4 Hours as needed for Moderate To Severe Pain(4-10) 20 5 September 14, 2022 7:36am Amlodipine Besylate (Norvasc) 5 Mg TAB Active 5 MG PO Every Morning Cyclosporine (Restasis 0.05% Oph Emul) 1 Each DROPERETTE Active 1 DROP BOTH EYES Twice A Day 1 Fish Oil ([place] 3) 1,000 Mg CAP Active 1000 MG [...] screw, non-bioabsorbable, sterile September 06, 2022 SONIDO: ()[id number] Issuing Agency: [facility] Device Id: [id number] Expiration Date: 2032-01-13 Lot Number: [id number] Orthopaedic bone screw, non-bioabsorbable, sterile September 06, 2022 OSNIDO: ()[id number] Issuing Agency: [facility] Device Id: [id number] Expiration Date: 2031-11-21 Lot Number: [id number] Procedures Procedure Date Performed Status Open reduction [...] Count September 09, 2022 2:21am 9.2 4.5-11.5 [facility] [id number] [address] [place] [address] Red Blood Count September 09, 2022 2:21am 2.89 3.8-5.1 [facility] [id number] [address] [place] [address] Hemoglobin September 10, 2022 9:34am 8.2 12.0-15.2 [facility] [id number] [address] [place] [address] Hematocrit September 10, 2022 9:34am 25.1 34.0-45.5 [facility] [id number] [address] [place] [address] Mean Corpuscular Volume September 10, 2022 9:34am 91 80-94 [facility] [id number] [address] [place] [address] Mean Corpuscular Hemoglobin September 10, 2022 9:34am 29.6 27.0-33.0 [facility] [id number] [address] [place] [address] Mean Corpuscular Hemoglobin Concent September 10, 2022 9:34am 32.7 33.0-37.0 [facility] [id number] [address] [place] [address] Red Cell Distribution Width September 09, 2022 2:21am 12.9 10.7-14.5 [facility] [id number] [address] [place] [address] Platelet Count September 09, 2022 2:21am 229 150-450 [facility] [id number] [address] [place] [address] Mean Platelet Volume September 09, 2022 2:21am 11.3 5.7-10.7 [facility] [id number] 2830 [facility] [address] Neutrophils (%) (Auto) September 09, 2022 2:21am 75 47-75 [facility] [id number] 2830 [facility] 29047 Immature Granulocyte % (Auto) September 09, 2022 2:21am 1 0-0 [facility] [id number] 2830 [facility] 36[address] Lymphocytes (%) (Auto) September 09, 2022 2:21am 14 25-44 [facility] [id number] 2830 [facility] 12151 Monocytes (%) (Auto) September 09, 2022 2:21am 9 3-10 [facility] [id number] 2830 [facility] [address]78[address] Eosinophils (%) (Auto) September 09, 2022 2:21am 1 0-7 [facility] [id number] [address] [place] [address] Basophils (%) (Auto) September 09, 2022 2:21am 1 0-1 [facility] [id number] 2830 [facility] 8[address] Nucleated Red Blood Cells % September 09, 2022 2:21am 0.0 0-0.2 [facility] [id number] 2830 [facility] 14039 Neutrophils # (Auto) September 09, 2022 2:21am 6.9 1.3-6.7 [place] [id number] [address] [place] [address] 85684 Immature Granulocyte # (Auto) September 09, 2022 2:21am 0.1 0.0-0.0 [place] [id number] [address] [place] [address] 12376 Lymphocytes # (Auto) September 09, 2022 2:21am 1.2 1.4-4.1 [place] [id number] 2830 [facility] 94303 Monocytes # (Auto) September 09, 2022 2:21am 0.8 0-1.3 [facility] [id number] 2830 [facility] 8[address] Eosinophils # (Auto) September 09, 2022 2:21am 0.1 0-0.8 [facility] [id number] 2830 [facility] 87306 Basophils # (Auto) September 09, 2022 2:21am 0.1 0-0.1 [place] [id number] 2830 [facility] 11593 Nucleated Red Blood Cells # September 09, 2022 2:21am 0.00 0-0.01 [place] [id number] [address] [place] [address] Manual Differential September 09, 2022 2:21am Not Ind [facility] [id number] [address] [place] [address]647 Urine Source September 06, 2022 5:03pm URCATH [facility] [id number] [address] [place] [address] 62767 Urine Color September 06, 2022 5:03pm Yellow Yel-Sangita * [facility] [id number] [address] [place] [address] 98916 Urine Appearance September 06, 2022 5:03pm Clear Clear * [facility] [id number] [address] [place] [address] 80984 Urine pH September 06, 2022 5:03pm 6.0 5.0-8.0 [facility] [id number] [address] [place] [address] 65518 Urine Specific [place] September 06, 2022 5:03pm > 1.030 1.005-1.03 0 A specific gravity of 1.030 or greater may be caused by the following conditions:Clini fatemeh: Dehydration (diarrhea, excess sweating, vomiting, water restriction) Glucosuria Heart Failure Renal arterial stenosis SIADH (Syndrome of inappropriate antidiuretic hormone secretion)Drug related: I.V. Dextran I.V. Sucrose Radiographic contrast medium [facility] [id number] [address] [place] [address] 25865 Urine Protein September 06, 2022 5:03pm 100 Negative * [facility] [id number] 2830 [facility] [address] Urine Glucose (UA) September 06, 2022 5:03pm Negative Negative * [facility] [id number] 2830 [facility] [address]26[address] Urine Ketones September 06, 2022 5:03pm 20 Negative * [facility] [id number] [address] [place] [address] 47914 Urine Occult Blood September 06, 2022 5:03pm Negative Negative * [facility] [id number] [address] [place] [address] 58312 Urine Nitrite September 06, 2022 5:03pm Negative Negative [facility] [id number] [address] [place] [address] 68179 Urine Bilirubin September 06, 2022 5:03pm Negative Negative [facility] [id number] [address] [place] [address] 93842 Urine Urobilinogen September 06, 2022 5:03pm Negative 0.0-1.0 [facility] [id number] [address] [place] [address] 18812 Urine Leukocyte Esterase September 06, 2022 5:03pm [address] [facility] [id number] [address] [place] [address] 10737 Microscopic Urinalysis (T) September 06, 2022 5:03pm ----- [facility] [id number] [address] [place] [address] 73772 Urine RBC September 06, 2022 5:03pm 3-10 0-2 [facility] [id number] [address] [place] [address] 90333 Urine WBC September 06, 2022 5:03pm 21-40 0-5 [facility] [id number] [address] [place] [address] 12716 Urine Epithelial Cells September 06, 2022 5:03pm None Seen Few [facility] [id number] [address] [place] [address] 34607 Urine Crystals September 06, 2022 5:03pm None Seen None * [facility] [id number] [address] [facility] [address] Urine Bacteria September 06, 2022 5:03pm Few None [facility] [id number] [address] [place] [address] Urine Casts September 06, 2022 5:03pm Present None * [facility] [id number] [address] [facility] [address] Urine Hyaline Casts September 06, 2022 5:03pm >20 0-1 [facility] [id number] [address] [facility] [address] Urine Yeast September 06, 2022 5:03pm None Seen None [facility] [id number] [address] [facility] [address] Urinalysis Comment September 06, 2022 5:03pm * * Ref Range = * Clinical evaluation required. [facility] [id number] [address] [facility] [address] Urine Culture Indicated September 06, 2022 5:03pm To follow [facility] [id number] [address] [facility] [address] Sodium Level September 14, 2022 9:30am 134 136-145 [facility] [id number] 2830 [facility] [address] Potassium Level September 14, 2022 9:30am 3.1 3.5-5.1 [facility] [id number] 2830 [facility] [address] Chloride Level September 14, 2022 9:30am 93 98-107 [facility] [id number] 2830 [facility] 288[address] Carbon Dioxide Level September 14, 2022 9:30am 32 23-31 [facility] [id number] 2830 [facility] 69114 Anion Gap September 14, 2022 9:30am 12 8-18 [facility] [id number] 2830 [facility] 67506 Blood Urea Nitrogen September 14, 2022 9:30am 28 10-20 [facility] [id number] 2830 [facility] 948[address] Creatinine September 14, 2022 9:30am 1.0 0.6-1.1 [facility] [id number] 2830 [facility] 12752 Estimat Glomerular Filtration Rate September 14, 2022 [...] Americans, multiply the result provided by 1.21. [facility] [id number] 2830 [facility] 68048 Glucose Level September 14, 2022 9:30am 139 60-100 [facility] [id number] [address] [place] [address] 38176 Calcium Level September 14, 2022 9:30am 10.1 8.4-10.2 [facility] [id number] [address] [place] [address] 35013 Phosphorus Level September 07, 2022 12:09am 3.7 2.3-4.7 [facility] [id number] [address] [place] [address] 32622 Magnesium Level September 09, 2022 2:21am 1.63 1.60-2.60 [facility] [id number] [address] [place] [address] 53013 Total Bilirubin September 09, 2022 2:21am 1.2 0.2-1.2 [facility] [id number] [address] [place] [address] 93013 Aspartate Amino Transf (AST/SGOT) September 09, 2022 2:21am 12 5-34 [facility] [id number] [address] [place] [address] 20708 Alanine Aminotransfera se (ALT/SGPT) September 09, 2022 2:21am 11 0-55 [facility] [id number] [address] [place] [address] 63957 Total Protein September 09, 2022 2:21am 5.6 5.8-7.6 [facility] [id number] [address] [place] [address] 71403 Albumin September 09, 2022 2:21am 3.1 3.2-4.7 [facility] [id number] [address] [place] [address] 47607 Alkaline Phosphatase September 09, 2022 2:21am 52 40-150 [facility] [id number] [address] [place] [address] 34513 Cholesterol Level September 06, 2022 4:05am 113 < 200 Note: U-Qioyl-Q-Cystei ne can cause falsely low measurements of cholesterol. Correlation with patient's medication history is recommended. [facility] [id number] [address] [place] [address] 16786 Triglycerides Level September 06, 2022 4:05am 91 < 150 Note: X-Xethq-Z-Cystei ne can cause falsely low measurements of triglycerides. Correlation with patient's medication history is recommended. [facility] [id number] [address] [place] [address] 76387 HDL Cholesterol September 06, 2022 4:05am 29 40-60 Note: L-Wjyuj-Q-Cystei ne at elevated concentrations may lead to falsely low measurements of HDL. Correlation with patient's medication history is recommended. [facility] [id number] [address] [place] [address] 40956 LDL Cholesterol September 06, 2022 4:05am 66 0-99 [facility] [id number] [address] [place] [address]12 Cholesterol/HD L Ratio September 06, 2022 4:05am [...] is optimized with 8-10 Hrs pretesting fast. [facility] [id number] [address] [place] [address] 54617 Cholesterol Ratio (LDL/HDL) September 06, 2022 4:05am 2.3 [facility] [id number] [address] [place] [address] 87810 Hemoglobin A1c September 06, 2022 4:05am 4.4 <5.7 Hemoglobin A1C (%) Glycemic Goal < 8.0 Less stringent < 7.0 General (non- adults) < 6.5 More gxqhfreydPcY3o values above 6.5 % are an indication of hyperglycemia during the preceding 2 to 3 months or longer. According to the recommendations of the ADA. HbA1c values above 6.5 % are suitable for the diagnosis of diabetes mellitus. Patients with HbA1c values in the range of 5.7 - 6.4 % may be at risk of developing diabetes. [facility] [id number] [address] [place] [address] 82664 Bedside Glucose September 14, 2022 11:32am 148 60-100 [facility] [id number] [address] [place] [address] 72473 Microbiology Results Procedure Source Result Collection Date/Time Result Date/Time Result Comment Performing Site Urine Culture Urine Catheterized No growth September 06, 2022 5:03pm September 08, 2022 7:30am [facility] [id number] [address] [place] [address]37 Diagnostic Imaging Reports Report Dictated Date/Time Dictated [...] 97.6-99.5 September 06, 2 023 3:13pm Weight 73.574939 kg September 05, 2022 6:00pm BMI (Body Mass Index) 25.4 kg/m2 September 052022 6:00pm Advance Directives Advance Directive Response Recorded Date/ Time Does the Patient have an Advance Directive? No September 05, 2022 6:00pm Insurance Providers Guarantor David Sheridan Address [address] [place] [address] Contact Info. Home Phone: Payer Policy Id Coverage Id Subscriber's Name Subscriber Id Effective Date Expiration Date [facility] [id number] David Sheridan [id number] 2022 Encounters Encounter Location(s) Arrival/Admit Date Discharge/Depart Date [facility]) [facility] 6[facility] September 14, 2022 [...] ROM of Tolerate CPM to Demonstrate hand traffic representative Demonstrate improved strengt h of Increase pinch [...] WITH DR WHARTON IN THE OFFICE AT [place] [facility] IN 1 WEEK.PLEASE CALL OFFICE ON SATURDAY FOR APPOINTMENT.[phone] AMBULATE WITH ROLLING WALKER WEIGHT BEARING TOLERATED LEFT LEG FALL PRECAUTIONS HIP PRECAUTIONS CALL FOR PAIN UNRELIEVED BY PAIN MEDS,SUDDEN ONSET OF SEVERE PAIN,EXCESSIVE DRAIANGE,FOUL SMELLING DRAINAGE,REDNESS,SWELLING OR SEPARATION OF INCISION OR ANY OTHER SYMPTOM OF CONCERN. Pt/Fm/Caregiver Expressed Understanding of Portal Enrollment: Yes Pt/Family/Caregiver Received Discharge Home Medication List: Yes Prescription(s) Given: Comment: RX FOR PAIN MEDS SENT TO [facility] [place] Discharge Care Plan #1 Problem: Pain Goal: [...]
--- OUTSIDE RECORDS SUMMARY | 2023-10-10 00:44 | XMS_ITS | Continuity of Care Document ---
Author Name Unknown Address Unknown Organization Unknown Address Unknown Care Team Providers Care Quality Control Expert Name Role Phone MD JOLENE SINGLETARY Admitting [...] September 14, 2022 7:35am Acetaminophen/H ydrocodone Bitart ([place] 5/325) 1 Each TAB Active 1-2 TAB PO Every 4 Hours as needed for Moderate To Severe Pain(4-10) 20 5 September 14, 2022 7:36am Amlodipine Besylate (Norvasc) 5 Mg TAB Active 5 MG PO Every Morning Cyclosporine (Restasis 0.05% Oph Emul) 1 Each DROPERETTE Active 1 DROP BOTH EYES Twice A Day 1 Fish Oil (Beverly 3) 1,000 Mg CAP Active 1000 MG [...] screw, non-bioabsorbable, sterile September 06, 2022 SONIDO: [id number] Issuing Agency: [facility] Device Id: [id number] Expiration Date: 2032-01-13 Lot Number: [id number] Orthopaedic bone screw, non-bioabsorbable, sterile September 06, 2022 SONIDO: ()[id number] Issuing Agency: [facility] Device Id: [id number] Expiration Date: 2031-11-21 Lot Number: [id number] Procedures Procedure Date Performed Status Open reduction [...] Count September 09, 2022 2:21am 9.2 4.5-11.5 [facility] [id number] [address] [place] [address] Red Blood Count September 09, 2022 2:21am 2.89 3.8-5.1 [facility] [id number] [address] [place] [address] Hemoglobin September 10, 2022 9:34am 8.2 12.0-15.2 [facility] [id number] [address] [place] [address] Hematocrit September 10, 2022 9:34am 25.1 34.0-45.5 [facility] [id number] [address] [place] [address] Mean Corpuscular Volume September 10, 2022 9:34am 91 80-94 [facility] [id number] [address] [place] [address] Mean Corpuscular Hemoglobin September 10, 2022 9:34am 29.6 27.0-33.0 [facility] [id number] [address] [place] [address] Mean Corpuscular Hemoglobin Concent September 10, 2022 9:34am 32.7 33.0-37.0 [facility] [id number] [address] [place] [address] Red Cell Distribution Width September 09, 2022 2:21am 12.9 10.7-14.5 [facility] [id number] [address] [place] [address] Platelet Count September 09, 2022 2:21am 229 150-450 [facility] [id number] [address] [place] [address] Mean Platelet Volume September 09, 2022 2:21am 11.3 5.7-10.7 [facility] [id number] 2830 [facility] [address] Neutrophils (%) (Auto) September 09, 2022 2:21am 75 47-75 [facility] [id number] 2830 [facility] 265[address] Immature Granulocyte % (Auto) September 09, 2022 2:21am 1 0-0 [facility] [id number] 2830 [facility] 9[address] Lymphocytes (%) (Auto) September 09, 2022 2:21am 14 25-44 [facility] [id number] 2830 [facility] [address] Monocytes (%) (Auto) September 09, 2022 2:21am 9 3-10 [facility] [id number] 2830 [facility] 085[address] Eosinophils (%) (Auto) September 09, 2022 2:21am 1 0-7 [facility] [id number] [address] [place] [address] Basophils (%) (Auto) September 09, 2022 2:21am 1 0-1 [facility] [id number] 2830 [facility] 9[address] Nucleated Red Blood Cells % September 09, 2022 2:21am 0.0 0-0.2 [facility] [id number] 2830 [facility] [address] Neutrophils # (Auto) September 09, 2022 2:21am 6.9 1.3-6.7 [place] [id number] [address] [place] [address] Immature Granulocyte # (Auto) September 09, 2022 2:21am 0.1 0.0-0.0 [place] [id number] [address] [place] [address] Lymphocytes # (Auto) September 09, 2022 2:21am 1.2 1.4-4.1 [place] [id number] 2830 [facility] [address] Monocytes # (Auto) September 09, 2022 2:21am 0.8 0-1.3 [facility] [id number] 2830 [facility] [address] Eosinophils # (Auto) September 09, 2022 2:21am 0.1 0-0.8 [facility] [id number] 2830 [facility] [address] Basophils # (Auto) September 09, 2022 2:21am 0.1 0-0.1 [place] [id number] 2830 [facility] 24027 Nucleated Red Blood Cells # September 09, 2022 2:21am 0.00 0-0.01 [place] [id number] [address] [address] Manual Differential September 09, 2022 2:21am Not Ind [facility] [id number] [address] [address] Urine Source September 06, 2022 5:03pm URCATH [facility] [id number] [address] [address] Urine Color September 06, 2022 5:03pm Yellow Yel-Sangita * [facility] [id number] [address] [address] Urine Appearance September 06, 2022 5:03pm Clear Clear * [facility] [id number] [address] [place] [address] Urine pH September 06, 2022 5:03pm 6.0 5.0-8.0 [facility] [id number] [address] [place] [address] Urine Specific [place] September 06, 2022 5:03pm > 1.030 1.005-1.03 0 A specific gravity of 1.030 or greater may be caused by the following conditions:Clini fatemeh: Dehydration (diarrhea, excess sweating, vomiting, water restriction) Glucosuria Heart Failure Renal arterial stenosis SIADH (Syndrome of inappropriate antidiuretic hormone secretion)Drug related: I.V. Dextran I.V. Sucrose Radiographic contrast medium [facility] [id number] [address] [address] Urine Protein September 06, 2022 5:03pm 100 Negative * [facility] [id number] 2830 [facility] 85653 Urine Glucose (UA) September 06, 2022 5:03pm Negative Negative * [facility] [id number] 2830 [facility] 750[address] Urine Ketones September 06, 2022 5:03pm 20 Negative * [facility] [id number] [address] [place] [address] 53650 Urine Occult Blood September 06, 2022 5:03pm Negative Negative * [facility] [id number] [address] [place] [address] 30911 Urine Nitrite September 06, 2022 5:03pm Negative Negative [facility] [id number] [address] [place] [address] 77484 Urine Bilirubin September 06, 2022 5:03pm Negative Negative [facility] [id number] [address] [place] [address] Urine Urobilinogen September 06, 2022 5:03pm Negative 0.0-1.0 [facility] [id number] [address] [place] [address] 43348 Urine Leukocyte Esterase September 06, 2022 5:03pm 75 Negative [facility] [id number] [address] [place] [address]37 Microscopic Urinalysis (T) September 06, 2022 5:03pm ----- [facility] [id number] [address] [place] [address] 50974 Urine RBC September 06, 2022 5:03pm 3-10 0-2 [facility] [id number] [address] [place] [address] 27056 Urine WBC September 06, 2022 5:03pm 21-40 0-5 [facility] [id number] [address] [place] [address] 24797 Urine Epithelial Cells September 06, 2022 5:03pm None Seen Few [facility] [id number] [address] [place] [address] Urine Crystals September 06, 2022 5:03pm None Seen None * [facility] [id number] [address] [place] [address] Urine Bacteria September 06, 2022 5:03pm Few None [facility] [id number] [address] [place] [address] Urine Casts September 06, 2022 5:03pm Present None * [facility] [id number] [address] [place] [address] Urine Hyaline Casts September 06, 2022 5:03pm >20 0-1 [facility] [id number] [address] [facility] [address] Urine Yeast September 06, 2022 5:03pm None Seen None [facility] [id number] [address] [facility] [address] Urinalysis Comment September 06, 2022 5:03pm * * Ref Range = * Clinical evaluation required. [facility] [id number] [address] [facility] [address] Urine Culture Indicated September 06, 2022 5:03pm To follow [facility] [id number] [address] [facility] [address] Sodium Level September 14, 2022 9:30am 134 136-145 [facility] [id number] 2830 [facility] [address] Potassium Level September 14, 2022 9:30am 3.1 3.5-5.1 [facility] [id number] 2830 [facility] [address] Chloride Level September 14, 2022 9:30am 93 98-107 [facility] [id number] 2830 [facility] 62636 Carbon Dioxide Level September 14, 2022 9:30am 32 23-31 [facility] [id number] 2830 [facility] [address] Anion Gap September 14, 2022 9:30am 12 8-18 [facility] [id number] 2830 [facility] 119[address] Blood Urea Nitrogen September 14, 2022 9:30am 28 10-20 [facility] [id number] 2830 [facility] [address] Creatinine September 14, 2022 9:30am 1.0 0.6-1.1 [facility] [id number] 2830 [facility] [address] Estimat Glomerular Filtration Rate September 14, 2022 [...] Americans, multiply the result provided by 1.21. [facility] [id number] 2830 [facility] [address] Glucose Level September 14, 2022 9:30am 139 60-100 [facility] [id number] [address] [place] [address]662 Calcium Level September 14, 2022 9:30am 10.1 8.4-10.2 [facility] [id number] [address] [address] Phosphorus Level September 07, 2022 12:09am 3.7 2.3-4.7 [facility] [id number] [address] [place] [address]772 Magnesium Level September 09, 2022 2:21am 1.63 1.60-2.60 [facility] [id number] [address] [address] Total Bilirubin September 09, 2022 2:21am 1.2 0.2-1.2 [facility] [id number] [address] [address] Aspartate Amino Transf (AST/SGOT) September 09, 2022 2:21am 12 5-34 [facility] [id number] [address] [address] 11810 Alanine Aminotransfera se (ALT/SGPT) September 09, 2022 2:21am 11 0-55 [facility] [id number] [address] [place] [address]34 Total Protein September 09, 2022 2:21am 5.6 5.8-7.6 [facility] [id number] [address] [place] [address] 13321 Albumin September 09, 2022 2:21am 3.1 3.2-4.7 [facility] [id number] [address] [place] [address] 90504 Alkaline Phosphatase September 09, 2022 2:21am 52 40-150 [facility] [id number] [address] [place] [address] Cholesterol Level September 06, 2022 4:05am 113 < 200 Note: H-Qskxi-K-Cystei ne can cause falsely low measurements of cholesterol. Correlation with patient's medication history is recommended. [facility] [id number] [address] [place] [address] Triglycerides Level September 06, 2022 4:05am 91 < 150 Note: C-Lgdsg-V-Cystei ne can cause falsely low measurements of triglycerides. Correlation with patient's medication history is recommended. [facility] [id number] [address] [place] [address] 55181 HDL Cholesterol September 06, 2022 4:05am 29 40-60 Note: Q-Flqni-I-Cystei ne at elevated concentrations may lead to falsely low measurements of HDL. Correlation with patient's medication history is recommended. [facility] [id number] [address] [place] [address] 53774 LDL Cholesterol September 06, 2022 4:05am 66 0-99 [facility] [id number] [address] [address]758 Cholesterol/HD L Ratio September 06, 2022 4:05am [...] is optimized with 8-10 Hrs pretesting fast. [facility] [id number] [address] [place] [address] 89365 Cholesterol Ratio (LDL/HDL) September 06, 2022 4:05am 2.3 [facility] [id number] [address] [address]17 Hemoglobin A1c September 06, 2022 4:05am 4.4 <5.7 Hemoglobin A1C (%) Glycemic Goal < 8.0 Less stringent < 7.0 General (non- adults) < 6.5 More aqxhyveomGeR0b values above 6.5 % are an indication of hyperglycemia during the preceding 2 to 3 months or longer. According to the recommendations of the ADA. HbA1c values above 6.5 % are suitable for the diagnosis of diabetes mellitus. Patients with HbA1c values in the range of 5.7 - 6.4 % may be at risk of developing diabetes. [facility] [id number] [address] [place] [address]17 Bedside Glucose September 14, 2022 11:32am 148 60-100 [facility] [id number] [address] [place] [address]28 Microbiology Results Procedure Source Result Collection Date/Time Result Date/Time Result Comment Performing Site Urine Culture Urine Catheterized No growth September 06, 2022 5:03pm September 08, 2022 7:30am [facility] [id number] [address] [place] [address]478 Diagnostic Imaging Reports Report Dictated Date/Time Dictated [...] 97.6-99.5 September 06, 2 023 3:13pm Weight 73.509000 kg September 05, 2022 6:00pm BMI (Body Mass Index) 25.4 kg/m2 September 052022 6:00pm Advance Directives Advance Directive Response Recorded Date/ Time Does the Patient have an Advance Directive? No September 05, 2022 6:00pm Insurance Providers Guarantor David Sheridan Address [address] [place] [id number] Contact Info. Home Phone: Payer Policy Id Coverage Id Subscriber's Name Subscriber Id Effective Date Expiration Date [facility] [id number] David Sheridan [id number] 2022 Encounters Encounter Location(s) Arrival/Admit Date Discharge/Depart Date [facility]) [facility] 6:22pm September 14, 2022 [...] ROM of Tolerate CPM to Demonstrate hand intelligence applications Demonstrate improved strengt h of Increase pinch [...] WITH DR WHARTON IN THE OFFICE AT [place] [facility] IN 1 WEEK.PLEASE CALL OFFICE ON SATURDAY FOR APPOINTMENT.[phone] AMBULATE WITH ROLLING WALKER WEIGHT BEARING TOLERATED LEFT LEG FALL PRECAUTIONS HIP PRECAUTIONS CALL FOR PAIN UNRELIEVED BY PAIN MEDS,SUDDEN ONSET OF SEVERE PAIN,EXCESSIVE DRAIANGE,FOUL SMELLING DRAINAGE,REDNESS,SWELLING OR SEPARATION OF INCISION OR ANY OTHER SYMPTOM OF CONCERN. Pt/Fm/Caregiver Expressed Understanding of Portal Enrollment: Yes Pt/Family/Caregiver Received Discharge Home Medication List: Yes Prescription(s) Given: Comment: RX FOR PAIN MEDS SENT TO [facility] IN [place] Discharge Care Plan #1 Problem: Pain Goal: [...]
--- NOTE | 2023-10-10 07:00 | DI.NM_ITS ---
APPROVED REPORT Exam: Pharmacologic Patient Location: Out-Patient Room/Bed: Stress Nurse: Magdalena Rose RN and Mitul Bautista RN Ordering Provider:LUCIO MOLINA, Contact Number: [phone] BMI: 26.46 Baseline Rhythm: Sinus Rhythm; First Degree AV Block. Comment: Rare PAC. Indications: ST changes on EKG during ER visit in [place]; Abnormal EKG. Medical History Medical History: CVA; GERD; Hyperlipidemia; Hypertension; EF 58 percent; OA. Cardiac Medications: Amlodipine; Atorvastatin; Losartan. Allergies: None. Cardiac Risk Factors: Hyperlipidemia; Hypertension. Previous Cardiac Procedures: None. Pretest Chest Pain Characteristics: None. Exercise History: Indeterminate. Physical Disabilities: Ambulates with a cane. Lung Sounds: Clear bilaterally throughout, anterior and posterior. Heart Sounds: S1 and S2 auscultated. Stress Test Details Test: Pharmacologic stress testing performed using 0.4 mg of regadenoson per 5 mL given IV over 10 s econds. Reason for pharmacologic stress test: physical limitation. Nuclear Acquisition: Rest Tc-99m/Stress Tc-99m 1 day Rest Isotope: Tc-99m Sestamibi. Dose: 10.0 Date: 10/10/2023 Injection Time: 0930 Stress Isotope: Tc-99m Sestamibi. Dose: 30.0 Date: 10/10/2023 Injection Time: 1125 HR Resting HR Supine: 60 bpm Max Heart Rate (APMHR): 148.266538 bpm Target HR (85% APMHR): 125.788339 bpm Max HR Achieved: 101 bpm % of APMHR: 68.24 Recovery HR: 83 bpm HR response to stress: Normal HR response to stress. BP Resting BP Supine: 160/84 mmHg Max BP: 180/94 mmHg Recovery BP: 146/88 mmHg BP response to stress: Normal blood pressure response to stress. ECG Resting ECG: Sinus Rhythm; First Degree AV Block. Ectopy: Rare PAC. Stress ECG: Sinus Rhythm. ST Change: Nondiagnostic low heart rate. Arrhythmia: None. Recovery ECG: Sinus Rhythm; First Degree AV Block. Recovery ST Change: Nondiagnostic low heart rate. Recovery Arrhythmia: None. Clinical Stress Symptoms: Shortness of breath; Nausea; Pt. states she feels ...woozy and weird. Angina Score: None Rate Pressure Product: 36164 Stress ECG Conclusion 1. Resting EKG showed poor R wave progression, first-degree AV block 2. Patient underwent testing using pharmacologic stress with regadenoson 3. Peak heart rate achieved was 68% of maximal predicted for age 4. The electrocardiographic portion of the test was nondiagnostic 5. See MPI report Stress Test Summary STAGE HR BP SpO2 Symptoms NOTES Supine 60 160/84 Standing 77 160/86 1 min post Lexiscan injection 93 180/94 Pt. c/o shortness of breath. 3 min post Lexiscan injection 91 150/78 Pt. complaining of nausea and of feeling ...woozy and weird . 6 min post Lexiscan injection 83 146/88 Pt. states that she no longer feels short of breath or ...w oozy and weird, but that she does still feel nauseous. Pt. instructed to drink some coffee and have a snack to help relieve the nausea. MPI Conclusion Myocardial perfusion is normal. There is no ischemia or evidence of prior infarction Ejection fraction is 58% with normal wall motion Radiologist Interpretation Radiologist Interpretation by: Jj Angeles MD Interpretation Date/Time: 10/10/2023 17:01:25
[2023-10-10] MEDS: Regadenoson 0.4 MG/5 ML SYR IVP (11:24)
== END ==
PROVIDERS: PCP Nurse Practitioner Family; Visit Provider Nurse Practitioner Family
DX: R94.31 Abnormal electrocardiogram [ECG] [EKG] (principal)
CPT/HCPCS: 78452; 93016; 93018; 93017; J2785

== ENCOUNTER → 2023-10-31 01:55 | Outpatient (CLI) | payer OTHER, SELFPAY ==
--- OUTSIDE RECORDS SUMMARY | 2023-10-31 01:57 | XMS_ITS | Clinical Summary ---
Author Organization [facility] Address [address] [place] [address] Care Team Providers Care Gis Software Developer Name Role Phone Tanesha Burt GI ASST Primary Care Provider [phone] Social History Tobacco Use Types Packs/Day Years Used Date Smoking Tobacco: Never Assessed Sex and Gender Information Value Date Recorded Sex Assigned at Not on file Gender Identity Not on file Sexual Orientation Not on file Plan of Treatment Health Maintenance Due Date Last Done Comments Hepatitis C Screen 1950 RSV Immunization ( o r 60+ Years) (1 - 1-dose 60+ series) 2011 Fall Risk Screening 2016 COVID-19 Vaccine ( season) 2022 Care Teams Gis Software Developer Relationship Specialty Start Date End Date Tanesha Burt NP [address] [place] [phone] PCP - General 09/26/16
--- OUTSIDE RECORDS SUMMARY | 2023-10-31 01:57 | XMS_ITS | Referral Summary ---
Author Organization [facility] Address [address] [place] [address] Care Team Providers Care Shirt Trimmer Name Role Phone Tanesha Burt MARKETING ANALYTICS MANAGER Primary Care Provider [phone] Social History Tobacco Use Types Packs/Day Years Used Date Smoking Tobacco: Never Assessed Sex and Gender Information Value Date Recorded Sex Assigned at Not on file Gender Identity Not on file Sexual Orientation Not on file Plan of Treatment Not on file Care Teams Shirt Trimmer Relationship Specialty Start Date End Date Tanesha Burt NP [address] [place] [phone] PCP - General 09/26/16
--- OUTSIDE RECORDS SUMMARY | 2023-10-31 01:57 | XMS_ITS | Encounter Summary ---
Author Organization [facility] Address [facility] [place] [address] Care Team Providers Care Shoe Parts Molder Name Role Phone Quirino SCHREIBER MD, Tin Vila Primary Care Provider Encounter Details Date Type Department Care Team (Latest Contact Info) Description 09/06/2016 12:05 AM EDT - 09/06/2016 12:19 AM EDT Hospital Encounter [place] [address] Josh Griffith MD [facility] [place] [address] Pain Discharge Disposition: Home Social History Tobacco Use Types Packs/Day Years Used Date Smoking Tobacco: Never Assessed Sex and Gender Information Value Date Recorded Sex Assigned at Not on file Gender Identity Not on file Sexual Orientation Not on file documented as of this encounter Medications at Time of Discharge Medication Sig Dispensed Refills Start Date End Date CIS Free Text Med - Calcium + D 06/06/2006 FLUoxetine (PROZAC) 40 mg capsule 40mg, PO, Once daily 06/06/2006 valsartan-hydrochlorothiaz syed (DIOVAN HCT) 160-12.5 mg per tablet 1 Tablet(s), PO, QAM 06/06/2006 ascorbic acid (VITAMIN C) 500 mg tablet 06/06/2006 triamcinolone (NASACORT AQ) 55 mcg nasal inhaler 06/06/2006 metoprolol (LOPRESSOR) 100 mg tablet 100MG = 1 Tablet(s), PO, Twice daily 06/06/2006 documented as of this encounter Plan of Treatment Not on file documented as of this encounter Procedures Procedure Name Priority Date/Time Associated Diagnosis Comments FILM LIBRARY STORAGE ONLY CT HEAD Routine 09/06/2016 12:05 AM EDT Pain documented in this encounter Results * Film Library- Storage Only CT Head (09/06/2016 12:05 AM EDT) Narrative JASON - 09/07/2016 10:02 AM EDT This exam is for storage only and is auto-finalizing. Josh Griffith MD IMG FILM LIBRARY ORD ERABLES [place], [place] documented in this encounter Visit Diagnoses Diagnosis Pain Generalized pain documented in this encounter Care Teams Shoe Parts Molder Relationship Specialty Start Date End Date Tin Win III, MD [address] [place] [id number] PCP - General 03/07/10 documented as of this encounter
--- OUTSIDE RECORDS SUMMARY | 2023-10-31 01:57 | XMS_ITS | Encounter Summary ---
Author Organization [facility] Address [address] [place] [address] Care Team Providers Care Mainstreaming Facilitator Name Role Phone Unknown, Provider Primary Care Provider + [phone] Encounter Details Date Type Department Care Team (Late st Contact Info) Description 09/11/2016 Results Only [facility] [phone] Lynne Marshall MD [address] [place], [place] [address] Social History Tobacco Use Types Packs/Day Years Used Date Smoking Tobacco: Never Assessed Sex and Gender Information Value Date Recorded Sex Assigned at Not on file Gender Identity Not on file Sexual Orientation Not on file documented as of this encounter Plan of Treatment Not on file documented as of this encounter Procedures Procedure Name Priority Date/Time Associated Diagnosis Comments CYTOGENETICS Routine 09/11/2016 0:00 EDT documented in this encounter Results * CYTOGENETICS (09/11/2016 0:00 EDT) Pathology Report: CYTOGENETICS REPORT Reports generated via electronic interface contain original data; however they are lacking the format of the original report. Caution should be taken when reading/interpreti ng unformatted reports. Name: ? DVAID SHERIDAN ? Accession #: ? [id number] : ? 1950 (Age: 66) ??F ?Collect Date: ? 09/11/2016 Location: ? [facility] ? Receive Date: ? 09/12/2016 Provider: ? LYNNE MARSHALL MD Copy to: ?[facility] LYNNE CASTRO MD ? INTERPRETATION: FISH is negative for BCR/ABL1 gene fusion (cut-off 0.5%). A negative FISH result excludes the diagnosis of untreated CML. ? Document reviewed and electronically signed by: ? JOLANTA FELIX MD ? Report Date: ??09/14/2016 10:11 CLINICAL HISTORY: 66 yo female with urosepsis, acute renal failure, and elevated immature granulocytes. SPECIMEN: Peripheral Blood ?? TEST PERFORMED: Interphase FISH to detect BCR-ABL1 gene fusion ??Probe Vendor: [employer] ?? REPORT: Number of Cells Evaluated by FISH: 200 ?? KARYOTYPE: nuc yara(ABL1,BCR)x2[20 0] ?? COMMENT: Results of this negative BCR/ABL1 fusion FISH study were discussed with Dr. Ness Castro at 10:05 on 09/14/2016. This test was developed and its performance characteristics determined by [facility] as required by the CLIA'88 regulations. ??It has not been cleared or approved for specific uses by the [place] FDA. The FDA has determined that such clearance or approval is not necessary. This test is used for clinical purposes. It should not be regarded as investigational or research. ? End of Report [facility] 09/11/2016 09/12/2016 Lynne Marshall MD PATHOLOGY ORDERABLES [facility] [address] [place] [address] documented in this encounter Visit Diagnoses Not on filedocumented in this encounter Care Teams Mainstreaming Facilitator Relationship Specialty Start Date End Date Unknown, Provider, PCP - General 09/12/16 09/25/16 documented as of this encounter
--- OUTSIDE RECORDS SUMMARY | 2023-10-31 01:57 | XMS_ITS | Continuity of Care Document ---
Author Organization [facility], [address] Address [address] [place] [address] Assessment Encounter Date Assessment Date Assessment LastModified by Organization Details LastModified Time 09/14/2023 09/14/2023 pt immediately evaluated and EMS called immediately d/t pt's distress and elevated BP. Care transferred to EMS w condition unchanged. [email or web address] Not available 09/14/2023 12:53:50 Plan of Treatment Reminders Order Date Submit Date Provider Last Modified By Organization Details Last Modified Time Details Appointments None recorded. Lab None recorded. Referral None recorded. Procedures None recorded. Surgeries None recorded. Imaging electrocard iogram 2023 024 [email or web address] [id number], [address] [place], [address], 12:55:34 Medication Orders None recorded. Patient TargetsNo targets recorded. Patient Instructions Encounter Date Encounter Id Patient Instructions Last Modified By Organization Details Last Modified Time 09/14/2023 [id number] We recommend you go immediately to the nearest Emergency Department for further evaluation. We recommend that you go directly there from here and that you do not eat or drink anything until after you have been evaluated by the ER and cleared by them to eat and drink. [email or web address] Not available 09/14/2023 12:48:41 Reason for Referral None Reported. Results Created Date Observation Date Name Description Value Unit Range Abnormal Flag LastModifiedBy Organization Detail LastModifiedTime 09/14/19 24 09/14/2023 morena colvin am No observ ation record ed. [facility] [id number] [address] [place], [address], 09/14/2023 13:46:47 Result Notes None recorded. Procedures Surgical History None recorded. Imaging Results Imaging Date Name Status LastModified by Organization Details LastModified Time 09/14/2023 electrocardiogram completed [facility] [id number] [address] [place], [address], 09/14/2023 13:46:47 Procedure Notes None recorded. Medical Equipment None Reported. Medications Name Sig Start Date Stop Date Status Note LastModified by Organization Details LastModified Time fluoxetine 40 mg capsule TAKE ONE CAPSULE BY MOUTH EVERY DAY active Not Available Not Available No t Available sucralfate 1 gram tablet TAKE ONE TABLET BY MOUTH TWICE A DAY active Not Available Not Available No t Available simvastatin 10 mg tablet TAKE ONE TABLET BY MOUTH AT BEDTIME active Not Available Not Available No t Available thiamine HCl (vitamin B1) 100 mg tablet TAKE 1 TABLET BY MOUTH ONCE DAILY active Not Available Not Available No t Available amlodipine 5 mg tablet TAKE ONE TABLET BY MOUTH EVERY DAY active Not Available Not Available No t Available hydrocodone 10 mg-acetamin ophen 325 mg tablet active Not Available Not Available No t Available potassium chloride ER 20 mEq tablet,exte nded release(par t/cryst) TAKE TWO TABLETS BY MOUTH DAILY active Not Available Not Available No t Available trazodone 100 mg tablet TAKE ONE TABLET BY MOUTH AT BEDTIME NEEDED FOR SLEEP active Not Available Not Available No t Available pantoprazol e 40 mg tablet,sydnie yed release TAKE ONE TABLET BY MOUTH EVERY DAY active Not Available Not Available No t Available losartan 100 mg tablet TAKE ONE TABLET BY MOUTH EVERY DAY active Not Available Not Available No t Available fluoxetine 20 mg capsule TAKE ONE CAPSULE BY MOUTH EVERY DAY, FOR TOTAL OF 60MG DAILY active Not Available Not Available No t Available vitamin B complex capsule TAKE ONE TABLET BY MOUTH DAILY active Not Available Not Available No t Available amoxicillin 875 mg-potassiu m clavulanate 125 mg tablet TAKE ONE TABLET BY MOUTH EVERY 12 HOURS 09/13 completed Not Available Not Available Not Available Restasis 0.05 % eye drops in a dropperette INSTILL 1 DROP IN EACH EYE TWO TIMES A DAY DIRECTED active Not Available Not Available No t Available mirtazapine 7.5 mg tablet TAKE ONE TABLET BY MOUTH AT BEDTIME active Not Available Not Available No t Available quetiapine 50 mg tablet TAKE ONE TABLET BY MOUTH EVERY DAY active Not Available Not Available No t Available FeroSul 325 mg (65 mg iron) tablet TAKE ONE TABLET BY MOUTH EVERY OTHER DAY WITH VITAMIN C. active Not Available Not Available No t Available omega 3-dha-epa-f yara oil 300 mg-1,000 mg capsule TAKE 1 CAPSULE BY MOUTH ONCE DAILY active Not Available Not Available No t Available thiamine mononitrate (vitamin B1) 100 mg tablet TAKE ONE TABLET BY MOUTH DAILY active Not Available Not Available No t Available Vitals Date Recorded Respiratory rate Heart rate Oxygen saturation Oxygen saturation in Arterial blood by Pulse oximetry Systolic blood pressure Diastolic blood pressure Provider Name and Address Organization Details Last Updated DateTime 4 32 /min 90 /min 96 % 96 % 200 mm[Hg] 102 mm[Hg] DANIELLA MALDONADO - [facility] 4 12:40:37 Social History None recorded. Functional Status None recorded. Mental Status None recorded. Family History Nothing Reported. Medical History No medical history recorded. Gynecological History Statement/Question Response Is there any chance of ? No Obstetrics History GPAL:G 0 P 0 0 0 0 Past Encounters Encounter ID Performer Location Encounter Start Date Encounter Closed Date Diagnosis/Indication Diagnosis SNOMED-CT Code [id number] [facility] [id number] [address] [place] [address] 09/14/2023 12:38:05 09/14/2023 12:55:34 Dyspnea [id number] Hypertensive disorder 38 [id number] Abdominal pain [id number] Health Concerns Section Related Observation LastModified by Organization Detai ls LastModified Time None Recorded Concern Status LastModified by Organization Details LastModified Time None Recorded Payers Encounter Date Sequence Insurance Name Policy Number Policy Daniel Covered Member ID Daniel Member ID Guarantor Name 09/14/2023 1 [facility] [employer] [id number] Buy With [place] Notes Date Note Type Note Provider Name and Address Organization Details Recorded Time 09/14/2023 text/html HPI Notes: pt presents in distress, provider called urgently to triage, pt states she cannot breathe, feels like she is going to pass out, unable to give additional hx due to her distress. she is hypertensive. she states she feels she is not able to completely pass her bowels, last 2 times has had blood in the stools. ems immediately called, ekg obtained while waiting, transferred to er via ems ERICA GILLIAM [address] [place], [address], [place] - [facility] 09/14/2023 12:53:54 OBGyn Episode No OBEpisode recorded.
--- OUTSIDE RECORDS SUMMARY | 2023-10-31 01:57 | XMS_ITS | Continuity of Care Document ---
Author Organization Unknown Address Unknown Care Team Providers Care Physical Fitness Teacher Name Role Phone MD JOLENE SINGLETARY Admitting Physician Unavailabl e PCPNF, PCP NOT Primary Care Physician Unavailab MD CORINA Drew Attending Physician Olegario pryor Chief Complaint and [...] September 14, 2022 7:35am Acetaminophen/H ydrocodone Bitart (Decker 5/325) 1 Each TAB Active 1-2 TAB PO Every 4 Hours as needed for Moderate To Severe Pain(4-10) 20 5 September 14, 2022 7:36am Amlodipine Besylate (Norvasc) 5 Mg TAB Active 5 MG PO Every Morning Cyclosporine (Restasis 0.05% Oph Emul) 1 Each DROPERETTE Active 1 DROP BOTH EYES Twice A Day 1 Fish Oil (Sheldon 3) 1,000 Mg CAP Active 1000 MG [...] screw, non-bioabsorbable, sterile September 06, 2022 SONIDO: [id number] Issuing Agency: [facility] Device Id: [id number] Expiration Date: 2032-01-13 Lot Number: [id number] Orthopaedic bone screw, non-bioabsorbable, sterile September 06, 2022 SONIDO: [id number] Issuing Agency: [facility] Device Id: [id number] Expiration Date: 2031-11-21 Lot Number: [id number] Procedures Procedure Date Performed Status Open reduction [...] active X-ray exam hip uni 2-3 views May 25th, 2023 com pleted Encounter Stat Only Day Sgy September 06, 2022 comp leted Relevant Diagnostic Tests and/or Laboratory Data Laboratory Results Test Date/Time Result Interpretation Reference Range Result Comment Performing Site White Blood Count September 09, 2022 2:21am 9.2 4.5-11.5 [facility] [id number] [address] [place] [address] Red Blood Count September 09, 2022 2:21am 2.89 3.8-5.1 [facility] [id number] [address] [place] [address] Hemoglobin September 10, 2022 9:34am 8.2 12.0-15.2 [facility] [id number] [address] [place] [address] Hematocrit September 10, 2022 9:34am 25.1 34.0-45.5 [facility] [id number] [address] [place] [address] Mean Corpuscular Volume September 10, 2022 9:34am 91 80-94 [facility] [id number] [address] [place] [address] Mean Corpuscular Hemoglobin September 10, 2022 9:34am 29.6 27.0-33.0 [facility] [id number] [address] [place] [address] Mean Corpuscular Hemoglobin Concent September 10, 2022 9:34am 32.7 33.0-37.0 [facility] [id number] [address] [place] [address] Red Cell Distribution Width September 09, 2022 2:21am 12.9 10.7-14.5 [facility] [id number] [address] [place] [address] Platelet Count September 09, 2022 2:21am 229 150-450 [facility] [id number] [address] [place] [address] Mean Platelet Volume September 09, 2022 2:21am 11.3 5.7-10.7 [facility] [id number] [address] [facility] [address] Neutrophils (%) (Auto) September 09, 2022 2:21am 75 47-75 [facility] [id number] [address] [facility] [address] Immature Granulocyte % (Auto) September 09, 2022 2:21am 1 0-0 [facility] [id number] [address] [facility] [address] Lymphocytes (%) (Auto) September 09, 2022 2:21am 14 25-44 [facility] [id number] [address] [facility] [address] Monocytes (%) (Auto) September 09, 2022 2:21am 9 3-10 [facility] [id number] [address] [facility] [address] Eosinophils (%) (Auto) September 09, 2022 2:21am 1 0-7 [facility] [id number] 28[address] [facility] [address] Basophils (%) (Auto) September 09, 2022 2:21am 1 0-1 [facility] [id number] [address] [facility] [address] Nucleated Red Blood Cells % September 09, 2022 2:21am 0.0 0-0.2 [facility] [id number] [address] [facility] [address] Neutrophils # (Auto) September 09, 2022 2:21am 6.9 1.3-6.7 [place] [id number] [address] [facility] [address] Immature Granulocyte # (Auto) September 09, 2022 2:21am 0.1 0.0-0.0 [place] [id number] [address] [place] [address] Lymphocytes # (Auto) September 09, 2022 2:21am 1.2 1.4-4.1 [facility] [id number] 28[address] [facility] [address] Monocytes # (Auto) September 09, 2022 2:21am 0.8 0-1.3 [facility] [id number] 28[address] [facility] [address] Eosinophils # (Auto) September 09, 2022 2:21am 0.1 0-0.8 [facility] [id number] [address] [facility] [address] Basophils # (Auto) September 09, 2022 2:21am 0.1 0-0.1 [facility] [id number] 28[address] [facility] [address] Nucleated Red Blood Cells # September 09, 2022 2:21am 0.00 0-0.01 [facility] [id number] [address] [place] [address] Manual Differential September 09, 2022 2:21am Not Ind [facility] [id number] [address] [place] [address] 15385 Urine Source September 06, 2022 5:03pm URCATH [facility] [id number] [address] [place] [address]26 Urine Color September 06, 2022 5:03pm Yellow Yel-Sangita * [facility] [id number] [address] [place] [address] 27436 Urine Appearance September 06, 2022 5:03pm Clear Clear * [facility] [id number] [address] [place] [address] 56844 Urine pH September 06, 2022 5:03pm 6.0 5.0-8.0 [facility] [id number] [address] [place] [address] 34470 Urine Specific [place] September 06, 2022 5:03pm > 1.030 1.005-1.03 0 A specific gravity of 1.030 or greater may be caused by the following conditions:Clini fatemeh: Dehydration (diarrhea, excess sweating, vomiting, water restriction) Glucosuria Heart Failure Renal arterial stenosis SIADH (Syndrome of inappropriate antidiuretic hormone secretion)Drug related: I.V. Dextran I.V. Sucrose Radiographic contrast medium [facility] [id number] [address] [place] [address] 21221 Urine Protein September 06, 2022 5:03pm 100 Negative * [facility] [id number] [address] [place] [address] Urine Glucose (UA) September 06, 2022 5:03pm Negative Negative * [facility] [id number] [address] [place] [address] 59968 Urine Ketones September 06, 2022 5:03pm 20 Negative * [facility] [id number] [address] [place] [address] 25004 Urine Occult Blood September 06, 2022 5:03pm Negative Negative * [facility] [id number] [address] [place] [address] 83016 Urine Nitrite September 06, 2022 5:03pm Negative Negative [facility] [id number] [address] [place] [address] Urine Bilirubin September 06, 2022 5:03pm Negative Negative [facility] [id number] [address] [place] [address] 61231 Urine Urobilinogen September 06, 2022 5:03pm Negative 0.0-1.0 [facility] [id number] [address] [place] [address] 55774 Urine Leukocyte Esterase September 06, 2022 5:03pm 75 Negative [facility] [id number] [address] [place] [address] 21499 Microscopic Urinalysis (T) September 06, 2022 5:03pm ----- [facility] [id number] [address] [place] [address] 23729 Urine RBC September 06, 2022 5:03pm 3-10 0-2 [facility] [id number] [address] [place] [address] 10854 Urine WBC September 06, 2022 5:03pm 21-40 0-5 [facility] [id number] [address] [place] [address] 17510 Urine Epithelial Cells September 06, 2022 5:03pm None Seen Few [facility] [id number] [address] [place] [address] 62600 Urine Crystals September 06, 2022 5:03pm None Seen None * [facility] [id number] [address] [place] [address] Urine Bacteria September 06, 2022 5:03pm Few None [facility] [id number] [address] [place] [address] Urine Casts September 06, 2022 5:03pm Present None * [facility] [id number] [address] [place] [address] Urine Hyaline Casts September 06, 2022 5:03pm >20 0-1 [facility] [id number] [address] [place] [address] Urine Yeast September 06, 2022 5:03pm None Seen None [facility] [id number] [address] [facility] [address] Urinalysis Comment September 06, 2022 5:03pm * * Ref Range = * Clinical evaluation required. [facility] [id number] [address] [place] [address] Urine Culture Indicated September 06, 2022 5:03pm To follow [facility] [id number] [address] [place] [address] Sodium Level September 14, 2022 9:30am 134 136-145 [facility] [id number] [address] [facility] [address] Potassium Level September 14, 2022 9:30am 3.1 3.5-5.1 [facility] [id number] [address] [facility] [address] Chloride Level September 14, 2022 9:30am 93 98-107 [facility] [id number] [address] [facility] [address] Carbon Dioxide Level September 14, 2022 9:30am 32 23-31 [facility] [id number] [address] [facility] [place] [address] Anion Gap September 14, 2022 9:30am 12 8-18 [facility] [id number] [address] [facility] [place] [address] Blood Urea Nitrogen September 14, 2022 9:30am 28 10-20 [facility] [id number] 2830 [facility] [address] Creatinine September 14, 2022 9:30am 1.0 0.6-1.1 [facility] [id number] [address] [place] [address] 28879 Estimat Glomerular Filtration Rate September 14, 2022 [...] Americans, multiply the result provided by 1.21. [facility] [id number] [address] [place] [address] 14544 Glucose Level September 14, 2022 9:30am 139 60-100 [facility] [id number] [address] [place] [address] 49663 Calcium Level September 14, 2022 9:30am 10.1 8.4-10.2 [facility] [id number] [address] [place] [address] 30583 Phosphorus Level September 07, 2022 12:09am 3.7 2.3-4.7 [facility] [id number] [address] [place] [address] 45718 Magnesium Level September 09, 2022 2:21am 1.63 1.60-2.60 [facility] [id number] [address] [place] [address] 77310 Total Bilirubin September 09, 2022 2:21am 1.2 0.2-1.2 [facility] [id number] [address] [place] [address] 55584 Aspartate Amino Transf (AST/SGOT) September 09, 2022 2:21am 12 5-34 [facility] [id number] [address] [place] [address] 45985 Alanine Aminotransfera se (ALT/SGPT) September 09, 2022 2:21am 11 0-55 [facility] [id number] [address] [place] [address] Total Protein September 09, 2022 2:21am 5.6 5.8-7.6 [facility] [id number] [address] [place] [address] 30495 Albumin September 09, 2022 2:21am 3.1 3.2-4.7 [facility] [id number] [address] [place] [address] 79695 Alkaline Phosphatase September 09, 2022 2:21am 52 40-150 [facility] [id number] [address] [place] [address] 41308 Cholesterol Level September 06, 2022 4:05am 113 < 200 Note: Y-Xbidf-G-Cystei ne can cause falsely low measurements of cholesterol. Correlation with patient's medication history is recommended. [facility] [id number] [address] [place] [address] 42732 Triglycerides Level September 06, 2022 4:05am 91 < 150 Note: Y-Vuybe-P-Cystei ne can cause falsely low measurements of triglycerides. Correlation with patient's medication history is recommended. [facility] [id number] [address] [place] [address] 34831 HDL Cholesterol September 06, 2022 4:05am 29 40-60 Note: E-Fflkz-R-Cystei ne at elevated concentrations may lead to falsely low measurements of HDL. Correlation with patient's medication history is recommended. [facility] [id number] [address] [place] [address] 53126 LDL Cholesterol September 06, 2022 4:05am 66 0-99 [place] [id number] [address] [place] [address] 12946 Cholesterol/HD L Ratio September 06, 2022 4:05am [...] is optimized with 8-10 Hrs pretesting fast. [facility] [id number] [address] [place] [address] 20203 Cholesterol Ratio (LDL/HDL) September 06, 2022 4:05am 2.3 [facility] [id number] [address] [place] [address]64 Hemoglobin A1c September 06, 2022 4:05am 4.4 <5.7 Hemoglobin A1C (%) Glycemic Goal < 8.0 Less stringent < 7.0 General (non- adults) < 6.5 More hepzqgsyzPoH1f values above 6.5 % are an indication of hyperglycemia during the preceding 2 to 3 months or longer. According to the recommendations of the ADA. HbA1c values above 6.5 % are suitable for the diagnosis of diabetes mellitus. Patients with HbA1c values in the range of 5.7 - 6.4 % may be at risk of developing diabetes. [facility] [id number] [address] [place] [address]756 Bedside Glucose September 14, 2022 11:32am 148 60-100 [facility] [id number] [address] [place] [address] 18403 Microbiology Results Procedure Source Result Collection Date/Time Result Date/Time Result Comment Performing Site Urine Culture Urine Catheterized No growth September 06, 2022 5:03pm September 08, 2022 7:30am [facility] [id number] [address] [place] [address] 18091 Diagnostic Imaging Reports Report Dictated Date/Time Dictated [...] Signed by: SRIKANTH MOSER MD Date Signed: 09/06/22 05 Report Dictated Date/Time Dictated By Status Hip [...] 97.6-99.5 September 06, 2 023 3:13pm Weight 73.745080 kg September 05, 2022 6:00pm BMI (Body Mass Index) 25.4 kg/m2 September 052022 6:00pm Advance Directives Advance Directive Response Recorded Date/ Time Does the Patient have an Advance Directive? No September 05, 2022 6:00pm Insurance Providers Guarantor David Sheridan Address [address] [place] [address] Contact Info. 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 Pt/Fm/Caregiver Expressed Understanding of Portal Enrollment: Yes Pt/Family/Caregiver Received Discharge Home Medication List: Yes Prescription(s) Given: Comment: RX FOR PAIN MEDS SENT TO [facility] [place] Discharge Care Plan #1 Problem: Pain Goal: [...]
--- OUTSIDE RECORDS SUMMARY | 2023-10-31 01:57 | XMS_ITS | Encounter Summary ---
Author Organization [facility] Address [facility] [place] [address] Care Team Providers Care Plaster Model And Mold Maker Name Role Phone Quirino SCHREIBER MD, Tin Vila Primary Care Provider Encounter Details Date Type Department Care Team (Latest Contact Info) Description 09/06/2016 12:20 AM EDT - 09/06/2016 11:59 PM EDT Hospital Encounter [place] [address] Josh Griffiht MD [facility] [place] [address] Pain Discharge Disposition: Home Social History Tobacco [...] Diagnosis Comments FILM LIBRARY STORAGE ONLY CT ABDOMEN AND PELVIS Routine 09/06/2016 12:20 AM EDT Pain documented in this encounter Results * Film Library- Storage Only CT Abdomen & Pelvis (09/06/2016 12:20 AM EDT) Narrative [facility] - 09/07/2016 10:03 AM EDT This exam is for storage only and is auto-finalizing. Josh Griffith MD IMG FILM LIBRARY ORD ERABLES Performing Organization Address City/State/[facility] Co de Phone Number [place], [place] documented in this encounter Visit Diagnoses Diagnosis Pain Generalized pain documented in this encounter Care Teams Plaster Model And Mold Maker Relationship Specialty Start Date End Date Tin Win III, MD [address] [place] [address] PCP - General 03/07/10 documented as of this encounter
--- OUTSIDE RECORDS SUMMARY | 2023-10-31 01:57 | XMS_ITS | Clinical Summary ---
Author Organization [facility] Address [facility] [place] [address] Care Team Providers Care Pourer Bull Ladle Name Role Phone Quirino SCHREIBER MD, Tin Vila Primary Care Provider Allergies No known active allergies Medications Medication Sig Dispensed Refills Start Date End Date Status CIS Free Text Med - Calcium + D 06/06/2006 Active FLUoxetine (PROZAC) 40 mg capsule 40mg, PO, Once daily 06/06/2006 Active valsartan-hydrochloroth iazide (DIOVAN HCT) 160-12.5 mg per tablet 1 Tablet(s), PO, QAM 06/06/2006 Active ascorbic acid (VITAMIN C) 500 mg tablet 06/06/2006 Active triamcinolone (NASACORT AQ) 55 mcg nasal inhaler 06/06/2006 Active metoprolol (LOPRESSOR) 100 mg tablet 100MG = 1 Tablet(s), PO, Twice daily 06/06/2006 Active Immunizations Name Administration Dates Next Due Influenza Vaccine, Whole 02/02/2005 Social History Tobacco Use Types Packs/Day Years Used Date Smoking Tobacco: Never Assessed Sex and Gender Information Value Date Recorded Sex Assigned at Not on file Gender Identity Not on file Sexual Orientation Not on file Plan of Treatment Health Maintenance Due Date Last Done Comments CT Colonography 1951 Colonoscopy 1951 Colorectal Cancer Screening 1951 FIT DNA 1951 FIT 1951 Sigmoidoscopy (10 year) with FIT yearly 1951 Sigmoidoscopy 1951 Hepatitis C Screening 1969 Tdap adult 1970 Tetanus vaccine 1970 Breast Cancer Share Decision Needed 1991 Breast Cancer screening 1991 Zoster vaccine (1 of 2) 2001 Advance Directive 2006 Bone Density Scan 2016 Pneumoccocal Vaccine: 65+ (1 of 1 - PCV) 2016 Covid-19 Vaccine (1 - 2022-24 season) 2022 Influenza (Flu) vaccine (1 o f 1 - Influenza standard series) 12/15/2023 02/02/2005 Care Teams Pourer Bull Ladle Relationship Specialty Start Date End Date Tin Win III, MD [address] [address] [address] PCP - General 03/07/10
--- OUTSIDE RECORDS SUMMARY | 2023-10-31 01:57 | XMS_ITS | Encounter Summary ---
Author Organization [facility] Address [facility] [place] [address] Care Team Providers Care Product/Industry Consultant Name Role Phone Quirino SCHREIBER MD, Tin Vila Primary Care Provider Encounter Details Date Type Department Care Team (Latest Contact Info) Description 09/06/2016 - 09/06/2016 12:04 AM EDT Hospital Encounter [place] [address] Josh Griffith MD [facility] [address] [place] [address] Pain Discharge Disposition: Home Social History Tobacco [...] Associated Diagnosis Comments FILM LIBRARY STORAGE ONLY MR ABDOMEN Routine 09/06/2016 12:00 AM EDT Pain documented in this encounter Results * Film Library- Storage Only MR Abdomen (09/06/2016 12:00 AM EDT) Narrative RAD - 09/07/2016 10:01 AM EDT This exam is for storage only and is auto-finalizing. Josh Griffith MD IMG FILM LIBRARY ORD ERABLES [place], [place] documented in this encounter Visit Diagnoses Diagnosis Pain Generalized pain documented in this encounter Care Teams Product/Industry Consultant Relationship Specialty Start Date End Date Tin Win III, MD [address] [place] [address] PCP - General 03/07/10 documented as of this encounter
--- OUTSIDE RECORDS SUMMARY | 2023-10-31 01:57 | XMS_ITS | Data Portability ---
Author Organization [facility] Jyothi sanchez, [address] Address [address] [place] [id number] Assessment Encounter Date Assessment Date Assessment LastModified by Organization Details LastModified Time 09/14/2023 09/14/2023 pt immediately evaluated and EMS called immediately d/t pt's distress and elevated BP. Care transferred to EMS w condition unchanged. [email or web address] Not available 09/14/2023 12:53:50 Plan of Treatment Reminders Order Date Submit Date Provider Last Modified By Organization Details Last Modified Time Details Appointments None recorded. Lab None recorded. Referral None recorded. Procedures None recorded. Surgeries None recorded. Imaging electrocard iogram 2023 024 [email or web address] [id number] [place], [address], 12:55:34 Medication Orders None recorded. Patient TargetsNo targets recorded. Patient Instructions Encounter Date Encounter Id Patient Instructions Last Modified By Organization Details Last Modified Time 09/14/2023 [id number] We recommend you go immediately to the nearest Emergency Department for further evaluation. We recommend that you go directly there from here and that you do not eat or drink anything until after you have been evaluated by the ER and cleared by them to eat and drink. [email or web address] Not available 09/14/2023 12:48:41 Reason for Referral None Reported. Results Created Date Observation Date Name Description Value Unit Range Abnormal Flag LastModifiedBy Organization Detail LastModifiedTime 09/14/19 24 09/14/2023 morena colvin am No observ ation record ed. [facility] [id number] [place], [address], 09/14/2023 13:46:47 Result Notes None recorded. Procedures Surgical History None recorded. Imaging Results Imaging Date Name Status LastModified by Organization Details LastModified Time 09/14/2023 electrocardiogram completed [facility] [id number] [address] [place], [address], 09/14/2023 13:46:47 Procedure Notes None recorded. Medical [...] Encounter Closed Date Diagnosis/Indication Diagnosis SNOMED-CT Code [id number] [facility] [address] [address] [place] [address] 09/14/2023 12:38:05 09/14/2023 12:55:34 Dyspnea [id number] Hypertensive disorder 38 [id number] Abdominal pain [id number] Health Concerns Section Related Observation LastModified by Organization Detai ls LastModified Time None Recorded Concern Status LastModified by Organization Details LastModified Time None Recorded Advance Directives Directive None Recorded Payers Encounter Date Sequence Insurance Name Policy Number Policy Daniel Covered Member ID Daniel Member ID Guarantor Name 09/14/2023 1 [employer] [place] Alona Terrell [id number] Alona Seanikolai Notes Date Note Type Note Provider Name [...] er via ems ERICA GILLIAM [address] [place], [address], [place] - [employer] [facility] 09/14/2023 12:53:54 OBGyn Episode No OBEpisode recorded.
--- OUTSIDE RECORDS SUMMARY | 2023-10-31 01:57 | XMS_ITS | Continuity of Care Document ---
Author Organization Unknown Address Unknown Care Team Providers Care Ladies Locker Room Attendant Name Role Phone MD JOLENE SINGLETARY Admitting [...] September 14, 2022 7:35am Acetaminophen/H ydrocodone Bitart (Rhodelia 5/325) 1 Each TAB Active 1-2 TAB PO Every 4 Hours as needed for Moderate To Severe Pain(4-10) 20 5 September 14, 2022 7:36am Amlodipine Besylate (Norvasc) 5 Mg TAB Active 5 MG PO Every Morning Cyclosporine (Restasis 0.05% Oph Emul) 1 Each DROPERETTE Active 1 DROP BOTH EYES Twice A Day 1 Fish Oil (Stilwell 3) 1,000 Mg CAP Active 1000 MG [...] screw, non-bioabsorbable, sterile September 06, 2022 SONIDO: [id number] Issuing Agency: [facility] Device Id: [id number] Expiration Date: 2032-01-13 Lot Number: [id number] Orthopaedic bone screw, non-bioabsorbable, sterile September 06, 2022 SONIDO: [id number] Issuing Agency: [facility] Device Id: [id number] Expiration Date: 2031-11-21 Lot Number: [id number] Procedures Procedure Date Performed Status Open reduction and internal fixation of left hip using intramedullary hip screw September 06, 2022 1:34pm completed ECG (electrocardiogram) September 05, 2022 7:08pm co mpleted X-ray of chest, single view September 05, 2022 comp hsy Silva trauma team September 05, 2022 completed [...] Count September 09, 2022 2:21am 9.2 4.5-11.5 [facility] [id number] [address] [place] [address] Red Blood Count September 09, 2022 2:21am 2.89 3.8-5.1 [facility] [id number] [address] [place] [address] Hemoglobin September 10, 2022 9:34am 8.2 12.0-15.2 [facility] [id number] [address] [place] [address] Hematocrit September 10, 2022 9:34am 25.1 34.0-45.5 [facility] [id number] [address] [place] [address] Mean Corpuscular Volume September 10, 2022 9:34am 91 80-94 [facility] [id number] [address] [place] [address] Mean Corpuscular Hemoglobin September 10, 2022 9:34am 29.6 27.0-33.0 [facility] [id number] [address] [place] [address] Mean Corpuscular Hemoglobin Concent September 10, 2022 9:34am 32.7 33.0-37.0 [facility] [id number] [address] [place] [address] Red Cell Distribution Width September 09, 2022 2:21am 12.9 10.7-14.5 [facility] [id number] [address] [place] [address] Platelet Count September 09, 2022 2:21am 229 150-450 [facility] [id number] [address] [place] [address] Mean Platelet Volume September 09, 2022 2:21am 11.3 5.7-10.7 [facility] [id number] 28[address] [facility] [address] Neutrophils (%) (Auto) September 09, 2022 2:21am 75 47-75 [facility] [id number] 2830 [facility] [address] Immature Granulocyte % (Auto) September 09, 2022 2:21am 1 0-0 [facility] [id number] 2830 [facility] [address] Lymphocytes (%) (Auto) September 09, 2022 2:21am 14 25-44 [facility] [id number] 2830 [facility] [address] Monocytes (%) (Auto) September 09, 2022 2:21am 9 3-10 [facility] [id number] 2830 [facility] [address] Eosinophils (%) (Auto) September 09, 2022 2:21am 1 0-7 [facility] [id number] 2830 [facility] [address] Basophils (%) (Auto) September 09, 2022 2:21am 1 0-1 [facility] [id number] 2830 [facility] [address] Nucleated Red Blood Cells % September 09, 2022 2:21am 0.0 0-0.2 [facility] [id number] 2830 [facility] [address] Neutrophils # (Auto) September 09, 2022 2:21am 6.9 1.3-6.7 [place] [id number] 28[address] [facility] [address] Immature Granulocyte # (Auto) September 09, 2022 2:21am 0.1 0.0-0.0 [place] [id number] [address] [place] [address] Lymphocytes # (Auto) September 09, 2022 2:21am 1.2 1.4-4.1 [facility] [id number] 2830 [facility] [address] Monocytes # (Auto) September 09, 2022 2:21am 0.8 0-1.3 [facility] [id number] 2830 [facility] [address] Eosinophils # (Auto) September 09, 2022 2:21am 0.1 0-0.8 [facility] [id number] 2830 [facility] [address] Basophils # (Auto) September 09, 2022 2:21am 0.1 0-0.1 [facility] [id number] 2830 [facility] [address] Nucleated Red Blood Cells # September 09, 2022 2:21am 0.00 0-0.01 [facility] [id number] [address] [place] [address] Manual Differential September 09, 2022 2:21am Not Ind [facility] [id number] [address] [place] [address] Urine Source September 06, 2022 5:03pm URCATH [facility] [id number] [address] [place] [address] Urine Color September 06, 2022 5:03pm Yellow Yel-Sangita * [facility] [id number] [address] [place] [address] Urine Appearance September 06, 2022 5:03pm Clear Clear * [facility] [id number] [address] [place] [address] Urine pH September 06, 2022 5:03pm 6.0 5.0-8.0 [facility] [id number] [address] [place] [address] Urine Specific [place] September 06, 2022 5:03pm > 1.030 1.005-1.03 0 A specific gravity of 1.030 or greater may be caused by the following conditions:Clini fatemeh: Dehydration (diarrhea, excess sweating, vomiting, water restriction) Glucosuria Heart Failure Renal arterial stenosis SIADH (Syndrome of inappropriate antidiuretic hormone secretion)Drug related: I.V. Dextran I.V. Sucrose Radiographic contrast medium [facility] [id number] [address] [place] [address] Urine Protein September 06, 2022 5:03pm 100 Negative * [facility] [id number] [address] [place] [address] Urine Glucose (UA) September 06, 2022 5:03pm Negative Negative * [facility] [id number] [address] [place] [address] Urine Ketones September 06, 2022 5:03pm 20 Negative * [facility] [id number] [address] [place] [address] Urine Occult Blood September 06, 2022 5:03pm Negative Negative * [facility] [id number] [address] [place] [address] Urine Nitrite September 06, 2022 5:03pm Negative Negative [facility] [id number] [address] [place] [address] Urine Bilirubin September 06, 2022 5:03pm Negative Negative [facility] [id number] [address] [place] [address] Urine Urobilinogen September 06, 2022 5:03pm Negative 0.0-1.0 [facility] [id number] [address] [place] [address] Urine Leukocyte Esterase September 06, 2022 5:03pm 75 Negative [facility] [id number] [address] [place] [address] Microscopic Urinalysis (T) September 06, 2022 5:03pm ----- [facility] [id number] [address] [place] [address] Urine RBC September 06, 2022 5:03pm 3-10 0-2 [facility] [id number] [address] [place] [address] Urine WBC September 06, 2022 5:03pm 21-40 0-5 [facility] [id number] [address] [place] [address] Urine Epithelial Cells September 06, 2022 5:03pm None Seen Few [facility] [id number] [address] [place] [address] Urine Crystals September 06, 2022 5:03pm None Seen None * [facility] [id number] [address] [place] [address] Urine Bacteria September 06, 2022 5:03pm Few None [facility] [id number] [address] [place] [address] Urine Casts September 06, 2022 5:03pm Present None * [facility] [id number] [address] [place] [address] Urine Hyaline Casts September 06, 2022 5:03pm >20 0-1 [facility] [id number] [address] [place] [address] Urine Yeast September 06, 2022 5:03pm None Seen None [facility] [id number] [address] [facility] [address] Urinalysis Comment September 06, 2022 5:03pm * * Ref Range = * Clinical evaluation required. [facility] [id number] [address] [place] [address] Urine Culture Indicated September 06, 2022 5:03pm To follow [facility] [id number] [address] [place] [address] Sodium Level September 14, 2022 9:30am 134 136-145 [facility] [id number] [address] [facility] [address] Potassium Level September 14, 2022 9:30am 3.1 3.5-5.1 [facility] [id number] [address] [facility] [address] Chloride Level September 14, 2022 9:30am 93 98-107 [facility] [id number] 2830 [facility] [address] Carbon Dioxide Level September 14, 2022 9:30am 32 23-31 [facility] [id number] [address] [facility] [address] Anion Gap September 14, 2022 9:30am 12 8-18 [facility] [id number] 2830 [facility] [place] [address] Blood Urea Nitrogen September 14, 2022 9:30am 28 10-20 [facility] [id number] 2830 [facility] [address] Creatinine September 14, 2022 9:30am 1.0 0.6-1.1 [facility] [id number] [address] [place] [address] Estimat Glomerular Filtration Rate September 14, 2022 [...] Americans, multiply the result provided by 1.21. [facility] [id number] [address] [place] [address] Glucose Level September 14, 2022 9:30am 139 60-100 [facility] [id number] [address] [place] [address] Calcium Level September 14, 2022 9:30am 10.1 8.4-10.2 [facility] [id number] [address] [place] [address] Phosphorus Level September 07, 2022 12:09am 3.7 2.3-4.7 [facility] [id number] [address] [place] [address] Magnesium Level September 09, 2022 2:21am 1.63 1.60-2.60 [facility] [id number] [address] [place] [address] Total Bilirubin September 09, 2022 2:21am 1.2 0.2-1.2 [facility] [id number] [address] [place] [address]269 Aspartate Amino Transf (AST/SGOT) September 09, 2022 2:21am 12 5-34 [facility] [id number] [address] [place] [address] Alanine Aminotransfera se (ALT/SGPT) September 09, 2022 2:21am 11 0-55 [facility] [id number] [address] [place] [address] Total Protein September 09, 2022 2:21am 5.6 5.8-7.6 [facility] [id number] [address] [place] [address] Albumin September 09, 2022 2:21am 3.1 3.2-4.7 [facility] [id number] [address] [place] [address] Alkaline Phosphatase September 09, 2022 2:21am 52 40-150 [facility] [id number] [address] [place] [address] Cholesterol Level September 06, 2022 4:05am 113 < 200 Note: F-Sfaae-T-Cystei ne can cause falsely low measurements of cholesterol. Correlation with patient's medication history is recommended. [facility] [id number] [address] [place] [address] Triglycerides Level September 06, 2022 4:05am 91 < 150 Note: E-Xllpq-Y-Cystei ne can cause falsely low measurements of triglycerides. Correlation with patient's medication history is recommended. [facility] [id number] [address] [place] [address] HDL Cholesterol September 06, 2022 4:05am 29 40-60 Note: C-Hjzez-R-Cystei ne at elevated concentrations may lead to falsely low measurements of HDL. Correlation with patient's medication history is recommended. [facility] [id number] [address] [place] [address] LDL Cholesterol September 06, 2022 4:05am 66 0-99 [place] [id number] [address] [place] [address] Cholesterol/HD L Ratio September 06, 2022 4:05am [...] is optimized with 8-10 Hrs pretesting fast. [facility] [id number] [address] [place] [address] Cholesterol Ratio (LDL/HDL) September 06, 2022 4:05am 2.3 [facility] [id number] [address] [place] [address] Hemoglobin A1c September 06, 2022 4:05am 4.4 <5.7 Hemoglobin A1C (%) Glycemic Goal < 8.0 Less stringent < 7.0 General (non- adults) < 6.5 More [id number] values above 6.5 % are an indication of hyperglycemia during the preceding 2 to 3 months or longer. According to the recommendations of the ADA. HbA1c values above 6.5 % are suitable for the diagnosis of diabetes mellitus. Patients with HbA1c values in the range of 5.7 - 6.4 % may be at risk of developing diabetes. [facility] [id number] [address] [place] [address] Bedside Glucose September 14, 2022 11:32am 148 60-100 [facility] [id number] [address] [place] [address] Microbiology Results Procedure Source Result Collection Date/Time Result Date/Time Result Comment Performing Site Urine Culture Urine Catheterized No growth September 06, 2022 5:03pm September 08, 2022 7:30am [facility] [id number] [address] [place] [address] Diagnostic Imaging Reports Report Dictated Date/Time Dictated [...] 97.6-99.5 September 06, 2 023 3:13pm Weight 73.148475 kg September 05, 2022 6:00pm BMI (Body Mass Index) 25.4 kg/m2 September 052022 6:00pm Advance Directives Advance Directive Response Recorded Date/ Time Does the Patient have an Advance Directive? No September 05, 2022 6:00pm Insurance Providers Guarantor David Sheridan Address [address] [place] [address] Contact Info. 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 Pt/Fm/Caregiver Expressed Understanding of Portal Enrollment: Yes Pt/Family/Caregiver Received Discharge Home Medication List: Yes Prescription(s) Given: Comment: RX FOR PAIN MEDS SENT TO [facility] [place] Discharge Care Plan #1 Problem: Pain Goal: [...]
--- OUTSIDE RECORDS SUMMARY | 2023-10-31 01:57 | XMS_ITS | Encounter Summary ---
Author Organization [facility] Address [address] [place] [address] Care Team Providers Care Truck Repair Service Estimator Name Role Phone Tanesha Burt NP Primary Care Provider [phone] Encounter Details Date Type Department Care Team (Late st Contact Info) Description 08/22/2022 Lab Requisition [facility] Pathology & Laboratory Medicine - [facility] [address] [place] [address] Outr Resulting Lab, Provider Social History Tobacco Use Types Packs/Day Years Used Date Smoking Tobacco: Never Assessed Sex and Gender Information Value Date Recorded Sex Assigned at Not on file Gender Identity Not on file Sexual Orientation Not on file documented as of this encounter Plan of Treatment Not on file documented as of this encounter Procedures Procedure Name Priority Date/Time Associated Diagnosis Comments FECAL BACTERIAL PATHOGENS BY PCR Routine 08/22/2022 6:40 EDT documented in this encounter Results * FECAL BACTERIAL PATHOGENS BY PCR (08/22/2022 6:40 EDT) Salmonella PCR Negative Negative 08/23/2022 11:11 EDT [facility] Shigella/Enteroin vasive E. coli Negative Negative 08/23/2022 11:11 EDT [facility] HN LAB CAMPYLOBACTER PCR Negative Negative 08/23/2022 11:11 EDT [facility] Shiga Toxin PCR Negative Negative 11:11 EDT [facility] Feces SPECIMEN FROM RECTUM / Unknown 08/22/2022 6:40 EDT 08/22/2022 17:48 EDT Provider Outr Resulting Lab MICROBIOLOGY - GENERAL ORDERABLES [facility] [address] [place] [address] documented in this encounter Visit Diagnoses Not on filedocumented in this encounter Care Teams Truck Repair Service Estimator Relationship Specialty Start Date End Date Tanesha Burt NP [address] [place] [phone] PCP - General 09/26/16 documented as of this encounter
--- NOTE | 2023-10-31 06:15 | DI.US_ITS ---
APPROVED REPORT EXAM: Comprehensive 2D, Doppler, and color-flow Echocardiogram Patient Location: Out-Patient Warehouse Administrator: Billie Cummings RDCS (AE) Indications: Syncopal episodes, First degree AV block Other Information Study Quality: Adequate Conclusion Normal left ventricular wall thickness and chamber size. Ejection fraction is 55 to 60%. Wall motio n is normal Both atria are normal in size Normal right ventricular size and function There are no structural valvular abnormalities Moderate mitral regurgitation Mild to moderate tricuspid regurgitation. Estimated right ventricular systolic pressure is 25 mmHg Dilated aortic root and ascending aorta. The latter measures 4.25 cm Wall motion Left Ventricle The left ventricle is normal size. The left ventricular systolic function is normal. The left ventric ular ejection fraction is within the normal range. There is normal left ventricular wall thickness. T here is normal LV segmental wall motion. There is no ventricular septal defect visualized. LVEF is 55 -60%. Right Ventricle The right ventricle is normal size. The right ventricular systolic function is normal. Atria The left atrium size is normal. The right atrium size is normal. The interatrial septum is intact wit h no evidence for an atrial septal defect. Aortic Valve The aortic valve is normal in structure. Aortic valve is trileaflet. There is no aortic valvular sten osis. No aortic regurgitation is present. Mitral Valve The mitral valve is normal in structure. No evidence of mitral valve stenosis. Moderate mitral regur gitation. Tricuspid Valve The tricuspid valve is normal in structure. There is no tricuspid valve stenosis. Mild to moderate tr icuspid regurgitation. The RVSP is 25.5_ mmHg. Pulmonic Valve The pulmonary valve is normal in structure. There is no pulmonic valvular stenosis. Trace pulmonic re gurgitation. Great Vessels Aortic root is mildly dilated. The ascending aorta is moderate to severely Aortic arch is not well v isualized. dilated. IVC is normal in size and collapses >50% with inspiration. Pericardium There is no pericardial effusion. 2D Dimensions IVSD d PLAX 0.94 cm F: 0.6-1.0 Ao Root d 3.64 cm F: 2.7 - 3.3 LVPW d PLAX 0.94 cm F: 0.6 - 1.0 Ao Asc Diam d 4.25 cm F: 2.3 - 3.1 LVID d PLAX 4.87 cm F: 3.8 - 5.2 LVDs 3.45 cm F: 2.2 - 3.5 LV EF Teichholz 55.7 % FS 29.08 % LV EDV (Teich) 111.2 mL LV ESV (Teich) 49.3 mL Auto EF LV EDV A4C 112.1 mL LV EDV A2C 95.4 mL LV EDV BP 105.4 mL LV ESV A4C 50.8 mL LV ESV A2C 45.2 mL LV ESV BP 47.7 mL LVEF(%) A4C 54.7 % LVEF(%) A2C 52.6 % LVEF(%) BP 54.7 % LV SV A4C 61.3 ml LV SV A2C 50.2 ml LV SV BP 57.7 ml LV CO A4C 3.4 L/min LV CO A2C 2.6 L/min LV CO BP 3.0 L/min HR A4C 56.16 BPM HR A2C 52.79 BPM LV EDV Index (BP) LA Volume LA Length A4C 5.2 cm LA Length A2C 5.1 cm LA Area A4C s 17.88 cm2 LA Area A2C s 15.59 cm2 LA Vol A4C A-L 52.13 mL LA Vol A2C A-L 40.39 mL LA Vol Biplane A-L 46.3 mL LA Vol/BSA A4C A-L LA Vol/BSA A2C A-L LA Vol/BSA BP A-L 25.3 mL/m2 LA Vol A4C MOD 49.9 mL LA Vol A2C MOD 38.0 mL LA Vol BP MOD 43.8 mL RA Volume RA Area A4C 14.0 cm2 RA ESV A4C (A-L) 31.1mL RA Vol/BSA A4C A-L RA Length A4C 5.3 cm RA ESV A4C (MOD) 29.3mL LV Diastology MV E' medial 0.051 (>0.07 m/s) MV E Vmax 0.81 (0.4-1.3 m/s) MV E/E' MED 15.90 (<14) MV A Vmax 0.90 (0.4-1.3 m/s) MV E' lateral 0.067 (>0.1 m/s) E/A Ratio 0.9 MV E/E' LAT 12.08 (<14) MV E' Average 0.059 m/s MV E/E'(average) 13.73 Aortic Valve AoV Vmax 1.31 m/s LVOT Vmax 0.80 m/s AoV Peak Grad 6.9 mmHg LVOT Peak Grad 2.6 mmHg AoV Area (Vmax) 1.76 cm2 LVOT VTI 0.195 m AoV VTI 0.322 m LVOT Mean Grad 1.4 mmHg AoV Mean Bhupinder. 0.93 m/s LVOT SV 55.89 mL AoV Mean Grad 3.9 mmHg LVOT Diam s 1.90 cm AoV Area (VTI) 1.74 cm2 Velocity Ratio 0.61 Mitral Valve MV DT 218 (160-240 msec) MV Vmax TIPS 0.80 m/s MV Mean Grad 1.0 (<2mmHg) MV VTI 0.328 m Pulmonary Valve PV Vmax 0.75 (0.5-1.5 m/s) RVOT Vmax 0.66 m/s PV Peak Grad 2.2 mmHg RVOT Peak Gr. 1.8 mmHg PV Mean Bhupinder 0.54 m/s RVOT VTI 0.166 m PV Mean Grad 1.3 mmHg RVOT Mean Gr. 1.0 mmHg Tricuspid Valve RA Pressure 3.00 mmHg TR Vmax 2.37 m/s TV S' 0.14 m/s TR Peak Grad 22.4 mmHg RVSP (TR) 25.5 mmHg
== END ==
PROVIDERS: PCP Nurse Practitioner Family; Visit Provider Nurse Practitioner Family
DX: R55 Syncope and collapse (principal); I44.0 Atrioventricular block, first degree
CPT/HCPCS: 93306

== ENCOUNTER 2023-11-29 09:04 | Outpatient (CLI) | payer OTHER, SELFPAY ==
--- NOTE | 2023-11-29 09:00 | RT.EKG_ITS ---
APPROVED REPORT Exam: Resting ECG Reason for Exam: cardiac evaluation Patient Location: O HR:70 bpm ECG Measurements Heart Rate 70 AXIS OR 200 P 19 QRSd 99 QRS -41 QT 441 T 36 QTc 476 Conclusion Sinus rhythm...normal P axis, V-rate 50- 99 Left anterior fascicular block.
== END 2023-11-29 09:05 | disposition home or self-care (01) ==
LOC: DI.CARD 09:05
PROVIDERS: PCP Nurse Practitioner Family; Visit Provider Internal Medicine Cardiovascular Disease
DX: I77.810 Thoracic aortic ectasia (principal); E78.5 Hyperlipidemia, unspecified; I10 Essential (primary) hypertension
CPT/HCPCS: 93010

== ENCOUNTER → 2023-11-29 10:56 | Outpatient (BNVA) | payer OTHER, SELFPAY | PROVIDERS: PCP Nurse Practitioner Family; Referring Provider Nurse Practitioner Family; Visit Provider Internal Medicine Cardiovascular Disease | DX: I77.810 Thoracic aortic ectasia (principal); I10 Essential (primary) hypertension | CPT/HCPCS: 93005; 99214 ==

== ENCOUNTER → 2024-02-04 09:37 | Outpatient (BNVA) | payer MEDICARE, SELFPAY | PROVIDERS: PCP Nurse Practitioner Family; Referring Provider Nurse Practitioner Family; Visit Provider Surgery | DX: Z12.11 Encounter for screening for malignant neoplasm of colon (principal) ==

== ENCOUNTER 2024-02-21 05:52 | Day surgery (SDC) | payer MEDICARE, SELFPAY ==
--- NOTE | 2024-02-20 14:04 | W.PM.DSUDISC ---
Date of service: 02/21/24 Time of Service: 08:28 Discharge Plan Disposition Patient Disposition: Home Condition: Good Discharge Details Reason For Visit: screening colonoscopy Attending Provider: Josh Angeles Primary Care Provider: Jessica Hare Home Meds and New Rx's Prescriptions: Continued Unisom (doxylamine) 25 mg tablet 25 mg PO QHS PRN ferrous sulfate 325 mg (65 mg iron) tablet 325 mg PO Q OTHER DAY Qty: 90 4RF Rx Instructions: Take 1 tablet every other day with your vitamin C magnesium 200 mg tablet 250 mg PO .QOD omega-3 fatty acids-fish oil 300-1,000 mg capsule 1 cap PO DAILY Qty: 90 3RF potassium chloride 20 mEq tablet extended release 40 meq PO DAILY Qty: 180 4RF cholecalciferol (vitamin D3) 75 mcg (3,000 unit) tablet 3,000 unit PO DAILY Qty: 90 4RF fluoxetine 20 mg capsule 20 mg PO DAILY Qty: 90 4RF Rx Instructions: for a total of 60 mg fluoxetine 40 mg capsule 40 mg PO DAILY Qty: 90 4RF losartan 100 mg tablet 100 mg PO DAILY Qty: 90 3RF mirtazapine 7.5 mg tablet 7.5 mg PO QHS Qty: 90 1RF quetiapine 50 mg tablet 50 mg PO DAILY Qty: 90 4RF sucralfate 1 gram tablet 1 g PO BID Qty: 180 4RF thiamine mononitrate (vit B1) 100 mg tablet 100 mg PO DAILY Qty: 90 4RF trazodone 100 mg tablet 100 mg PO QHS PRN (Reason: sleep) Qty: 90 4RF vitamin B complex Capsule 1 cap PO DAILY Qty: 90 3RF atorvastatin 40 mg tablet 40 mg PO QHS Qty: 90 1RF Rx Instructions: 09/18/23 Per [facility]. -hb amlodipine 5 mg tablet 10 mg PO DAILY Qty: 90 4RF Rx Instructions: 09/18/23 Per [facility]. -hb Discontinued polyethylene glycol 3350 17 gram/dose powder 238 g PO ONCE Qty: 238 0RF Rx Instructions: take per colonoscopy instructions bisacodyl [Dulcolax (bisacodyl)] 5 mg tablet,delayed release (DR/EC) 5 mg PO ONCE Qty: 4 0RF Rx Instructions: take per colonoscopy instructions Discharge Instructions Instructions: Colon polyps, Diverticulosis Additional Instructions: Alona, we were able to complete your colonoscopy today, and I hope you are comfortable throughout the procedure. I did find and removed 2 polyps. 1 of these is very small. The other was rather large for a colon polyp. I was certainly able to get a majority of this out, and am optimistic that it has all been resected. This tissue will all be sent off for testing, and once I have the results of that, we will be in touch with my final recommendations. However, at this point, my inclination is to repeat your colonoscopy around 6 months from now to reassess the area from which I removed the large polyp. Incidentally, you have just a little bit of diverticulosis as well diverticula are little weak spots in the wall of the colon that caused the inside lining to pooch outward. These can get infected, inflamed, and on some occasions they can bleed. However, based on everything I see today, and putting all the information together, I suspect it is that large polyp that was causing your bleeding issues. Anticipate having a little bit more bleeding in the days to come from the areas where I remove the polyps. If you need anything, or have any questions at all, please do not hesitate to ask, otherwise I will be in touch once I have the results from the pathology exam. Those usually take about a week or 2. 1. If tolerated, consume a soft, low fiber diet for 1-2 days. 2[address] Do not drive, drink alcohol, operate machinery, make critical decisions, or do activities that require coordination or balance for 24 hours. 3. Because air was put into your colon during the procedure, expelling air from your rectum (passing gas or farting) is normal. 4. You may not have a bowel movement for 1-3 days because of the colonoscopy prep. This is normal. 5. Go directly to the emergency room if you notice any of the following: Develop chills (warm to touch), or if you have a thermometer and your temperature is above 101 Difficulty breathing or difficultly swallowing Persistent vomiting Severe abdominal pain, other than gas cramps Severe chest pain Black, tarry stools Any bleeding ? exceeding one tablespoon 6. Call your physician if the site where your intravenous was started becomes red, swollen, painful, and warm to touch. 7. Your physician has reviewed your pre-procedure medications. Please continue to take those medications as previously ordered. You will be given specific information/education regarding any changes to your medications before leaving. Activity:: Activity as Tolerated Diet:: As Tolerated Discharge Orders Discharge Orders: Discharge Order (Routine); Ordered 02/20/24 Ordered By: Josh Angeles DS: Diagnosis Discharge Diagnosis (1) Encounter for screening colonoscopy: Status: Acute Asessment and Plan: Follow-up on polypectomy results; anticipate 6-month repeat colonoscopy
--- NOTE | 2024-02-20 14:06 | COLE_ITS ---
Date of service: 02/21/24 Time of Service: 08:30 Colonoscopy Report Date of procedure: 02/21/24 Pre-op diagnosis general: screening colonoscopy Post-op diagnosis procedure note: other (Mild proctitis, diverticulosis, colon polyps) Procedure: colonoscopy with polypectomy Surgeon: Josh Angeles Anesthesia Type: General:No Airway Estimated blood loss (mL): 10 Pathology: other (0.25 cm flat polyp from the rectum. 1.25 cm polyp from approximately 15 cm beyond the anal verge removed in piecemeal) Complications: None Disposition: same day Indications: Alona is a 73 year old woman who needs her next screening colonoscopy Prep: Miralax/Dulcolax Procedure Start Time: 07:30 Procedure End Time: 08:20 Retraction Time: 26 Findings: Mild proctitis, 0.25 cm flat polyp from the rectum. 1.25 cm polyp from approximately 15 cm beyond the anal verge removed in piecemeal, mild diverticu losis Procedure Description: After the induction of anesthesia, and with the patient in left lateral decubitus position, I began by performing an external anorectal exam.? Perineum and skin were normal, as was the anal verge.? There was no evidence of external hemorrhoids.? Next, I performed a digital rectal exam.? I did appreciate any abnormal findings.? Next, I advanced a colonoscope into the rectal vault.? I performed retroflexion. This appeared normal. There was a little bit of mild proctitis in the midportion of the rectal body. There was also a 0.25 cm flat polyp in the rectum. This was removed with cold forceps with minimal bleeding. Around 15 cm from the anal verge was a large polyp. Tissue was a little bit friable. I would estimate this to be about 1.25 cm in its largest dimension. It was mostly pedunculated. This was removed in piecemeal with a energize snare polypectomy. The scope was noted to be in the cecum by identification of the ileocecal valve and appendiceal orifice.? I then began withdrawing the colonoscope using repeated irrigation as necessary for full evaluation of the colonic mucosa. There were some occasional sigmoid diverticuli. ?Once the scope was withdrawn to the level of the rectum, great care was taken to examine portions of the rectal folds.? Finally, the scope was withdrawn and the patient was brought to the same-day surgery recovery unit as the anesthetic wore off. ?The findings and instructions were shared with the patient prior to discharge. [place] Bowel Prep [place] Bowel Prep Right Colon: 3 Left Colon: 3 Transverse Colon: 3 Total Score: 9
[2024-02-21 06:14] VITALS: BP 124/84; PULSE 90; RESP 20; TEMP 36.4; O2SAT 95
--- NOTE | 2024-02-21 06:18 | W.ANESPRE ---
General Info Date of Service Date Performed: 02/21/24 Height: 5 ft 6.75 in Weight: 77.167 kg Body Mass Index (BMI): 26.8 Surgical Procedure: Operation Date: 02/21/24 07:35 Proposed Procedure Side Surgeon chica Angeles MD Meds Allergies and Home Medications Allergies Allergy/AdvReac Type Severity Reaction Status Date / Time No Known Allergies Allergy Verified 02/21/24 06:10 Home Medication ?Medication ?Instructions ?Recorded doxylamine succinate 25 mg tablet 25 mg PO QHS PRN 07/12/20 (Unisom (doxylamine)) omega-3 fatty acids-fish oil 300 1 cap PO DAILY #90 caps 06/28/22 mg-1,000 mg capsule ferrous sulfate 325 mg (65 mg 325 mg PO Q OTHER DAY #90 tabs 05/21/23 iron) tablet potassium chloride 20 mEq 40 meq (2 x 20 mEq) PO DAILY #180 08/22/23 tablet,extended release tabs cholecalciferol (vitamin D3) 75 3,000 unit PO DAILY #90 tabs 08/26/23 mcg (3,000 unit) tablet fluoxetine 20 mg capsule 20 mg PO DAILY #90 caps 08/26/23 fluoxetine 40 mg capsule 40 mg PO DAILY #90 caps 08/26/23 losartan 100 mg tablet 100 mg PO DAILY #90 tabs 08/26/23 mirtazapine 7.5 mg tablet 7.5 mg PO QHS #90 tabs 08/26/23 quetiapine 50 mg tablet 50 mg PO DAILY #90 tabs 08/26/23 sucralfate 1 gram tablet 1 g PO BID #180 tabs 08/26/23 thiamine mononitrate (vit B1) 100 100 mg PO DAILY #90 tabs 08/26/23 mg tablet trazodone 100 mg tablet 100 mg PO QHS PRN sleep #90 tabs 08/26/23 vitamin B complex 1 cap PO DAILY #90 caps 08/26/23 magnesium 200 mg tablet 250 mg PO .QOD 10/07/23 atorvastatin 40 mg tablet 40 mg PO QHS #90 tabs 10/14/23 amlodipine 5 mg tablet 10 mg (2 x 5 mg) PO DAILY #90 tabs 02/17/24 Current Visit Medications: Current Medications Generic Name Dose Route Start Last Admin Trade Name Freq PRN Reason Stop Dose Admin IV Miscellaneous Supplies 1 each 02/21/24 06:00 Iv Access IV 03/21/24 23:59 DIRECTED LOUISE Ondansetron HCl 4 mg 02/20/24 14:07 Ondansetron 4 Mg/2 Ml Vial IVP 03/21/24 14:06 Q4H PRN PRN Nausea / Vomiting Sodium Chloride 0 ml 02/21/24 06:00 Normal Saline Flush 10 Ml Syr IV 03/21/24 23:59 PRN PRN Sodium Chloride 0 ml 02/21/24 06:00 Normal Saline 10 Ml Vial IJ 03/21/24 23:59 DIRECTED PRN Sterile Water 0 ml 02/21/24 06:00 Water,Injection,Sterile 10 Ml Vial IJ 03/21/24 23:59 DIRECTED PRN PFSH Active Problems Active Problems: Problem Status Onset Code Encounter for screening colonoscopy Acute Z12.11 Ascending aorta dilatation Acute I77.810 Dilated aortic root Acute I77.810 Hyperlipidemia Acute E78.5 Hip fracture, left Acute 09/05/22 S72.002A Gastritis and duodenitis Acute K29.90 Hypertension Acute I10 Osteoarthritis Acute M19.90 Depressive disorder Acute F32.9 Cerebrovascular accident (CVA) Chronic 11/18/12 I63.9 Alcohol use disorder, moderate, in early remission Chronic 11/01/ F10.21 Gastroesophageal reflux disease Acute K21.9 Insomnia Acute G47.00 Restless leg syndrome Acute G25.81 Hypokalemia Acute E87.6 Blood in the stool Acute K92.1 Diarrhea Acute R19.7 Hypomagnesemia Acute E83.42 Hematochezia Acute K92.1 Alcoholic liver disease Chronic K70.9 Gastroenteritis Acute K52.9 H/O Clostridium difficile infection Acute Z86.19 Alcohol withdrawal Acute F10.939 Medical History Medical History History of ischemic colitis 09/18/23 at [facility]. -hb Screening for colon cancer declines screening Anxiety adult child of alcoholic Goiter (12/04/12) NORMAL THYROID FUNCTION Insomnia (12/05/15) uses otc Insomnia due to alcohol Arthritis of first MTP joint Right renal mass cyst CT 2016- no f/u needed Clostridium difficile colitis Peptic ulcer disease adult child of alcoholic parents Family estrangement NSAID induced gastritis Elevated liver function tests normal in 2020 History of anxiety disorder Surgical History Surgical History History of arthroscopy of knee Status post dilation and curettage Status post laparoscopic hysterectomy Hysterectomy, Laproscopic HAS OVARIES Dilation and curettage Arthroplasty of knee (~1989) LEFT Tobacco Smoking/Tobacco Use Status: Current-Occasional Tobacco Type: cigarettes Passive smoking exposure: Yes Second hand exposure: Yes Alcohol Alcohol Intake: former Substance Use Substance use: Socially Substance use type: marijuana Vital Signs and Lab Results Vital Signs Most Recent Vital Signs in EMR: Temp Pulse Resp BP Pulse Ox 36.4 C L 90 20 124/84 95 02/21/24 06:14 02/21/24 06:14 02/21/24 06:14 02/21/24 06:14 02/21/24 06:14 Lab Results Blood Type / Crossmatch: No Data to Display Complete Blood Count: No Data to Display Complete Metabolic Panel: No Data to Display Liver Function Panel: No Data to Display Coagulation Panel: No Data to Display Cardiac Panel: No Data to Display Arterial Blood Gas: No Data to Display Venous Blood Gas: No Data to Display Pancreas Panel: No Data to Display Thyroid Panel: No Data to Display Infectious Disease: No Data to Display Blood Cultures: No Data to Display Toxicology Panel: No Data to Display Imaging and Studies Imaging and Studies Study information below may be from another EMR and interpreted by another provider. Please see original notes in EMR for more complete details. EKG Summary: 12/06:Conclusion Sinus rhythm...normal P axis, V-rate 50- 99 Left anterior fascicular block. Stress Test Summary: 10/06:MPI Conclusion Myocardial perfusion is normal. There is no ischemia or evidence of prior infarction Ejection fraction is 58% with normal wall motion Echocardiogram Summary: 11/05:Conclusion Normal left ventricular wall thickness and chamber size. Ejection fraction is 55 to 60%. Wall motion is normal Both atria are normal in size Normal right ventricular size and function There are no structural valvular abnormalities Moderate mitral regurgitation Mild to moderate tricuspid regurgitation. Estimated right ventricular systolic pressure is 25 mmHg Dilated aortic root and ascending aorta. The latter measures 4.25 cm Anesthesia Assessment and Plan Anesthesia History Personal History: No History of Anesthesia Complications Family History: No Family History of Anesthesia Complications Exercise Tolerance Exercise Tolerance: Metabolic Equivalents>4 Pertinent Negatives Pertinent Negatives: No Symptoms of GERD Cardiac & Pulmonary Exam Cardiac Exam: Normal S1/S2 Heart Sounds Pulmonary Exam: Clear Bilateral Breath Sounds Implantable Cardiac Device Does patient have a Pacemaker or an ICD?: No Airway Exam Known Difficult Airway: No Mallampati Class: 2 Mouth Opening: Normal (> 3cm) Thyromental Distance: Greater than 3 cm Neck Range of Motion: Full ROM Neck Circumference: Normal Teeth Condition: Normal Dentition ASA Classification ASA Score: ASA 2 Emergency Case?: No NPO Status NPO Status: NPO Clears >2 hours, Solids >8 hours Anesthesia Plan Resuscitation Status: Full Code Anesthesia Technique: General Anesthesia Airway Planned: Natural Airway Monitors Used: Standard Monitors
[2024-02-21 06:23] VITALS: BMI 26.8
--- NOTE | 2024-02-21 07:33 | BOWEL_PTH ---
PATIENT: Alona Terrell LOC: [facility] U#:[id number] AGE/SX: 73/F ROOM: RE02/21/[address]: Josh Angeles MD : 1950 BED: DIS: 02/21/2024 SPEC #: [id number] RECD: 02/21/24 12:28 STATUS: DELFIN RE #: [id number] PAM: 02/21/24 07:[address]: Josh Angeles DEPT: Surgical Specimen RECD BY: Isabella España ENTERED: 02/21/24 12:31 SP TYPE: Bowel OTHR DR: Jessica Hare, MARTIN Tissues: 1 - BIOPSY BOWEL 2 - BIOPSY BOWEL Procedures: GROSS AND MICRO LEVEL 4 Comments: [id number]
[2024-02-21 08:28] VITALS: BP 112/62; PULSE 82; RESP 18; TEMP 36.5; O2SAT 94
[2024-02-21 08:46] VITALS: BP 129/79; PULSE 83; RESP 16; TEMP 36.7; O2SAT 96
--- NOTE | 2024-02-21 09:25 | W.ANESPOSTOP ---
Postoperative Evaluation Date, Time and Location Date Performed: 02/21/24 Time Performed: 08:45 Patient Location: Day Surgery Unit Vital Signs Most Recent Imported Vital Signs: Most Recent Vital Signs Temp Pulse Resp BP Pulse Ox 36.7 C 83 16 129/79 96 02/21/24 08:46 02/21/24 08:46 02/21/24 08:46 02/21/24 08:46 02/21/24 08:46 Pain Score Most Recent Pain Score: Most Recent Pain Score Pain Level 0 02/21/24 08:46 Assessment Mental Status: Awake (Alert & Oriented to Patient Baseline) Airway and Respiratory Function: Patent airway with normal (patient baseline) respiratory exam Cardiovascular Function: Hemodynamically Stable Hydration Status: Adequately Hydrated Nausea & Vomiting: No Nausea or Vomiting Pain: Pt. Denies Any Pain Peripheral Nerve Block: Patient did not receive a nerve block Postoperative Comments:: Pt. at baseline. No complaints.
== END 2024-02-21 09:00 | disposition home or self-care (01) ==
LOC: SUR 05:52
PROVIDERS: PCP Nurse Practitioner Family; Visit Provider Surgery
PROC: 0DJD8ZZ Inspection of Lower Intestinal Tract, Via Natural or Artificial Opening Endoscopic (ICD-10-PCS; CPT 45378; principal; 2024-02-21 07:30)
DX: Z12.11 Encounter for screening for malignant neoplasm of colon (principal); R19.5 Other fecal abnormalities; I77.810 Thoracic aortic ectasia; I10 Essential (primary) hypertension; K51.20 Ulcerative (chronic) proctitis without complications; D12.7 Benign neoplasm of rectosigmoid junction; K57.30 Diverticulosis of large intestine without perforation or abscess without bleeding
CPT/HCPCS: 45385; 45380; 88305; J2704

== ENCOUNTER → 2024-08-26 08:07 | Outpatient (BNVA) | payer MEDICARE, SELFPAY | PROVIDERS: PCP Nurse Practitioner Family; Referring Provider Nurse Practitioner Family; Visit Provider Physical Therapy Assistant | DX: Z12.11 Encounter for screening for malignant neoplasm of colon (principal); Z86.0101 Personal history of adenomatous and serrated colon polyps; Z86.0109 Personal history of other colon polyps | CPT/HCPCS: S0285 ==

== ENCOUNTER 2024-09-08 06:01 | Day surgery (SDC) | payer MEDICARE, SELFPAY ==
--- NOTE | 2024-09-07 07:49 | PDOC.DSDIS_ITS ---
Date of service: 09/08/24 Discharge Plan Disposition Patient Disposition: Home Condition: Good Discharge Details Reason For Visit: screening colonoscopy Attending Provider: Josh Angeles Primary Care Provider: Jessica Hare Home Meds and New Rx's Prescriptions: Continued Unisom (doxylamine) 25 mg tablet 25 mg PO QHS PRN nystatin 100,000 unit/gram ointment 1 applic topical BID Qty: 30 3RF Rx Instructions: under breast twice daily for 2-3 weeks until resolved and then can use as needed magnesium 200 mg tablet 250 mg PO .QOD omega-3 fatty acids-fish oil 300-1,000 mg capsule 1 cap PO DAILY Qty: 90 3RF potassium chloride 20 mEq tablet extended release 40 meq PO DAILY Qty: 180 4RF cholecalciferol (vitamin D3) 75 mcg (3,000 unit) tablet 3,000 unit PO DAILY Qty: 90 4RF fluoxetine 20 mg capsule 20 mg PO DAILY Qty: 90 4RF Rx Instructions: for a total of 60 mg fluoxetine 40 mg capsule 40 mg PO DAILY Qty: 90 4RF quetiapine 50 mg tablet 50 mg PO DAILY Qty: 90 4RF sucralfate 1 gram tablet 1 g PO BID Qty: 180 4RF trazodone 100 mg tablet 100 mg PO QHS PRN (Reason: sleep) Qty: 90 4RF vitamin B complex Capsule 1 cap PO DAILY Qty: 90 3RF atorvastatin 40 mg tablet 40 mg PO QHS Qty: 90 1RF Rx Instructions: 09/17/24 Per [facility]. -hb amlodipine 5 mg tablet 10 mg PO DAILY Qty: 90 4RF Rx Instructions: 24 Per [facility]. -hb mirtazapine 7.5 mg tablet 7.5 mg PO QHS Qty: 90 1RF ferrous sulfate 325 mg (65 mg iron) tablet 325 mg PO Q OTHER DAY Qty: 90 4RF Rx Instructions: Take 1 tablet every other day with your vitamin C thiamine mononitrate (vit B1) 100 mg tablet 100 mg PO DAILY Qty: 90 4RF losartan 100 mg tablet 100 mg PO DAILY Qty: 90 3RF Discontinued polyethylene glycol 3350 17 gram/dose powder 238 g PO ONCE Qty: 238 0RF Rx Instructions: take per colonoscopy instructions bisacodyl [Dulcolax (bisacodyl)] 5 mg tablet,delayed release (DR/EC) 5 mg PO ONCE Qty: 4 0RF Rx Instructions: take per colonoscopy instructions Discharge Instructions Additional Instructions: Alona, it was nice seeing you again today, I hope the colonoscopy was not too stressful for you. Unfortunately, there is a mass growing in the area of your previous large polyp resection. I am not able to remove this all with the colonoscope. Although it is possible that this remains tubulovillous adenoma (the type of polyp that was described in the pathology report originally) I think the safest thing to do is refer you to [facility]'s colorectal specialists for considerations of surgical removal. I did do a few more biopsies of the area today to see if that turns up any more information. Similar to last time, this may result in a little bit of bleeding over the coming days. I am going to start the referral process down to [facility] today. It might be the case that they will not schedule an appointment until these new pathology results are available, but at the very least, we will get the process started. Please feel free to call me at any point if you have any questions or concerns. 1. If tolerated, consume a soft, low fiber diet for 1-2 days. 2[address] Do not drive, drink alcohol, operate machinery, make critical decisions, or do activities that require coordination or balance for 24 hours. 3. Because air was put into your colon during the procedure, expelling air from your rectum (passing gas or farting) is normal. 4. You may not have a bowel movement for 1-3 days because of the colonoscopy prep. This is normal. 5. Go directly to the emergency room if you notice any of the following: Develop chills (warm to touch), or if you have a thermometer and your temperature is above 101 Difficulty breathing or difficultly swallowing Persistent vomiting Severe abdominal pain, other than gas cramps Severe chest pain Black, tarry stools Any bleeding ? exceeding one tablespoon 6. Call your physician if the site where your intravenous was started becomes red, swollen, painful, and warm to touch. 7. Your physician has reviewed your pre-procedure medications. Please continue to take those medications as previously ordered. You will be given specific information/education regarding any changes to your medications before leaving. Stand Alone Forms: Anesthesia Discharge Inst., Feliz Robledo (DSU) Activity:: Activity as Tolerated Diet:: As Tolerated Discharge Orders Discharge Orders: Discharge Order (Routine); Ordered 09/07/24 Ordered By: Josh Angeles DS: Diagnosis Discharge Diagnosis (1) Rectal mass: Status: Acute Asessment and Plan: Follow-up on biopsy results with referral to [facility] colorectal surgery
--- NOTE | 2024-09-07 07:50 | COLE_ITS ---
Date of service: 09/08/24 Time of Service: 07:56 Colonoscopy Report Date of procedure: 09/08/24 Pre-op diagnosis general: screening Post-op diagnosis procedure note: other (Rectal polyp and rectal mass) Procedure: Flexible sigmoidoscopy with polypectomy and biopsies Surgeon: Josh Angeles Anesthesia Type: General:No Airway Estimated blood loss (mL): 10 Pathology: other (0.25 cm flat rectal polyp, cold forceps biopsies of rectal mass at 15 cm) Complications: None Disposition: same day Indications: Alona is a 74 year old woman with a history of a large tubulovillous adenoma. She us undegoing follow up screening colonoscopy because of the size of the previous adenoma. Prep: Miralax/Dulcolax Procedure Start Time: 07:31 Procedure End Time: 07:45 Findings: 0.25 cm flat rectal polyp, rectal mass at 15 cm Procedure Description: After the induction of anesthesia, and with Alona in left lateral decubitus position, I began by performing an external anorectal exam.? This was normal next, I performed a digital rectal exam.? This felt normal.? Next, I advanced a colonoscope into the rectal vault.? The rectum was insufflated, and a 0.25 cm flat polyp was found in the distal rectum. This was removed with cold forceps.? I advanced the camera up through the rectum, and at the upper portion of the rectal vault, just on the over side of the top posterior was a flat friable area of mucosa that was heaped relative to the surrounding normal mucosa. This carpet is approximately 1/3-1/2 of the rectal wall. The camera passes beyond it with ease. Despite several attempts to approach this, not able to get an adequate target for complete resection. I did perform some cold forceps biopsies in an attempt to assess for malignancy. There was minimal bleeding from the biopsies. Having undergone a complete colonoscopy 6 months prior, I do not think it is necessary to examine the remaining length of the colon. Therefore, with adequate tissue specimen, I withdrew the camera. In my opinion, this cannot be removed colonoscopically, even if it is just adenomatous polyp. In that regards, we will plan for referral down to [facility] to meet with the colorectal specialist for surgical resection.
[2024-09-08 06:34] VITALS: BP 137/96; PULSE 100; RESP 20; TEMP 36.4; O2SAT 96
[2024-09-08] MEDS: Lactated Ringers 1,000 ML 80 ML IV (06:53)
--- NOTE | 2024-09-08 07:07 | ANES.PREOP_ITS ---
General Info Date of Service Date Performed: 09/08/24 Height: 5 ft 6.75 in Weight: 72.3 kg Body Mass Index (BMI): 25.1 Surgical Procedure: Operation Date: 09/08/24 07:35 Proposed Procedure Side Surgeon chica Angeles MD Meds Allergies and Home Medications Allergies Allergy/AdvReac Type Severity Reaction Status Date / Time No Known Allergies Allergy Verified 09/08/24 06:25 Home Medication ?Medication ?Instructions ?Recorded doxylamine succinate 25 mg tablet 25 mg PO QHS PRN 07/12/20 (Unisom (doxylamine)) omega-3 fatty acids-fish oil 300 1 cap PO DAILY #90 caps 06/28/22 mg-1,000 mg capsule potassium chloride 20 mEq 40 meq (2 x 20 mEq) PO DAILY #180 08/22/23 tablet,extended release tabs cholecalciferol (vitamin D3) 75 3,000 unit PO DAILY #90 tabs 08/26/23 mcg (3,000 unit) tablet fluoxetine 20 mg capsule 20 mg PO DAILY #90 caps 08/26/23 fluoxetine 40 mg capsule 40 mg PO DAILY #90 caps 08/26/23 quetiapine 50 mg tablet 50 mg PO DAILY #90 tabs 08/26/23 sucralfate 1 gram tablet 1 g PO BID #180 tabs 08/26/23 trazodone 100 mg tablet 100 mg PO QHS PRN sleep #90 tabs 08/26/23 vitamin B complex 1 cap PO DAILY #90 caps 08/26/23 magnesium 200 mg tablet 250 mg PO .QOD 10/07/23 atorvastatin 40 mg tablet 40 mg PO QHS #90 tabs 10/14/23 amlodipine 5 mg tablet 10 mg (2 x 5 mg) PO DAILY #90 tabs 02/17/24 nystatin 100,000 unit/gram topical 1 applic topical BID #30 grams 02/24/24 ointment mirtazapine 7.5 mg tablet 7.5 mg PO QHS #90 tabs 04/20/24 ferrous sulfate 325 mg (65 mg 325 mg PO Q OTHER DAY #90 tabs 07/22/24 iron) tablet thiamine mononitrate (vit B1) 100 100 mg PO DAILY #90 tabs 07/22/24 mg tablet losartan 100 mg tablet 100 mg PO DAILY #90 tabs 08/19/24 Current Visit Medications: Current Medications Generic Name Dose Route Start Last Admin Trade Name Freq PRN Reason Stop Dose Admin Ringer's Solution 1,000 mls @ 80 mls/hr 09/08/24 06:00 09/08/24 06:53 IV 10/04/24 23:59 80 mls/hr INFUSION LOUISE Administration IV Miscellaneous Supplies 1 each 09/08/24 06:00 Iv Access IV 10/04/24 23:59 DIRECTED LOUISE Ondansetron HCl 4 mg 09/07/24 07:52 Ondansetron 4 Mg/2 Ml Vial IVP 10/07/24 07:51 Q4H PRN PRN Nausea / Vomiting Sodium Chloride 0 ml 09/08/24 06:00 Normal Saline Flush 10 Ml Syr IV 10/04/24 23:59 PRN PRN Sodium Chloride 0 ml 09/08/24 06:00 Normal Saline 10 Ml Vial IJ 10/04/24 23:59 DIRECTED PRN Sterile Water 0 ml 09/08/24 06:00 Water,Injection,Sterile 10 Ml Vial IJ 10/04/24 23:59 DIRECTED PRN PFSH Active Problems Active Problems: Problem Status Onset Code Encounter for screening colonoscopy Acute Z12.11 Ascending aorta dilatation Acute I77.810 Dilated aortic root Acute I77.810 Hyperlipidemia Acute E78.5 Hip fracture, left Acute 09/05/22 S72.002A Gastritis and duodenitis Acute K29.90 Hypertension Acute I10 Osteoarthritis Acute M19.90 Depressive disorder Acute F32.9 Cerebrovascular accident (CVA) Chronic 11/18/12 I63.9 Alcohol use disorder, moderate, in early remission Chronic 11/01/16 F10.21 Gastroesophageal reflux disease Acute K21.9 Insomnia Acute G47.00 Restless leg syndrome Acute G25.81 Hypokalemia Acute E87.6 Blood in the stool Acute K92.1 Diarrhea Acute R19.7 Hypomagnesemia Acute E83.42 Hematochezia Acute K92.1 Alcoholic liver disease Chronic K70.9 Gastroenteritis Acute K52.9 H/O Clostridium difficile infection Acute Z86.19 Alcohol withdrawal Acute F10.939 Medical History Medical History Hyperplastic colon polyp (~02/2024) Tubulovillous adenoma (~02/2024) History of ischemic colitis 09/18/[address] [facility]. [facility] Screening for colon cancer declines screening Anxiety adult child of alcoholic Goiter (12/04/12) NORMAL THYROID FUNCTION Insomnia (12/05/15) uses otc Insomnia due to alcohol Arthritis of first MTP joint Right renal mass cyst CT 2016- no f/u needed Clostridium difficile colitis Peptic ulcer disease adult child of alcoholic parents Family estrangement NSAID induced gastritis Elevated liver function tests normal in 2020 History of anxiety disorder Surgical History Surgical History History of colonoscopy (~02/2024) History of arthroscopy of knee Status post dilation and curettage Status post laparoscopic hysterectomy Hysterectomy, Laproscopic HAS OVARIES Dilation and curettage Arthroplasty of knee (~1989) LEFT Tobacco Smoking/Tobacco Use Status: Current-Occasional Tobacco Type: e-cigarettes Passive smoking exposure: Yes Second hand exposure: Yes Alcohol Alcohol Intake: former Year quit: 2022 Substance Use Substance use: Daily Substance use type: marijuana Details: Smoked marijuana this morning 09/08/24. Vital Signs and Lab Results Vital Signs Most Recent Vital Signs in EMR: Most Recent Vital Signs Temp Pulse Resp BP Pulse Ox 36.4 C L 100 H 20 137/96 H 96 09/08/24 06:34 09/08/24 06:34 09/08/24 06:34 09/08/24 06:34 09/08/24 06:34 Lab Results Blood Type / Crossmatch: 2 No Data to Display Complete Blood Count: 2 No Data to Display Complete Metabolic Panel: 2 No Data to Display Liver Function Panel: 2 No Data to Display Coagulation Panel: 2 No Data to Display Cardiac Panel: 2 No Data to Display Arterial Blood Gas: 2 No Data to Display Venous Blood Gas: 2 No Data to Display Pancreas Panel: 2 No Data to Display Thyroid Panel: 2 No Data to Display Infectious Disease: 2 No Data to Display Blood Cultures: 2 No Data to Display Toxicology Panel: 2 No Data to Display Imaging and Studies Imaging and Studies Study information below may be from another EMR and interpreted by another provider. Please see original notes in EMR for more complete details. EKG Summary: 12/06:Conclusion Sinus rhythm...normal P axis, V-rate 50- 99 Left anterior fascicular block. Stress Test Summary: 10/06:MPI Conclusion Myocardial perfusion is normal. There is no ischemia or evidence of prior infarction Ejection fraction is 58% with normal wall motion Echocardiogram Summary: 11/05:Conclusion Normal left ventricular wall thickness and chamber size. Ejection fraction is 55 to 60%. Wall motion is normal Both atria are normal in size Normal right ventricular size and function There are no structural valvular abnormalities Moderate mitral regurgitation Mild to moderate tricuspid regurgitation. Estimated right ventricular systolic pressure is 25 mmHg Dilated aortic root and ascending aorta. The latter measures 4.25 cm Anesthesia Assessment and Plan Anesthesia History Personal History: No History of Anesthesia Complications Family History: No Family History of Anesthesia Complications Exercise Tolerance Exercise Tolerance: Metabolic Equivalents>4 Pertinent Negatives Pertinent Negatives: No Symptoms of GERD Cardiac & Pulmonary Exam Cardiac Exam: Normal S1/S2 Heart Sounds Pulmonary Exam: Clear Bilateral Breath Sounds Implantable Cardiac Device Does patient have a Pacemaker or an ICD?: No Airway Exam Known Difficult Airway: No Mallampati Class: 2 Mouth Opening: Normal (> 3cm) Thyromental Distance: Greater than 3 cm Neck Range of Motion: Full ROM Neck Circumference: Normal Teeth Condition: Normal Dentition Tooth Numberin 1. broken tooth in this area 2. broken tooth in this area ASA Classification ASA Score: ASA 3 Emergency Case?: No NPO Status NPO Status: NPO Clears >2 hours, Solids >8 hours Anesthesia Plan Resuscitation Status: Full Code Anesthesia Technique: General Anesthesia Airway Planned: Natural Airway Monitors Used: Standard Monitors
[2024-09-08 07:26] VITALS: BMI 25.1
--- NOTE | 2024-09-08 07:34 | BOWEL_PTH ---
PATIENT: Alona Terrell LOC: [facility] U#:[id number] AGE/SX: 74/F ROOM: RE09/08/[address]: Josh Angeles MD : [id number] BED: DIS: 09/08/2024 SPEC #: [id number] RECD: 09/08/24 12:48 STATUS: DELFIN RE #: [id number] PAM: 09/08/24 07:[address]: Josh Angeles DEPT: Surgical Specimen RECD BY: Isabella España ENTERED: 09/08/24 12:53 SP TYPE: Bowel OTHR DR: Jessica Hare, MARTIN Tissues: 1 - BIOPSY BOWEL 2 - BIOPSY BOWEL Procedures: GROSS AND MICRO LEVEL 4 Comments: [id number]
[2024-09-08 07:58] VITALS: BP 93/70; PULSE 95; RESP 16; TEMP 36.5; O2SAT 93
[2024-09-08 08:31] VITALS: BP 103/77; PULSE 70; RESP 17; TEMP 36.7; O2SAT 94
--- NOTE | 2024-09-08 09:33 | W.ANESPOSTOP ---
Postoperative Evaluation Date, Time and Location Date Performed: 09/08/24 Time Performed: 08:00 Patient Location: Day Surgery Unit Vital Signs Most Recent Imported Vital Signs: Most Recent Vital Signs Temp Pulse Resp BP Pulse Ox 36.7 C 70 17 103/77 94 09/08/24 08:31 09/08/24 08:31 09/08/24 08:31 09/08/24 08:31 09/08/24 08:31 Pain Score Most Recent Pain Score: Most Recent Pain Score Pain Level 0 09/08/24 08:31 Assessment Mental Status: Awake (Alert & Oriented to Patient Baseline) Airway and Respiratory Function: Patent airway with normal (patient baseline) respiratory exam Cardiovascular Function: Hemodynamically Stable Hydration Status: Adequately Hydrated Nausea & Vomiting: No Nausea or Vomiting Pain: Pt. Denies Any Pain Peripheral Nerve Block: Patient did not receive a nerve block
== END 2024-09-08 08:37 | disposition home or self-care (01) ==
LOC: SUR 06:01
PROVIDERS: PCP Nurse Practitioner Family; Visit Provider Surgery
PROC: 0DJD8ZZ Inspection of Lower Intestinal Tract, Via Natural or Artificial Opening Endoscopic (ICD-10-PCS; CPT 45378; principal; 2024-09-08 07:30)
DX: Z12.11 Encounter for screening for malignant neoplasm of colon (principal); K62.89 Other specified diseases of anus and rectum; K62.1 Rectal polyp; C18.9 Malignant neoplasm of colon, unspecified
CPT/HCPCS: 45380; 88305; J2704; J3010

== ENCOUNTER 2024-09-23 02:47 | Outpatient (CLI) | payer MEDICARE, SELFPAY ==
--- NOTE | 2024-09-23 06:45 | DI.MAMMO_ITS ---
Exam(s) MAMMO SCREENING EXAM: MAMMO SCREENING CLINICAL HISTORY: screening,z12.39 TECHNIQUE: Bilateral full field digital CC and MLO mammographic images were obtained with 3D tomosyn thesis and utilizing computer aided detection (CAD). COMPARISON: Comparison is made with prior examinations. FINDINGS: Masses/Architectural Distortion: No suspicious masses or areas of architectural distortion are presen t. Microcalcifications: No suspicious pleomorphic-type are seen. Skin Thickening/Nipple Retraction: None. IMPRESSION: 1. No significant interval change with no specific features of malignancy noted. 2. Unless there is more urgent need, screening mammography is recommended, as per [place] [employer] guidelines. BI-RADS Category 1 - Negative Breast Density - Category B - There are scattered areas of fibroglandular density. Breast density Category C or D implies that the patient has dense breast tissue. Dense breast tissue can make it harder to find cancer on a mammogram. Dense breast tissue is also associated with an incr eased risk of breast cancer. This information about the result of the mammogram report was provided to the patient to raise their awareness. Use this report when you speak with the patient about their risks for breast cancer, which includes their family history. At that time, you may recommend additional screening tests (Ultrasoun d or MRI) as these tests may add significant information. A negative radiographic report should not delay biopsy if a dominant or clinically suspicious mass is present. Up to ten percent of cancers are not identified on mammography. A negative report may reinforce clinical impression. Adenosis and dense breasts may obscure an underlying neoplasm. False positive reports average 6 to 10%. Patient will receive a letter notifying them of these results.
== END 2024-09-23 03:07 ==
LOC: DI 02:48
PROVIDERS: PCP Nurse Practitioner Family; Visit Provider Nurse Practitioner Family
DX: Z12.31 Encounter for screening mammogram for malignant neoplasm of breast (principal); R92.323 Mammographic fibroglandular density, bilateral breasts
CPT/HCPCS: 77063; 77067

== ENCOUNTER 2024-10-08 00:48 | Outpatient (CLI) | payer MEDICARE, SELFPAY ==
--- NOTE | 2024-10-08 07:45 | DI.CT_ITS ---
Exam(s) CT CHEST/ABD/PEL W EXAM: CT CHEST/ABD/PEL W CLINICAL HISTORY: Colon cancer,? mets,c18.9. TECHNIQUE: Imaging Protocol: Axial computed tomography images with coronal and sagittal reformatted images were created and reviewed. Computer aided detection (CAD) was utilized. CONTRAST MATERIAL: Intravenous: Omnipaque 350 Contrast volume:100 ml Oral: yes / COMPARISON: CT CT ABDOMEN PELVIS W from 08/22/2022 CT,NM,TMT NM MPI REST STRESS GRP from 10/10/2023 FINDINGS: CHEST: Pulmonary parenchyma: No consolidation. No dominant measurable mass. Tracheobronchial tree: No bronchiectasis. No mucous plugging.No bronchial wall thickening. Pleura: No effusion or pneumothorax. Mediastinum: Within normal limits. Pulmonary arteries: No visible emboli. Cardiovascular: Heart size is normal. No pericardial effusion. Ascending thoracic aorta dilated to 4.6 cm. Bones: Unremarkable for age. No lytic or blastic lesions.No compression fractures. Soft tissues: Unremarkable. ABDOMEN and PELVIS: Liver: Normal density. No suspicious mass. Gallbladder and biliary tract: No evidence of stones or wall thickening. No biliary dilatation. Pancreas: Normal density, no abnormal calcifications or inflammatory process. Spleen: Normal. Kidneys: Normal size, contour and axis. No radiodense stones. No obstructive uropathy. Left simple renal cyst. No suspicious masses seen. Adrenal glands: No masses seen. Aorta: Abdominal portion non-dilated. Lymph nodes: Within normal limits. Soft tissues: Unremarkable. Bladder: empty. Bowel: No obstruction. Focal area of wall thickening in the distal sigmoid which could represent the known mass. Peritoneal cavity: No ascites. No focal collection. No mesenteric inflammatory response. No free air. Bones: Unremarkable for age. Reproductive organs: Unremarkable hysterectomy. IMPRESSION: No evidence of metastatic disease in the chest, abdomen or pelvis. Focal area of wall thickening the distal sigmoid which could represent a colonic mass. RADIATION DOSE DELIVERED: 682.45mGy.cm Total DLP DATA REPOSITORY: All CT scans at this facility are submitted to the National Radiology Data Registry (NRDR) Dose Index Registry (DIR) with the [employer] ([employer]). RADIATION OPTIMIZATION: All CT scans at this facility use at least one of these dose optimization techniques: automated exposure control; mA and/or kV adjustment per patient size (includes targeted exams where dose is matched to clinical indication); or iterative reconstruction.
[2024-10-08] MEDS: Barium Sulfate 2% W/V-Creamy Vanilla Smoothie 450 ML BTL PO ×2 (11:21→11:22)
[2024-10-08 11:36] LABS: CREATININE 1.2 mg/dL (0.55-1.02)
[2024-10-08] MEDS: Omnipaque 350 MG/ML 100 ML BTL IJ (13:42)
[2024-10-08] MEDS: Normal Saline - Diluent 50 ML VIAL IJ (13:43)
== END 2024-10-08 01:08 ==
LOC: DI 00:48
PROVIDERS: PCP Nurse Practitioner Family; Visit Provider Surgery
DX: C18.9 Malignant neoplasm of colon, unspecified (principal)
CPT/HCPCS: 74177; 71260; 82565; J3490

== ENCOUNTER → 2024-11-12 09:29 | Outpatient (BNVA) | payer MEDICARE, SELFPAY | PROVIDERS: PCP Nurse Practitioner Family; Referring Provider Nurse Practitioner Family; Visit Provider Internal Medicine Cardiovascular Disease | DX: I77.810 Thoracic aortic ectasia (principal); I10 Essential (primary) hypertension | CPT/HCPCS: 99213 ==